=== PATIENT | female | born 1965 | race African-American/Black ===

== ENCOUNTER 2016-05-20 15:16 | Inpatient (IN) | payer MEDICAID ==
[~2016-05-20] VITALS: Ht 162.6 cm; Wt 72.2 kg
[~2016-05-20 15:16] MED LIST: FURO40TA PO; KPHOS250 PO; LACT10SO PO; MAGN500T2 PO; PENT400T PO; PHYT5TAB2 PO; POTA-163 PO; PROT40TA PO; SPIR100T PO; VITA100T2 PO; XIFA550T4 PO
[2016-05-20 15:17] VITALS: BP 128/74; PULSE 91; RESP 14; TEMP 99.4; O2SAT 100
[2016-05-20 16:26] LABS: AUTOMATED NEUTROPHIL # 2.4 TH/MM3 (1.8-7.7); BASOPHIL % 0.4 % (0.0-2.0); EOSINOPHIL # 0.1 TH/MM3 (0-0.4); EOSINOPHIL % 1.6 % (0.0-4.0); HEMATOCRIT 29.4 % (35.0-46.0); LYMPH % 21.7 % (9.0-44.0); LYMPHOCYTE # 0.8 TH/MM3 (1.0-4.8); MEAN CELL VOLUME 98.2 FL (80.0-100.0); MEAN CORPUSCULAR HEMOGLOBIN 32.2 PG (27.0-34.0); MEAN CORPUSCULAR HGB CONC 32.7 % (32.0-36.0); MONO % 13.9 % (0.0-8.0); NEUT % 62.4 % (16.0-70.0); PLATELET COUNT 52 TH/MM3 (150-450); RED BLOOD COUNT 2.99 MIL/MM3 (4.00-5.30); RED CELL DISTRIBUTION WIDTH 24.3 % (11.6-17.2); WHITE BLOOD COUNT 3.9 TH/MM3 (4.0-11.0)
[2016-05-20 16:27] LABS: HEMO FLAGS AUTO DIFF
[2016-05-20 16:48] LABS: ALT (GPT) 28 U/L (10-53); ANION GAP 8 MEQ/L (5-15); AST (GOT) 52 U/L (15-37); BICARBONATE 21.6 MEQ/L (21.0-32.0); BLOOD UREA NITROGEN 5 MG/DL (7-18); CHLORIDE 103 MEQ/L (98-107); GLOMERULAR FILTRATION RATE 90 ML/MIN (>89); SODIUM (NA) 133 MEQ/L (136-145)
[2016-05-20 16:50] LABS: ALKALINE PHOSPHATASE 190 U/L (45-117); TOTAL BILIRUBIN ADULT 4.9 MG/DL (0.2-1.0)
[2016-05-20 17:09] LABS: BLOOD, URINE SMALL (NEG); COMMENT (UR) CULT NOT INDICATED; CULTURE IF INDICATED CULT NOT INDICATED; GLUCOSE,URINE NEG (NEG); HYALINE CAST, URINE 1 /lpf (RARE); KETONE, URINE NEG (NEG); NITRITE,URINE NEG (NEG); PH, URINE 6.5 (5.0-8.5); SQUAMOUS EPITHELIAL CELL URINE 4 /hpf (0-5); URINE COLOR YELLOW (YELLW/STRAW)
--- NOTE | 2016-05-20 17:12 | PD ---
HPI Chief Complaint: Abdominal Pain Time Seen by Provider: 17:12 Travel History International Travel<30 days: No Contact w/Intl Traveler<30days: No Traveled to known affect area: No History of Present Illness HPI 50-year-old female with history of end-stage liver disease secondary to alcoholic cirrhosis, ascites, continued alcohol dependency in 3-4 beers daily up until May 06, 2016, presents to emergency department for evaluation of abdominal pain, diarrhea, and intermittent fever since being discharged May 14, 2016. Patient states she has taken ibuprofen to help with her fever and her temperature max has been 101. She reports nonproductive cough and mild chest congestion. She reports no significant chest pain. States her abdominal pain is isolated to the right side and around the site where she reports the paracentesis was performed. She denies any urinary symptoms. States bowel movements have been without christopher red or black tarry stools. Denies any other symptoms at this time. PFSH Past Medical History Arthritis: No Asthma: Yes Autoimmune Disease: No Blood Disorders: Yes (ETOH ABUSE) Anxiety: Yes Depression: No Heart Rhythm Problems: No Cancer: No Cardiovascular Problems: Yes High Cholesterol: No Chemotherapy: No Chest Pain: No Congestive Heart Failure: No Cirrhosis: Yes COPD: No Cerebrovascular Accident: No Diabetes: No Diminished Hearing: No Endocrine: No Gastrointestinal Disorders: Yes (ESOPHAGEAL VARICIES.) GERD: Yes Glaucoma: No Genitourinary: No Hepatitis: Yes Hiatal Hernia: No Hypertension: Yes Immune Disorder: No Kidney Stones: No Musculoskeletal: No Neurologic: No Psychiatric: No Reproductive: No Respiratory: Yes Immunizations Current: Yes Migraines: No Myocardial Infarction: No Radiation Therapy: No Renal Failure: No Seizures: No Sickle Cell Disease: No Sleep Apnea: No Thyroid Disease: No Ulcer: Yes ?: Not : 3 Para: 2 Past Surgical History Abdominal Surgery: No AICD: No Appendectomy: No Arteriovenous Shunt: No Cardiac Surgery: No Section: Yes Cholecystectomy: No Ear Surgery: No Endocrine Surgery: No Eye Surgery: No Gynecologic Surgery: No Insulin Pump: No Joint Replacement: Yes Oral Surgery: No Pacemaker: No Thoracic Surgery: No Other Surgery: Yes (ESOPHAGEAL VARICIES) Social History Alcohol Use: Yes (beer daily) Tobacco Use: No Substance Use: No Allergies-Medications (Allergen,Severity, Reaction): Coded Allergies: Levofloxacin (Verified Allergy, Severe, Rash, 05/20/16) Reported Meds & Prescriptions Reported Meds & Active Scripts Active Magnesium Oxide 500 Mg Tab 500 Mg PO DAILY Potassium Chloride ER (Potassium Chloride) 20 Meq Tab 20 Meq PO DAILY Furosemide 40 Mg Tab 40 Mg PO DAILY Lactulose Liq (Lactulose) 10 Gm/15 Ml Soln 30 Ml PO DAILY Protonix (Pantoprazole Sodium) 40 Mg Tab 40 Mg PO DAILY Pentoxifylline ER (Pentoxifylline) 400 Mg Tab 400 Mg PO Q8H Mephyton (Phytonadione) 5 Mg Tab 5 Mg PO DAILY K-Phos Neutral (Potassium Phos/Sodium Phos) 155-852-130 Mg Tab 250 Mg PO Q6HR Xifaxan (Rifaximin) 550 Mg Tab 550 Mg PO BID Vitamin B-1 (Thiamine HCl) 100 Mg Tab 100 Mg PO DAILY Spironolactone 100 Mg Tab 100 Mg PO DAILY Review of Systems Except as stated in HPI: all other systems reviewed are Neg Physical Exam Narrative GENERAL: Chronically ill-appearing female patient, ambulatory and without distress. SKIN: Warm and dry. HEAD: Normocephalic. Atraumatic EYES: No scleral icterus. No injection or drainage. NECK: Supple, trachea midline. No JVD or lymphadenopathy. CARDIOVASCULAR: Regular rate and rhythm. 2/6 systolic murmur. RESPIRATORY: Breath sounds diminished, coarse, equal bilaterally. No accessory muscle use. GASTROINTESTINAL: Rotund, soft, tender right upper quadrant without rebound tenderness. Ascitic abdomen. No guarding. MUSCULOSKELETAL: No cyanosis. Distal pulses are palpable. Cap refill is within normal limits. BACK: Nontender without obvious deformity. No CVA tenderness. Data Data Last Documented VS Vital Signs Date Time Temp Pulse Resp B/P Pulse Ox O2 Delivery O2 Flow Rate FiO2 05/20/16 17:18 99.6 91 27 139/83 100 Room Air Orders Complete Blood Count With Diff (05/20/16 15:28) Comprehensive Metabolic Panel (05/20/16 15:28) Urinalysis - C+S If Indicated (05/20/16 15:28) Lactic Acid Sepsis Protocol (05/20/16 15:28) Blood Culture (05/20/16 15:28) Iv Access Insert/Monitor (05/20/16 15:28) Oxygen Administration (05/20/16 15:28) Oximetry (05/20/16 15:28) Ammonia (05/20/16 15:28) Influenzae A/B Antigen (05/20/16 17:24) Chest, Pa & Lat (05/20/16 ) Electrocardiogram (05/20/16 ) C Diff Toxin Pcr (05/20/16 17:42) Ct Abd/Pel W/O Iv Contrast (05/20/16 ) Metronidazole 500 Mg Inj (Flagyl 500 Mg (05/20/16 19:00) Ceftriaxone Inj (Rocephin Inj) (05/20/16 19:00) Admit Order (Ed Use Only) (05/20/16 19:08) Labs Laboratory Tests Test 05/20/16 05/20/16 05/20/16 16:07 16:39 18:35 White Blood Count 3.9 TH/MM3 Red Blood Count 2.99 MIL/MM3 Hemoglobin 9.6 GM/DL Hematocrit 29.4 % Mean Corpuscular Volume 98.2 FL Mean Corpuscular Hemoglobin 32.2 PG Mean Corpuscular Hemoglobin 32.7 % Concent Red Cell Distribution Width 24.3 % Platelet Count 52 TH/MM3 Mean Platelet Volume 10.9 FL Neutrophils (%) (Auto) 62.4 % Lymphocytes (%) (Auto) 21.7 % Monocytes (%) (Auto) 13.9 % Eosinophils (%) (Auto) 1.6 % Basophils (%) (Auto) 0.4 % Neutrophils # (Auto) 2.4 TH/MM3 Lymphocytes # (Auto) 0.8 TH/MM3 Monocytes # (Auto) 0.5 TH/MM3 Eosinophils # (Auto) 0.1 TH/MM3 Basophils # (Auto) 0.0 TH/MM3 CBC Comment AUTO DIFF Differential Comment AUTO DIFF CONFIRMED Sodium Level 133 MEQ/L Potassium Level 4.0 MEQ/L Chloride Level 103 MEQ/L Carbon Dioxide Level 21.6 MEQ/L Anion Gap 8 MEQ/L Blood Urea Nitrogen 5 MG/DL Creatinine 0.82 MG/DL Estimat Glomerular Filtration 90 ML/MIN Rate Random Glucose 147 MG/DL Lactic Acid Level 2.5 mmol/L 1.3 mmol/L Calcium Level 8.0 MG/DL Total Bilirubin 4.9 MG/DL Aspartate Amino Transf 52 U/L (AST/SGOT) Alanine Aminotransferase 28 U/L (ALT/SGPT) Alkaline Phosphatase 190 U/L Ammonia 17 MCMOL/L Total Protein 7.1 GM/DL Albumin 2.6 GM/DL Urine Color YELLOW Urine Turbidity CLEAR Urine pH 6.5 Urine Specific [place] 1.011 Urine Protein NEG mg/dL Urine Glucose (UA) NEG mg/dL Urine Ketones NEG mg/dL Urine Occult Blood SMALL Urine Nitrite NEG Urine Bilirubin SMALL Urine Urobilinogen LESS THAN 2.0 MG/DL Urine Leukocyte Esterase SMALL Urine RBC 8 /hpf Urine WBC 2 /hpf Urine Squamous Epithelial 4 /hpf Cells Urine Hyaline Casts 1 /lpf Microscopic Urinalysis Comment CULT NOT INDICATED MDM Medical Decision Making Medical Screen Exam Complete: Yes Emergency Medical Condition: Yes Medical Record Reviewed: Yes Differential Diagnosis Peritonitis versus liver cirrhosis versus ascites versus sepsis versus electrolyte abnormality versus UTI versus influenza versus pneumonia Narrative Course 50 year-old female presents to emergency department for evaluation of persistent abdominal pain, diarrhea, and fever since being discharged from the 2015. Patient appears chronically ill. She does have tenderness deep palpation of the abdomen but without definite peritoneal signs. Patient's CBC is consistent with previous lab work. She is looking with white count 3.9. She does have anemia hemoglobin 9.6. CMP is without acute concern. Lactic acid is 2.5. Ammonia 17. I discussed the patient my attending physician Dr. Rojas who also assessed the patient a sheet is given IV Flagyl and Rocephin. CT imaging of the abdomen shows cirrhosis and portal hypertension; moderate, gallbladder wall thickening with edema and associated ascites, left adnexal cyst. Chest x-ray shows mild interstitial prominence, lingular subsegmental atelectasis. I discussed the patient with Dr. Orozco, [facility]. Patient will be admitted observation to the hospitalist service. Diagnosis Primary Impression: Liver cirrhosis Qualified Code: K70.31 - Alcoholic cirrhosis of liver with ascites Additional Impressions: Abdominal pain Qualified Code: R10.11 - Right upper quadrant abdominal pain Anemia Qualified Code: D64.9 - Anemia, unspecified type Ascites Qualified Code: K70.31 - Ascites due to alcoholic cirrhosis Admitting Information Admitting Physician Requests: Observation Condition: Stable Maite Clayton BO May 20, 2016 17:12
[2016-05-20 17:18] VITALS: BP 139/83; PULSE 91; RESP 27; TEMP 99.6; O2SAT 100
[2016-05-20 17:32] LABS: SCAN/DIFF AUTO DIFF CONFIRMED
[2016-05-20 18:15] LABS: LACTIC ACID GHOST NOT REPORTABLE
--- NOTE | 2016-05-20 18:26 | RADRPT ---
EXAM DATE/TIME: 05/20/2016 18:04 [facility] COMPARISON: CHEST PA & LAT, May 06, 2010, 10:35. INDICATIONS : Shortness of breath MEDICAL HISTORY : Cirrhosis. Hypertension. Gastroesophageal reflux disease.Ulcers SURGICAL HISTORY : Esophageal varices repair ENCOUNTER: Initial ACUITY: 1 day PAIN SCORE: 0/10 LOCATION: Bilateral chest FINDINGS: Cardiomegaly. Lingular atelectasis, subsegmental. Slight wedging of T8 and T12 again noted. No consol idation or effusion. mild interstitial prominence. CONCLUSION: Mild interstitial prominence. Lingular subsegmental atelectasis. Andrew Rowe MD on May 20, 2016 at 18:24 Board Certified Radiologist. This report was verified electronically.
--- NOTE | 2016-05-20 18:55 | RADRPT ---
EXAM DATE/TIME: 05/20/2016 18:40 [facility] COMPARISON: CT ABDOMEN & PELVIS W CONTRAST, May 07, 2016, 22:08. INDICATIONS : Diffuse abdominal pain with fever today; recent history of liver cirrhosis with fluid drainage and bl ood transfusions. ORAL CONTRAST: No oral contrast ingested. RADIATION DOSE: 14.22 CTDIvol (mGy) MEDICAL HISTORY : Hypertension. Cardiovascular disease Cirrhosis.Hepatitis. SURGICAL HISTORY : None. ENCOUNTER: Initial ACUITY: 1 day PAIN SCALE: 6/10 LOCATION: Diffuse abdomen/pelvis TECHNIQUE: Volumetric scanning of the abdomen and pelvis was performed. Using automated exposure control and ad justment of the mA and/or kV according to patient size, radiation dose was kept as low as reasonably achievable to obtain optimal diagnostic quality images. FINDINGS: Cirrhotic appearing liver is again seen with evidence of portal hypertension, anasarca, ascites, ther e is disease and splenomegaly. The pancreas, bilateral adrenal glands, bilateral kidneys are unremark able. There is no evidence of bowel obstruction. Urinary bladder and uterus are unremarkable. A small cyst is suspected of the left ovary measuring 1.2 cm. There is diverticulosis without evidence of di verticulitis. Subcentimeter retroperitoneal and periportal lymph nodes. There is atelectasis at the l mackenzie bases. Osseous structures demonstrate remote left-sided rib fractures. There is a contracted gall bladder with gallbladder wall thickening/gallbladder wall edema identified. CONCLUSION: 1. Cirrhosis and portal hypertension stigmata as described above. 2. Gallbladder wall thickening/edema noted and associated ascites. 3. Left adnexal cyst. Andrew Rowe MD on May 20, 2016 at 18:51 Board Certified Radiologist. This report was verified electronically.
[2016-05-20] MEDS ORDERED: metroNIDAZOLE 500 MG INJ 100 ML IV ONE (19:00)
[2016-05-20] MEDS ORDERED: cefTRIAXone INJ 1,000 MG in SODIUM CHLORIDE 0.9% INJ 100 ML IV ONE (19:00)
[2016-05-20 19:25] VITALS: BP 126/66; PULSE 92; RESP 24; O2SAT 96
[2016-05-20] MEDS ORDERED: SODIUM CHLORIDE 0.9% FLUSH 5 ML FLUSH FLUSH PRN (20:15)
[2016-05-20] MEDS ORDERED: NALOXONE HCL 0.4 MG/ML AMP IV PRN (20:15)
[2016-05-20] MEDS: PENTOXIFYLLINE 400 MG CONTROLLED RELEASE TAB PO SCH (20:44)
[2016-05-20] MEDS: RIFAXIMIN 550 MG TAB PO SCH (20:44)
[2016-05-20] MEDS ORDERED: SODIUM CHLORIDE 0.9% FLUSH 5 ML FLUSH FLUSH SCH (21:00)
--- NOTE | 2016-05-20 22:01 | HHI.HP ---
[facility] No Primary Care Physician Admission Diagnosis END STAGE CIRRHOSIS; ABDOMINAL PAIN; FEVER Diagnoses: Chief Complaint: Shortness of breath, fever, abdominal pain Travel History International Travel<30 Days: No Contact w/Intl Traveler <30 Da: No Traveled to Known Affected Are: No History of Present Illness History from patient, ER PA communication, and review of medical records. Patient is also known to me from prior hospitalization. Patient was discharged from our hospital on May 14, 2016. She was managed at that time for GI bleed/end-stage alcoholic liver cirrhosis/hepatic encephalopathy/sepsis with colitis seen on colonoscopy/UTI.. She reports that since discharge, she has been having high-grade fevers of 102- 103. Her daughter has been giving her cold showers at home. She also reports of having constant diarrhea and not able to control her bowel movements. Her daughter states that she has to clean her toilette almost every 30 minutes or so. Patient states that she actually is not taking lactulose at home at all because of this diarrhea. However denies any black color stool. Denies any vomiting blood. Reports of nausea though. Also reported shortness of breath. Abdominal pain is also present at right upper quadrant area. Reports of increasing abdominal distention as well. Patient is also noted to have significant weight gain in the form of fluid since the last time I saw her which was on May 04, 2016. In the emergency room, patient was given Rocephin and Flagyl. At the time of my exam, patient is awake, alert, oriented. However she is quite weak and looks chronically ill. She has significantly deteriorated from the last time I saw her. She is noted to have tactile fever as well. Her nurse reported to me that her temperature is 103 at present. Review of Systems Constitutional: COMPLAINS OF: Fatigue, Fever, Weight gain, DENIES: Diaphoretic episodes, Weight loss, Chills Respiratory: COMPLAINS OF: Cough, Shortness of breath, DENIES: Apneas, Snoring , Wheezing, Hemoptysis, Sputum production Cardiovascular: COMPLAINS OF: Dyspnea on Exertion, Lower Extremity Edema, Orthopnea, DENIES: Chest pain, Palpitations, Syncope, PND Gastrointestinal: COMPLAINS OF: Abdominal pain, Diarrhea, Nausea, DENIES: Black stools, Bloody stools, Constipation, Vomiting Genitourinary: DENIES: Urinary frequency, Urinary incontinence, Urgency, Hematuria, Dysuria Neurologic: COMPLAINS OF: Abnormal gait, Paresthesias, Tremor, Poor Balance, DENIES: Seizures, Speech Problems Past Family Social History Past Medical History Liver cirrhosis Esophageal varicesstatus post banding Portal hypertension Hypertension History of MRSA pneumonia Anemia 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 Status post cholecystostomy tube placement. Past Surgical History Jaw wires Cholecystostomy tube placement Variceal banding EGDs and colonoscopies Reported Medications Patient's medications list from previous discharge on the reviewed. Patient and daughter reported compliance with it. The only medicine that she is not taking at home now his lactulose. This is because of her ongoing diarrhea. Allergies: Coded Allergies: Levofloxacin (Verified Allergy, Severe, Rash, 05/20/16) Family History History of hypothyroidism in multiple family members Social History Denies smoking. Reports she is chronic alcoholic but was sober for a long time. She restarted drinking about 6 months ago. Denies any drug abuse. Physical Exam Vital Signs Vital Signs Date Time Temp Pulse Resp B/P Pulse Ox O2 Delivery O2 Flow Rate FiO2 05/20/16 19:25 92 24 126/66 96 Room Air 05/20/16 17:18 99.6 91 27 139/83 100 Room Air 05/20/16 15:17 99.4 91 14 128/74 100 Room Air Physical Exam GENERAL: This is a chronically ill patient, in moderate distress from fever and chills. SKIN: Superficial ecchymosis. Spider angiomata. HEAD: Atraumatic. Normocephalic. No temporal or scalp tenderness. EYES: Scleral icterus present. No injection or drainage. ENT: Nose without bleeding, purulent drainage or septal hematoma. Airway patent. NECK: Trachea midline. No JVD CARDIOVASCULAR: Tachycardic, regular rhythm without murmurs, gallops, or rubs. RESPIRATORY: Bilaterally decreased air entry. GASTROINTESTINAL: Abdomen distended, tenderness diffusely with more so on the right upper quadrant. Bowel sounds presents. No rebound. No guarding. MUSCULOSKELETAL: Extremities without clubbing, cyanosis. Mild bilateral lower extremity 1+ pitting edema.. No calf tenderness. NEUROLOGICAL: Awake and alert.Motor and sensory grossly within normal limits. Normal speech. Laboratory Laboratory Tests Test 05/20/16 05/20/16 05/20/16 16:07 16:39 18:35 White Blood Count 3.9 Red Blood Count 2.99 Hemoglobin 9.6 Hematocrit 29.4 Mean Corpuscular Volume 98.2 Mean Corpuscular Hemoglobin 32.2 Mean Corpuscular Hemoglobin 32.7 Concent Red Cell Distribution Width 24.3 Platelet Count 52 Mean Platelet Volume 10.9 Neutrophils (%) (Auto) 62.4 Lymphocytes (%) (Auto) 21.7 Monocytes (%) (Auto) 13.9 Eosinophils (%) (Auto) 1.6 Basophils (%) (Auto) 0.4 Neutrophils # (Auto) 2.4 Lymphocytes # (Auto) 0.8 Monocytes # (Auto) 0.5 Eosinophils # (Auto) 0.1 Basophils # (Auto) 0.0 CBC Comment AUTO DIFF Differential Comment AUTO DIFF CONFIRMED Sodium Level 133 Potassium Level 4.0 Chloride Level 103 Carbon Dioxide Level 21.6 Anion Gap 8 Blood Urea Nitrogen 5 Creatinine 0.82 Estimat Glomerular Filtration 90 Rate Random Glucose 147 Lactic Acid Level 2.5 1.3 Calcium Level 8.0 Total Bilirubin 4.9 Aspartate Amino Transf 52 (AST/SGOT) Alanine Aminotransferase 28 (ALT/SGPT) Alkaline Phosphatase 190 Ammonia 17 Total Protein 7.1 Albumin 2.6 Urine Color YELLOW Urine Turbidity CLEAR Urine pH 6.5 Urine Specific [place] 1.011 Urine Protein NEG Urine Glucose (UA) NEG Urine Ketones NEG Urine Occult Blood SMALL Urine Nitrite NEG Urine Bilirubin SMALL Urine Urobilinogen LESS THAN 2.0 Urine Leukocyte Esterase SMALL Urine RBC 8 Urine WBC 2 Urine Squamous Epithelial 4 Cells Urine Hyaline Casts 1 Microscopic Urinalysis Comment CULT NOT INDICATED Date/Time Procedure Status Source Growth 05/20/16 18:15 Influenza Types A,B Antigen (JONA) - Final Complete Nasal Washing NEGATIVE FOR FLU A AND B ANTIGEN.... 05/20/16 16:07 Aerobic Blood Culture Received Blood Peripheral Pending 05/20/16 16:07 Anaerobic Blood Culture Received Blood Peripheral Pending Result Diagram: 05/20/16 1607 05/20/16 1607 Imaging Last 48 hours Impressions Chest X-Ray 05/20/16 0000 Signed Impressions: Service Date/Time: Friday, May 20, 2016 18:04 - CONCLUSION: Mild interstitial prominence. Lingular subsegmental atelectasis. Andrew Rowe MD Abdomen/Pelvis CT 05/20/16 0000 Signed Impressions: Service Date/Time: Friday, May 20, 2016 18:40 - CONCLUSION: 1. Cirrhosis and portal hypertension stigmata as described above. 2. Gallbladder wall thickening/edema noted and associated ascites. 3. Left adnexal cyst. Andrew Rowe MD Assessment and Plan Problem List: (1) Abdominal pain ICD Code: R10.9 Status: Acute (2) Sepsis ICD Code: A41.9 Status: Acute (3) Colitis ICD Code: K52.9 Status: Resolved (4) UTI (urinary tract infection) ICD Code: N39.0 Status: Acute (5) Ascites ICD Code: R18.8 Status: Acute (6) End stage liver disease ICD Code: K72.90 Status: Acute Assessment and Plan Impression: Sepsissource unclear. Would need to rule out SBP. Possible cholecystitis. Also ongoing colitis. Rule out C. difficile colitis. Possible cholecystitiswith evidence of gallbladder wall thickening on CT, with patient's complaint of right upper quadrant abdominal pain. Symptomatic ascites Dyspneasecondary to ascites Diarrhealikely ongoing colitisrule out C. 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 Status post cholecystostomy tube placement. Plan: We'll follow culture results. Start patient on Zosyn 4.5 g IV every 6 hours. Also started on Flagyl 500 with grams IV every 6 hours until the C. difficile negative. Otherwise Zosyn will cover for anaerobes. Stool for C. difficile. Ultrasound guided thoracocentesis by IR in a.m. Will send for fluid cultures, cell count. Culture results from previous admissionreviewed. Infectious disease consult. GI consult. Obtain gallbladder ultrasound to rule out acute cholecystitis. May need to consider cholecystostomy tube in this patient if positive. Resume home meds apart from laxatives DVT prophylaxiswith SCD. GI prophylaxis on pantoprazole. Code Status Discussed with patient in detail and friend of her daughter and son. Patient clearly stated that she wanted full resuscitation and would not want to . When asked about questions regarding his care once family members and doctors are convinced of her prognosis/vegetative state on ventilator, patient still insists that she wants to live at any cost. Discussed Condition With patient, ER , patient's nurse Physician Certification 2 Midnight Certification Type: Admission for Inpatient Services Order for Inpatient Services The services are ordered in accordance with Medicare regulations or non- Medicare payer requirements, as applicable. In the case of services not specified as inpatient-only, they are appropriately provided as inpatient services in accordance with the 2-midnight benchmark. Estimated LOS (days): 4 days is the estimated time the patient will need to remain in the hospital, assuming treatment plan goals are met and no additional complications. Post-Hospital Plan: Home Problem Qualifiers (1) Abdominal pain: Qualified Code: R10.11 - Right upper quadrant abdominal pain (2) Ascites: Qualified Code: K70.31 - Ascites due to alcoholic cirrhosis Leah Orozco MD May 20, 2016 22:01
[2016-05-20] MEDS ORDERED: ACETAMINOPHEN 325 MG TAB PO ONE (22:15)
[2016-05-20] MEDS: PIPERACIL-TAZO 4.5 GM PREMIX 100 ML IV SCH (22:53)
[2016-05-20 23:20] VITALS: BP 140/67; PULSE 96; RESP 20; TEMP 100.8; O2SAT 97
[2016-05-21] VITALS (9 sets, daily range): BP systolic 100–121; BP diastolic 55–79; PULSE 82–150; RESP 18–26; TEMP 97.5–102.9; O2SAT 95–99
[2016-05-21] MEDS ORDERED: FLUMAZENIL 1 MG/10 ML VIAL IV PUSH PRN (00:45)
[2016-05-21] MEDS ORDERED: LORazepam 2 MG/ML VIAL IV PUSH PRN ×3 (00:45)
[2016-05-21] MEDS ORDERED: LORazepam 2 MG TAB PO PRN (00:45)
[2016-05-21] MEDS ORDERED: LORazepam 1 MG TAB PO PRN (00:45)
[2016-05-21] MEDS: LORazepam 2 MG/ML VIAL IV PUSH PRN (00:58)
[2016-05-21 01:07] LABS: C. DIFF EPI 027 PRESUMPTIVE NEGATIVE (NEGATIVE); C. DIFF TOXIN PCR NEGATIVE (NEGATIVE)
[2016-05-21] MEDS: SODIUM CHLORIDE 0.9% FLUSH 5 ML FLUSH IV FLUSH PRN ×2 (01:40→22:50)
[2016-05-21] MEDS ORDERED: metroNIDAZOLE 500 MG INJ 100 ML IV SCH (02:00)
[2016-05-21] MEDS: POTASSIUM PHOSPHATE/SODIUM PHOSPHATE 250 MG TAB PO SCH ×5 (02:45→22:49)
[2016-05-21] MEDS: PIPERACIL-TAZO 4.5 GM PREMIX 100 ML IV SCH ×4 (05:14→22:05)
[2016-05-21 08:58] LABS: AUTOMATED NEUTROPHIL # 5.5 TH/MM3 (1.8-7.7); BASOPHIL % 0.6 % (0.0-2.0); EOSINOPHIL % 0.2 % (0.0-4.0); HEMATOCRIT 29.6 % (35.0-46.0); LYMPH % 5.3 % (9.0-44.0); LYMPHOCYTE # 0.3 TH/MM3 (1.0-4.8); MEAN CELL VOLUME 96.7 FL (80.0-100.0); MEAN CORPUSCULAR HEMOGLOBIN 31.8 PG (27.0-34.0); MEAN CORPUSCULAR HGB CONC 32.9 % (32.0-36.0); MONO % 10.5 % (0.0-8.0); NEUT % 83.4 % (16.0-70.0); PLATELET COUNT 44 TH/MM3 (150-450); RED BLOOD COUNT 3.06 MIL/MM3 (4.00-5.30); WHITE BLOOD COUNT 6.6 TH/MM3 (4.0-11.0)
[2016-05-21] MEDS ORDERED: NON-FORMULARY DRUG (Magnesium Oxide 500 MG) PO SCH (09:00)
[2016-05-21] MEDS ORDERED: LACTULOSE SYRUP 20 GM/30 ML CUP PO SCH (09:00)
[2016-05-21 09:28] LABS: ALKALINE PHOSPHATASE 151 U/L (45-117); ALT (GPT) 23 U/L (10-53); ANION GAP 11 MEQ/L (5-15); AST (GOT) 56 U/L (15-37); BICARBONATE 19.2 MEQ/L (21.0-32.0); BLOOD UREA NITROGEN 9 MG/DL (7-18); CHLORIDE 103 MEQ/L (98-107); GLOMERULAR FILTRATION RATE 99 ML/MIN (>89); MAGNESIUM 1.3 MG/DL (1.5-2.5); POTASSIUM 3.9 MEQ/L (3.5-5.1); SODIUM (NA) 133 MEQ/L (136-145); TOTAL BILIRUBIN ADULT 5.7 MG/DL (0.2-1.0)
[2016-05-21 09:52] LABS: HEMO FLAGS AUTO DIFF; SCAN/DIFF AUTO DIFF CONFIRMED
[2016-05-21 09:53] LABS: ACANTHOCYTES 1+ (NORMAL)
[2016-05-21] MEDS: PANTOPRAZOLE SOD 40 MG DELAYED RELEASE TAB PO SCH (10:04)
[2016-05-21] MEDS: RIFAXIMIN 550 MG TAB PO SCH ×2 (10:05→21:20)
[2016-05-21] MEDS: SPIRONOLACTONE 100 MG TAB PO SCH (10:05)
[2016-05-21] MEDS: MAGNESIUM OXIDE 400 MG TAB PO SCH (10:05)
[2016-05-21] MEDS: PHYTONADIONE 5 MG TAB PO SCH (10:05)
[2016-05-21] MEDS: THIAMINE HCL 100 MG TAB PO SCH (10:05)
[2016-05-21] MEDS: PENTOXIFYLLINE 400 MG CONTROLLED RELEASE TAB PO SCH ×3 (10:05→21:20)
[2016-05-21] MEDS: SODIUM CHLORIDE 0.9% FLUSH 5 ML FLUSH IV FLUSH SCH ×2 (10:05→21:20)
[2016-05-21] MEDS: FUROSEMIDE 40 MG TAB PO SCH (10:05)
[2016-05-21] MEDS: POTASSIUM CHLORIDE 20 MEQ CONTROLLED RELEASE TAB PO SCH (10:05)
--- NOTE | 2016-05-21 10:53 | PD.CONS ---
Consult Service Palliative Care Consult Requested By Dr Orozco . Primary Care Physician No Primary Care Physician Reason for Consultation a. To assist with evaluation and management of symptoms including: Encephalopathy, dyspnea b. To assist medical decision maker(s) with: better understanding of current medical conditions; weighing benefits/burdens of medical treatment options; making medical treatment decisions. HPI History of Present Illness This patient presented to the ED on 05/20/16 around 3 PM, with reports of abdominal pain, constant diarrhea and intermittent fever since discharge from hospital 05/14/16. Patient reported taking ibuprofen help with fever MAXIMUM TEMPERATURE reported 101. She also reported nonproductive cough and mild chest congestion. No chest pain. Abdominal pain isolated to right side and around where she reports paracentesis was done. Urinary symptoms denied. No blood in bowel movements, no black stools. * ED course: Noted to have tenderness with deep palpation of abdomen, no peritoneal signs. CBC consistent with recent lab values. Anemic, hemoglobin 9.6. Chemistry unremarkable. Lactic acid 2.5. Ammonia 17. Patient was started on IV Flagyl, Rocephin. CT abdomen= cirrhosis, portal hypertension moderate, gallbladder wall thickening with edema associated ascites, left adnexal cyst.= Mild interstitial prominence lingular subsegmental atelectasis. Patient was admitted for further observation. * Patient reported she had stopped taking the lactulose at home because of diarrhea. Denied any vomiting. Does report nausea. Also reporting shortness of breath. Significant weight gain noted since medical attendings prior interaction with patient on 05/04. Medical attending notes that patient looks significantly deteriorated from the last time she examined her (05/04). Continues to be febrile, possible cholecystitis, probable ongoing colitis. Stool to rule out C. difficile colitis. Her dyspnea likely secondary to ascites. ID consulted, palliative care consulted, GI consulted--patient may require cholecystostomy tube. Medical attending notes discussion in detail with patient, friend, and daughter and son patient noting she wanted to be full code did not want to , patient expressing even if on a ventilator and vegetative she would want to live at any cost. Patient seen in room sleeping soundly. No visitors present. She does nod to some questions when I stimulate and speak with her however she does not open eyes for me, does not answer any questions beyond nodding. She appears comfortable at time of my exam. During abdominal exam she seems to grimace slightly ask her if she hurts and she nods yes though does not further qualify. She is lying on her side curled up, does not reposition for my exam. Following exam call to daughter, Teagan, spoke with her briefly she will be in in about 45 minutes, will plan to meet with her shortly. Later met with patient's son, daughter at length at bedside as GI BLACK BELT was concluding her visit. Patient slept for most of this meeting. Of note patient recently admitted from 05/04/16 through 05/14/16 here at [facility]. She was treated at that time for GI bleed, end-stage alcoholic liver cirrhosis/hepatic encephalopathy/sepsis, coagulopathy/thrombocytopenia, colitis found on colonoscopy. During that admission she received multiple transfusions of various blood products. Colonoscopy (05/07)---.> colitis, rectal varices, hemorrhoids, diverticulosis. Biopsy benign. Additional GI workup at that time included:MELD 23. Prior hepatitis panel negative. FRED negative. AMA <20.0. ASMA negative. Alpha antitrypsin 129, Ceruloplasmin 17. AFP 2.2. GI recommended continue supportive care with infusions as needed, patient will require therapeutic paracentesis. Patient was discharged home with her daughter. Case management notes discussion and resources given regarding alcohol treatment center/rehabilitation to patient and daughter. Patient also noted to have prolonged hospitalization due to GI bleed in 2009 from March 28 through May 12. At that time patient presented for AMS and black stools, with known history of hepatic cirrhosis, hepatitis B, hypertension and esophageal varices. She also had previously been admitted for GI bleed and endoscopy prior to that admission. At that time she reported drinking about 8 beers a day. During that admission she had prolonged ICU course, requiring mechanical ventilation, feeding tube placement. During that admission EGD done=03/29/10 which revealed portal gastropathy and esophageal varices, grade 3-4, four columns with stigmata of bleeding, s/p successful banding with four bands placed for control of bleeding. +Severe Anemia-H/H 4.7/ 15.1 on admission; patient with prolonged mechanical ventilation and significant encephalopathy--intensivists notes discussion regarding poor prognosis for long-term survival/quality of life, consider palliative care. Daughter elected to continue aggressive treatments. Patient was eventually discharged home to stay with her daughter once medically stable. Patient apparently lives in her own home independently but lost her apartment due to prolonged hospitalization, so she subsequently moved in with her 20-year-old daughter. 2008 evaluation by GI notes patient at that time with known history of esophageal varices, hepatitis B, and patient with prior treatment with a Alexandra tube for severe hemorrhage about a year prior. Function/Cognitive Trajectory Lived at home with her daughter most recently, prior to April 2016 admission lived in her own apartment. Review of Systems ROS Limitations: Altered Mental Status (lethargic, minimally arouses for my exam- limited to ROS reported to admitting H&P ) Constitutional: COMPLAINS OF: Fatigue, Fever, Weight gain, DENIES: Weight loss , Chills Respiratory: COMPLAINS OF: Cough, Shortness of breath, DENIES: Snoring, Wheezing, Hemoptysis Cardiovascular: COMPLAINS OF: Dyspnea on Exertion, Lower Extremity Edema Gastrointestinal: COMPLAINS OF: Abdominal pain, Diarrhea, Nausea, DENIES: Black stools, Bloody stools, Vomiting Genitourinary: DENIES: Urinary frequency, Urinary incontinence, Urgency, Dysuria Neurologic: COMPLAINS OF: Abnormal gait, Paresthesias, Tremor, Poor Balance, DENIES: Seizures, Speech Problems Past Family Social History Coded Allergies: Levofloxacin (Verified Allergy, Severe, Rash, 05/20/16) *MDRO Multi-Drug Resistant Organism (Verified Adverse Reaction, Unknown, MRSA, 05/21/16) MRSA (sputum) - 04/12/10 MRSA (wound) - 12/09/07 Past Medical History Liver cirrhosis Esophageal varicesstatus post banding Portal hypertension Hypertension History of MRSA pneumonia Anemia 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 Status post cholecystostomy tube placement. Past Surgical History Jaw wires Cholecystostomy tube placement Variceal banding EGDs and colonoscopies Reported Medications Magnesium Oxide 500 Mg Tab 500 Mg PO DAILY Potassium Chloride ER (Potassium Chloride) 20 Meq Tab 20 Meq PO DAILY Furosemide 40 Mg Tab 40 Mg PO DAILY Lactulose Liq (Lactulose) 10 Gm/15 Ml Soln 30 Ml PO DAILY Protonix (Pantoprazole Sodium) 40 Mg Tab 40 Mg PO DAILY Pentoxifylline ER (Pentoxifylline) 400 Mg Tab 400 Mg PO Q8H Mephyton (Phytonadione) 5 Mg Tab 5 Mg PO DAILY K-Phos Neutral (Potassium Phos/Sodium Phos) [id number] Mg Tab 250 Mg PO Q6HR Xifaxan (Rifaximin) 550 Mg Tab 550 Mg PO BID Vitamin B-1 (Thiamine HCl) 100 Mg Tab 100 Mg PO DAILY Spironolactone 100 Mg Tab 100 Mg PO DAILY . Current Medications Medications (Trade) Dose Ordered Sig/Doc Route Start Time Stop Time Status Last Admin (Lasix) 40 mg DAILY PO 05/21/16 09:00 (Protonix) 40 mg DAILY PO 05/21/16 09:00 (TRENtal SR) 400 mg Q8H PO 05/20/16 22:00 05/20/16 20:44 (Mephyton) 5 mg DAILY PO 05/21/16 09:00 (KCl) 20 meq DAILY PO 05/21/16 09:00 (K-Phos Neutral) 250 mg Q6HR PO 05/21/16 00:00 05/21/16 06:48 (Xifaxan) 550 mg BID PO 05/20/16 21:00 05/20/16 20:44 (Aldactone) 100 mg DAILY PO 05/21/16 09:00 (Vitamin B1) 100 mg DAILY PO 05/21/16 09:00 (Narcan Inj) 0.4 mg UNSCH PRN IV 05/20/16 20:15 Magnesium Oxide 400 mg 400 mg DAILY PO 05/21/16 09:00 (Zosyn 4.5 Gm Premix) 100 ml @ 200 mls/hr Q6H IV 05/20/16 23:00 05/21/16 05:14 (NS Flush) 2 ml UNSCH PRN IV FLUSH 05/21/16 00:45 05/21/16 01:40 (NS Flush) 2 ml BID IV FLUSH 05/21/16 09:00 (Ativan) 1 mg Q4H PRN PO 05/21/16 00:45 (Ativan Inj) 1 mg Q4H PRN IV PUSH 05/21/16 00:45 05/21/16 00:58 (Ativan) 2 mg Q2H PRN PO 05/21/16 00:45 (Ativan Inj) 2 mg Q2H PRN IV PUSH 05/21/16 00:45 (Ativan Inj) 2 mg Q1H PRN IV PUSH 05/21/16 00:45 (Ativan Inj) 2 mg Q15M PRN IV PUSH 05/21/16 00:45 Family History History of hypothyroidism in multiple family members. Per GI H&P 2009 noted with father with cirrhosis and aids, mother with hypertension. Substance Use Tobacco: Denies smoking Alcohol: Reported to be chronic alcoholic and quit March 2010, resumed drinking about 6 months ago Prescription med abuse: Denies Illicits: History of cocaine use per EMR/prior H&P. . Psychosocial History Originally from [place] though has lived in [place] for much of her life. Has not worked for many years, has been on disability due to medical issues. Not . Supported by one adult son Blade, one adult daughter Teagan. Priors most recent hepatic issues had been doing well, functionally independent , enjoying socializing with friends and family. Ethical and Legal Issues Patient mental status fluctuates secondary to medical conditions. She is oriented and appropriate at times though insight also appears to fluctuate. Would be best supported in decision-making by healthcare proxy. Not . Has 2 adult children who would be legal HCP per [place] statutes. . Physical Exam Vital Signs Date Time Temp Pulse Resp B/P Pulse Ox O2 Delivery O2 Flow Rate FiO2 05/21/16 08:00 97.8 118 18 100/58 95 05/21/16 08:00 97.5 05/21/16 04:07 98.0 127 18 100/66 96 05/21/16 03:49 100.2 132 26 96 05/21/16 01:55 150 05/21/16 01:52 125 05/21/16 01:30 102.9 132 24 109/79 05/20/16 23:20 100.8 96 20 140/67 97 05/20/16 19:25 92 24 126/66 96 Room Air 05/20/16 17:18 99.6 91 27 139/83 100 Room Air 05/20/16 15:17 99.4 91 14 128/74 100 Room Air Exam CONSTITUTIONAL/GENERAL: Jaundiced, lethargic, chronically ill-appearing patient.. TUBES/LINES/DRAINS: Peripheral IV 2 right upper extremity SKIN:+ jaundice. No rashes, or lesions. Skin temperature appropriate. Multiple telangiectasias to lower extremities, trunk. HEAD: Atraumatic. Normocephalic. EYES: Does not open eyes for my exam had to force open to examine sclera. + scleral icterus. ENT: Nose without bleeding or purulent drainage. Does not open mouth for oral exam. NECK: Trachea midline. Supple, nontender. No palpable thyroid enlargement or nodularity. CARDIOVASCULAR: Regular rate and rhythm, no murmurs. Peripheral pulses symmetric. RESPIRATORY/CHEST: Symmetric, unlabored respirations on room air. Clear to auscultation. Breath sounds equal bilaterally. GASTROINTESTINAL: Limited abdominal exam, patient side lying and does not reposition for exam. Abdomen soft, distended, tender to palpation-though patient does not localize. + +hepatosplenomegaly. Bowel sounds normoactive. MUSCULOSKELETAL: Extremities without clubbing, cyanosis, or edema. No joint effusion noted. +Multiple telangiectasias to lower extremities LYMPHATICS: No palpable cervical or supraclavicular adenopathy. NEUROLOGICAL: Partially, sleeping soundly. Minimally stirs for exam. Does not verbalize for me though does not to some questions. Does not follow simple commands for me. Localizes to touch, moves all 4 extremities. Unable to assess orientation due to lethargy. PSYCHIATRIC: No obvious anxiety/depression--limited assessment due to lethargy. . Diagnostic Tests Laboratory Laboratory Tests Test 05/20/16 05/20/16 05/20/16 05/21/16 16:07 16:39 18:35 00:05 White Blood Count 3.9 TH/MM3 (4.0-11.0) Red Blood Count 2.99 MIL/MM3 (4.00-5.30) Hemoglobin 9.6 GM/DL (11.6-15.3) Hematocrit 29.4 % (35.0-46.0) Mean Corpuscular Volume 98.2 FL (80.0-100.0) Mean Corpuscular Hemoglobin 32.2 PG (27.0-34.0) Mean Corpuscular Hemoglobin 32.7 % Concent (32.0-36.0) Red Cell Distribution Width 24.3 % (11.6-17.2) Platelet Count 52 TH/MM3 (150-450) Mean Platelet Volume 10.9 FL (7.0-11.0) Neutrophils (%) (Auto) 62.4 % (16.0-70.0) Lymphocytes (%) (Auto) 21.7 % (9.0-44.0) Monocytes (%) (Auto) 13.9 % (0.0-8.0) Eosinophils (%) (Auto) 1.6 % (0.0-4.0) Basophils (%) (Auto) 0.4 % (0.0-2.0) Neutrophils # (Auto) 2.4 TH/MM3 (1.8-7.7) Lymphocytes # (Auto) 0.8 TH/MM3 (1.0-4.8) Monocytes # (Auto) 0.5 TH/MM3 (0-0.9) Eosinophils # (Auto) 0.1 TH/MM3 (0-0.4) Basophils # (Auto) 0.0 TH/MM3 (0-0.2) CBC Comment AUTO DIFF Differential Comment AUTO DIFF CONFIRMED Sodium Level 133 MEQ/L (136-145) Potassium Level 4.0 MEQ/L (3.5-5.1) Chloride Level 103 MEQ/L (98-107) Carbon Dioxide Level 21.6 MEQ/L (21.0-32.0) Anion Gap 8 MEQ/L (5-15) Blood Urea Nitrogen 5 MG/DL (7-18) Creatinine 0.82 MG/DL (0.50-1.00) Estimat Glomerular Filtration 90 ML/MIN (>89) Rate Random Glucose 147 MG/DL (74-106) Lactic Acid Level 2.5 mmol/L 1.3 mmol/L (0.4-2.0) (0.4-2.0) Calcium Level 8.0 MG/DL (8.5-10.1) Total Bilirubin 4.9 MG/DL (0.2-1.0) Aspartate Amino Transf 52 U/L (15-37) (AST/SGOT) Alanine Aminotransferase 28 U/L (10-53) (ALT/SGPT) Alkaline Phosphatase 190 U/L (45-117) Ammonia 17 MCMOL/L (11-32) Total Protein 7.1 GM/DL (6.4-8.2) Albumin 2.6 GM/DL (3.4-5.0) Urine Color YELLOW (YELLW/STRAW) Urine Turbidity CLEAR (CLEAR) Urine pH 6.5 (5.0-8.5) Urine Specific [place] 1.011 (1.002-1.035) Urine Protein NEG mg/dL (NEG-TRACE) Urine Glucose (UA) NEG mg/dL (NEG) Urine Ketones NEG mg/dL (NEG) Urine Occult Blood SMALL (NEG) Urine Nitrite NEG (NEG) Urine Bilirubin SMALL (NEG) Urine Urobilinogen LESS THAN 2.0 MG/DL (LESS THAN 2.0) Urine Leukocyte Esterase SMALL (NEG) Urine RBC 8 /hpf (0-3) Urine WBC 2 /hpf (0-5) Urine Squamous Epithelial 4 /hpf (0-5) Cells Urine Hyaline Casts 1 /lpf (RARE) Microscopic Urinalysis Comment CULT NOT INDICATED Stool C. difficile Toxin (PCR) NEGATIVE (NEGATIVE) Stl C. difficile Toxin PRESUMPTIVE Epiderm 027 NEGATIVE (NEGATIVE) Test 05/21/16 07:39 White Blood Count 6.6 TH/MM3 (4.0-11.0) Red Blood Count 3.06 MIL/MM3 (4.00-5.30) Hemoglobin 9.7 GM/DL (11.6-15.3) Hematocrit 29.6 % (35.0-46.0) Mean Corpuscular Volume 96.7 FL (80.0-100.0) Mean Corpuscular Hemoglobin 31.8 PG (27.0-34.0) Mean Corpuscular Hemoglobin 32.9 % Concent (32.0-36.0) Red Cell Distribution Width 24.0 % (11.6-17.2) Platelet Count 44 TH/MM3 (150-450) Mean Platelet Volume 10.8 FL (7.0-11.0) Neutrophils (%) (Auto) 83.4 % (16.0-70.0) Lymphocytes (%) (Auto) 5.3 % (9.0-44.0) Monocytes (%) (Auto) 10.5 % (0.0-8.0) Eosinophils (%) (Auto) 0.2 % (0.0-4.0) Basophils (%) (Auto) 0.6 % (0.0-2.0) Neutrophils # (Auto) 5.5 TH/MM3 (1.8-7.7) Lymphocytes # (Auto) 0.3 TH/MM3 (1.0-4.8) Monocytes # (Auto) 0.7 TH/MM3 (0-0.9) Eosinophils # (Auto) 0.0 TH/MM3 (0-0.4) Basophils # (Auto) 0.0 TH/MM3 (0-0.2) CBC Comment AUTO DIFF Differential Comment AUTO DIFF CONFIRMED Acanthocytes 1+ (NORMAL) Sodium Level 133 MEQ/L (136-145) Potassium Level 3.9 MEQ/L (3.5-5.1) Chloride Level 103 MEQ/L (98-107) Carbon Dioxide Level 19.2 MEQ/L (21.0-32.0) Anion Gap 11 MEQ/L (5-15) Blood Urea Nitrogen 9 MG/DL (7-18) Creatinine 0.75 MG/DL (0.50-1.00) Estimat Glomerular Filtration 99 ML/MIN (>89) Rate Random Glucose 106 MG/DL (74-106) Calcium Level 7.6 MG/DL (8.5-10.1) Magnesium Level 1.3 MG/DL (1.5-2.5) Total Bilirubin 5.7 MG/DL (0.2-1.0) Aspartate Amino Transf 56 U/L (15-37) (AST/SGOT) Alanine Aminotransferase 23 U/L (10-53) (ALT/SGPT) Alkaline Phosphatase 151 U/L (45-117) Total Protein 6.5 GM/DL (6.4-8.2) Albumin 2.3 GM/DL (3.4-5.0) Result Diagram: 05/21/16 0739 05/21/16 0739 Microbiology Microbiology Date/Time Procedure Status Source Growth 05/20/16 16:07 Aerobic Blood Culture Received Blood Peripheral Pending 05/20/16 16:07 Anaerobic Blood Culture Received Blood Peripheral Pending 05/20/16 16:07 Aerobic Blood Culture Received Blood Peripheral Pending 05/20/16 16:07 Anaerobic Blood Culture Received Blood Peripheral Pending 05/20/16 18:15 Influenza Types A,B Antigen (JONA) - Final Complete Nasal Washing NEGATIVE FOR FLU A AND B ANTIGEN.... Imaging Last Impressions Chest X-Ray 05/20/16 0000 Signed Impressions: Service Date/Time: Friday, May 20, 2016 18:04 - CONCLUSION: Mild interstitial prominence. Lingular subsegmental atelectasis. Andrew Rowe MD Abdomen/Pelvis CT 05/20/16 0000 Signed Impressions: Service Date/Time: Friday, May 20, 2016 18:40 - CONCLUSION: 1. Cirrhosis and portal hypertension stigmata as described above. 2. Gallbladder wall thickening/edema noted and associated ascites. 3. Left adnexal cyst. Andrew Rowe MD Procedures Plan for ultrasound-guided paracentesis 05/21 Patient/Family Conference Present at Family Conference: Jonathan Murguia, farida Candelaria Family Conference Location: Bedside Issues Discussed: Met with patient and son and daughter (HCP's) at length at bedside. Met with them for approximately 40 minutes. (Patient slept for much of this discussion though she did wake up from time to time & participate very briefly) Discussion included: * Palliative care role, purpose, approach * Additional medical, psychosocial, and spiritual history * Patients general health, functional status, and cognitive changes in the months leading up to the current hospitalization * Patient/family understanding of the current medical problems * Patient/family understanding of prognosis * Patients goals of care as best understood from advance directives and/or conversations and/or values * Current medical treatment options and benefits/burdens of those options * Likely scenarios comparing ongoing aggressive care with a transition to comfort measures only * Legal decision makers per [place] statutes * CODE STATUS-patient should remain full code per HCP * Questions answered to the best of my ability * Palliative care contact information provided Son and daughter seem to have a good understanding of underlying conditions and overall prognosis. He indicates until most recent relapse with alcohol patient had been doing very well and medically had been very stable. I reviewed with them current diagnostics, no significant changes from a liver/GI standpoint since most recent discharge; and that to determine long-term liver prognosis ultimately we need another 6 weeks or so to see liver resolving from most recent acute episode. I did explore them possible trajectories going forward best case scenario if acute hepatitis resolves and patient regains baseline function, versus worst-case scenario and patient continues to worsen and becomes end-stage liver disease. Review of complications/comorbidities that occur with end-stage liver disease and encourage them to talk with patient as she becomes more stable and aware regarding long-term planning /end-of-life planning should she encounter end-stage liver disease processes. They are supportive of patient trying to get through current acute issues and regain stability and her prior level of function and health. They are open to continued conversations regarding treatments/goals as clinical course evolves. Assessment and Plan Disease Oriented Problem List: (1) Ascites (2) Liver cirrhosis (3) Colitis (4) Sepsis (5) UTI (urinary tract infection) (6) End stage liver disease (7) Abdominal pain (8) Anemia (9) Hyponatremia Symptom Scale: (1) Pain, abdominal (2) Dyspnea (3) Nausea (4) Encephalopathy Pertinent Non-Medical Issues Psychosocial:Originally from [place] though has lived in [place] for much of her life. Has not worked for many years, has been on disability due to medical issues. Not . Supported by one adult son Blaed, one adult daughter Teagan. Priors most recent hepatic issues had been doing well, functionally independent, enjoying socializing with friends and family. Spiritual: Legal: Patient mental status fluctuates secondary to medical conditions. She is oriented and appropriate at times though insight also appears to fluctuate. Would be best supported in decision-making by healthcare proxy. Not . Has 2 adult children who would be legal HCP per [place] statutes. Ethical issues impacting care: Important Contacts Teagan Rosenthal (Daughter) [phone] Son Blade . Prognosis This patient presented for recurrent abdominal pain and fever, findings of sepsis, probable cholecystitis. was recently discharged one week ago for acute hospitalization for acute alcoholic liver disease. Patient continues to have associated issues including abdominal pain, ascites, thrombocytopenia, ? cholecystitis. If she continues to drink, she will likely continue to experience complications related to end-stage liver disease, limited life expectancy, appropriate for hospice if goals are compatible. However, if she abstains from alcohol, still possible her liver function can stabilize and she could live for many years. . Code Status: Full Code Plan * Legal decision maker:Patient mental status fluctuates secondary to medical conditions. She is oriented and appropriate at times though insight also appears to fluctuate. Would be best supported in decision-making by healthcare proxy. Not . Has 2 adult children who would be legal HCP per [place] statutes. * Goals: patient has expressed aggressive goals thus far. Met with son and daughter at length today at bedside, patient slept for much of this meeting. Goals are aggressive, they are supportive of trying to get patient through this acute issue and back to the stability that she had prior to her most recent relapse with alcohol. * CODE STATUS: FULL (per prior discussion w , re-visited with healthcare proxy today) * SYMPTOMS: --Encephalopathy: Multifactorialalcoholic encephalopathy, hepatic, sepsis. Ammonia 17. LFTs not significantly changed from most recent discharge. --Dyspnea: Presented with shortness of breath, likely secondary to ascites, has recently required paracentesis for drainage. --Abdominal pain: Patient endorses ongoing right upper quadrant abdominal pain since admission 1 week ago; companied by nausea. Ultrasound gallbladder negative for obstruction however does show some wall thickening,? Cholecystitis. Further workup pending, GI considering HIDA scan--patient may require cholecystostomy tube. No PRNS available-- cautious use of any opiates due to liver disease and fluctuating mental status and aggressive goals. --Nausea: Intermittent nausea with abdominal pain, no vomiting. Possible cholecystitis. Consider adding prn Zofran, reduced dose for hepatic impairment. * Palliative care will continue to follow during hospital course as condition evolves, to assist patient/decision-maker with understanding of medical conditions, weighing benefits/burdens of treatment options, for clarification of goals of treatment. Additionally will assist with any symptoms of palliative concern Time Spent Total Floor Time (mins): 70 Face to Face Time (mins): 45 >50% Counseling/Coord of Care: Yes (d/w RN, GI) Thank you for the opportunity to participate in the care of Ms. Membreno. Attestation To help prompt me to consider important information that might be impacting today's encounter and assessment, information from prior notes written by myself or my colleagues may have been "brought forward" into today's note. My signature on this note, however, is an attestation that I personally performed the exam, history, and/or decision-making noted today, and, unless otherwise indicated, the interactions with patient, family, and staff as well as the review of records all occurred today. I also attest that the listed assessment and stated plan reflect my best clinical judgment today based on the combination of historical information, prior notes, and today's exam/ interactions. When time spent is documented, it refers only to time spent today by the signer, or if indicated, combined time spent today by collaborating physician/nurse practitioner. Christy Baxter May 21, 2016 10:53
--- NOTE | 2016-05-21 11:27 | PD.CONS ---
HPI History of Present Illness This is a 50 year old who was brought to the ER for evaluation of fevers with nausea/vomiting and lethargy. She has a hx of liver cirrhosis secondary to ETOH , diagnosed in 2009. She quit drinking at that time. However she started drinking again about 6 months ago, 3-4 beers per day up until her hospitalization earlier this month. She was hospitalized from 05/04/16- for GI bleeding, ascites, low grade fevers, anemia, hepatic encephalopathy, elevated LFTs, alcoholic hepatitis, cellulitis RUE, acute kidney injury, and nonspecific colitis. At this time, her MELD score was 23. Hepatitis panel negative, FRED negative. AMA <20.0. ASMA negative. Alpha antitrypsin 129, Ceruloplasmin 17. AFP 2.2. EGD (05/05/16) and this revealed esophagitis, portal hypertension pathology revealed acute esophagitis with no fungal organisms. She then had a colonoscopy (05/07/16) and this revealed colitis, rectal varices, hemorrhoids, diverticulosis. Pathology revealed colonic mucosa without significant histopathologic abnormality. She also had an US guided paracentesis on 05/05 and 05/14. Blood, urine, and peritoneal cultures were did not grown anything. During this hospitalization, she was evaluated with She was discharged home on 05/14/16 on pentoxifylline, spironolactone, Lasix, vitamin K, KCl tablets, and lactulose. The patient and her daughter report that she has not had any further alcohol since prior to her last hospitalization. I also reports that she has been compliant with all of her medication except the lactulose which she has not taken because of diarrhea. They report that since her discharge on the she has continued to have fevers from 100.0 to 101 at home. Her daughter reports that she did give her 1 ibuprofen on the , not realizing that she wasn't supposed to take this with her liver disease. She did not give her any further ibuprofen and reports that she's been giving her cool showers to break her fevers. The patient has had generalized weakness and lethargy, but no confusion. She has had intermittent nausea and vomiting consisting of bilious material but no hematemesis. She is not having any heartburn or reflux. She has had persistent right upper quadrant pain since her last hospitalization areas she reports that this is a constant dull ache that radiates to her back. She states that her abdominal distention is actually improved and she is not having any lower extremity swelling. She does complain of diarrhea and states that she does not take the lactulose because of this. However she is not able to quantify the amount. She has not seen any blood or mucus in this. 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 S/P cholecystostomy tube placement. Past Surgical History Jaw wires Cholecystostomy tube placement Variceal banding EGDs and colonoscopy Paracentesis (Carisa Cuevas) Coded Allergies: Levofloxacin (Verified Allergy, Severe, Rash, 05/20/16) *MDRO Multi-Drug Resistant Organism (Verified Adverse Reaction, Unknown, MRSA, 05/21/16) MRSA (sputum) - 04/12/10 MRSA (wound) - 12/09/07 Medications Allergies Coded Allergies Type Severity Reaction Last Updated Verified Levofloxacin Allergy Severe Rash 05/20/16 Yes Active Scripts Medications Dose Route/Sig Days Date Category Magnesium Oxide 500 Mg Tab 500 Mg PO DAILY 05/14/16 Rx Potassium Chloride ER (Potassium Chloride) 20 Meq Tab 20 Meq PO DAILY 05/14/16 Rx Furosemide 40 Mg Tab 40 Mg PO DAILY 05/14/16 Rx Lactulose Liq (Lactulose) 10 Gm/15 Ml Soln 30 Ml PO DAILY 05/14/16 Rx Protonix (Pantoprazole Sodium) 40 Mg Tab 40 Mg PO DAILY 05/14/16 Rx Pentoxifylline ER (Pentoxifylline) 400 Mg Tab 400 Mg PO Q8H 05/14/16 Rx Mephyton (Phytonadione) 5 Mg Tab 5 Mg PO DAILY 05/14/16 Rx K-Phos Neutral (Potassium Phos/Sodium Phos) 155-852-130 Mg Tab 250 Mg PO Q6HR 05/14/16 Rx Xifaxan (Rifaximin) 550 Mg Tab 550 Mg PO BID 05/14/16 Rx Vitamin B-1 (Thiamine HCl) 100 Mg Tab 100 Mg PO DAILY 05/14/16 Rx Spironolactone 100 Mg Tab 100 Mg PO DAILY 12/22/16 Rx Family History History of hypothyroidism in multiple family members. Father with cirrhosis and aids, mother with hypertension. Social History Denies smoking. Reports she is chronic alcoholic but was sober for a long time. She restarted drinking about 6 months ago. But not since her last hospitalization. Denies any drug abuse. (Carisa Cuevas BO) Review of Systems Constitutional: COMPLAINS OF: Fatigue, Fever, Chills, Change in appetite, DENIES: Weight loss Respiratory: DENIES: Cough Cardiovascular: DENIES: Chest pain Gastrointestinal: COMPLAINS OF: Abdominal pain, Diarrhea, Nausea, Vomiting, Swelling of Abdomen, DENIES: Black stools, Bloody stools, Constipation, Hematemesis Musculoskeletal: COMPLAINS OF: Back pain, DENIES: Joint pain Integumentary: DENIES: Abnormal pigmentation Hematologic/lymphatic: DENIES: Bruising Neurologic: DENIES: Headache Psychiatric: DENIES: Confusion (Carisa Cuevasxavier SORIANO) GI Exam Vitals I&O Vital Signs Date Time Temp Pulse Resp B/P Pulse Ox O2 Delivery O2 Flow Rate FiO2 05/21/16 08:00 97.8 118 18 100/58 95 05/21/16 08:00 97.5 05/21/16 04:07 98.0 127 18 100/66 96 05/21/16 03:49 100.2 132 26 96 05/21/16 01:55 150 05/21/16 01:52 125 05/21/16 01:30 102.9 132 24 109/79 05/20/16 23:20 100.8 96 20 140/67 97 05/20/16 19:25 92 24 126/66 96 Room Air 05/20/16 17:18 99.6 91 27 139/83 100 Room Air 05/20/16 15:17 99.4 91 14 128/74 100 Room Air Imaging Last Impressions Chest X-Ray 05/20/16 0000 Signed Impressions: Service Date/Time: Friday, May 20, 2016 18:04 - CONCLUSION: Mild interstitial prominence. Lingular subsegmental atelectasis. Andrew Rowe MD Abdomen/Pelvis CT 05/20/16 0000 Signed Impressions: Service Date/Time: Friday, May 20, 2016 18:40 - CONCLUSION: 1. Cirrhosis and portal hypertension stigmata as described above. 2. Gallbladder wall thickening/edema noted and associated ascites. 3. Left adnexal cyst. Andrew Rowe MD Laboratory Test 05/20/16 05/20/16 05/20/16 05/21/16 16:07 16:39 18:35 00:05 White Blood Count 3.9 TH/MM3 Red Blood Count 2.99 MIL/MM3 Hemoglobin 9.6 GM/DL Hematocrit 29.4 % Mean Corpuscular Volume 98.2 FL Mean Corpuscular Hemoglobin 32.2 PG Mean Corpuscular Hemoglobin 32.7 % Concent Red Cell Distribution Width 24.3 % Platelet Count 52 TH/MM3 Mean Platelet Volume 10.9 FL Neutrophils (%) (Auto) 62.4 % Lymphocytes (%) (Auto) 21.7 % Monocytes (%) (Auto) 13.9 % Eosinophils (%) (Auto) 1.6 % Basophils (%) (Auto) 0.4 % Neutrophils # (Auto) 2.4 TH/MM3 Lymphocytes # (Auto) 0.8 TH/MM3 Monocytes # (Auto) 0.5 TH/MM3 Eosinophils # (Auto) 0.1 TH/MM3 Basophils # (Auto) 0.0 TH/MM3 CBC Comment AUTO DIFF Differential Comment AUTO DIFF CONFIRMED Sodium Level 133 MEQ/L Potassium Level 4.0 MEQ/L Chloride Level 103 MEQ/L Carbon Dioxide Level 21.6 MEQ/L Anion Gap 8 MEQ/L Blood Urea Nitrogen 5 MG/DL Creatinine 0.82 MG/DL Estimat Glomerular Filtration 90 ML/MIN Rate Random Glucose 147 MG/DL Lactic Acid Level 2.5 mmol/L 1.3 mmol/L Calcium Level 8.0 MG/DL Total Bilirubin 4.9 MG/DL Aspartate Amino Transf 52 U/L (AST/SGOT) Alanine Aminotransferase 28 U/L (ALT/SGPT) Alkaline Phosphatase 190 U/L Ammonia 17 MCMOL/L Total Protein 7.1 GM/DL Albumin 2.6 GM/DL Urine Color YELLOW Urine Turbidity CLEAR Urine pH 6.5 Urine Specific [place] 1.011 Urine Protein NEG mg/dL Urine Glucose (UA) NEG mg/dL Urine Ketones NEG mg/dL Urine Occult Blood SMALL Urine Nitrite NEG Urine Bilirubin SMALL Urine Urobilinogen LESS THAN 2.0 MG/DL Urine Leukocyte Esterase SMALL Urine RBC 8 /hpf Urine WBC 2 /hpf Urine Squamous Epithelial 4 /hpf Cells Urine Hyaline Casts 1 /lpf Microscopic Urinalysis Comment CULT NOT INDICATED Stool C. difficile Toxin (PCR) NEGATIVE Stl C. difficile Toxin PRESUMPTIVE Epiderm 027 NEGATIVE Test 05/21/16 07:39 White Blood Count 6.6 TH/MM3 Red Blood Count 3.06 MIL/MM3 Hemoglobin 9.7 GM/DL Hematocrit 29.6 % Mean Corpuscular Volume 96.7 FL Mean Corpuscular Hemoglobin 31.8 PG Mean Corpuscular Hemoglobin 32.9 % Concent Red Cell Distribution Width 24.0 % Platelet Count 44 TH/MM3 Mean Platelet Volume 10.8 FL Neutrophils (%) (Auto) 83.4 % Lymphocytes (%) (Auto) 5.3 % Monocytes (%) (Auto) 10.5 % Eosinophils (%) (Auto) 0.2 % Basophils (%) (Auto) 0.6 % Neutrophils # (Auto) 5.5 TH/MM3 Lymphocytes # (Auto) 0.3 TH/MM3 Monocytes # (Auto) 0.7 TH/MM3 Eosinophils # (Auto) 0.0 TH/MM3 Basophils # (Auto) 0.0 TH/MM3 CBC Comment AUTO DIFF Differential Comment AUTO DIFF CONFIRMED Acanthocytes 1+ Sodium Level 133 MEQ/L Potassium Level 3.9 MEQ/L Chloride Level 103 MEQ/L Carbon Dioxide Level 19.2 MEQ/L Anion Gap 11 MEQ/L Blood Urea Nitrogen 9 MG/DL Creatinine 0.75 MG/DL Estimat Glomerular Filtration 99 ML/MIN Rate Random Glucose 106 MG/DL Calcium Level 7.6 MG/DL Magnesium Level 1.3 MG/DL Total Bilirubin 5.7 MG/DL Aspartate Amino Transf 56 U/L (AST/SGOT) Alanine Aminotransferase 23 U/L (ALT/SGPT) Alkaline Phosphatase 151 U/L Total Protein 6.5 GM/DL Albumin 2.3 GM/DL Date/Time Procedure Status Source Growth 05/20/16 18:15 Influenza Types A,B Antigen (JONA) - Final Complete Nasal Washing NEGATIVE FOR FLU A AND B ANTIGEN.... 05/20/16 16:07 Aerobic Blood Culture - Preliminary Resulted Blood Peripheral NO GROWTH IN 1 DAY 05/20/16 16:07 Anaerobic Blood Culture - Preliminary Resulted Blood Peripheral NO GROWTH IN 1 DAY Physical Examination HEENT: Normocephalic; atraumatic; no jaundice. CHEST: Resp. shallow even. Diminished CARDIAC: RRR ABDOMEN: Soft, mild ascites, not tense, RUQ tenderness, hepatosplenomegaly; bowel sounds are present in all four quadrants. EXTREMITIES: No clubbing, cyanosis, or edema. SKIN: Multiple ecchymotic areas PAID INTERNSHIP: Lethargic and oriented times three. (Carisa Cuevas) Assessment and Plan Plan ASSESSMENT: - Fever of undetermined etiology. Pt had low grade fever during recent hospitalization. BCx, Peritoneal Cx, and Urine Cx at that time was all negative. It was thought that these may be drug related. However, she has continued to have fevers since her discharge 100-101 and also reports nausea, vomiting, RUQ pain. 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 US (05/21/16)-----> 1. No evidence of gallstones or biliary tract obstruction. 2. There is thickening of the gallbladder wall is 7 mm with a trace of fluid around the gallbladder. This can be seen with either acute or chronic cholecystitis. This would have to be correlated with patient's physical, clinical exam and laboratory values. 3. There is increased echogenicity throughout the liver characteristic of hepatocellular disease such as cirrhosis. There is recanalization of the paraumbilical vein characteristics of cirrhosis. Abdomen/Pelvis CT (05/20/16)----> 1. Cirrhosis and portal hypertension stigmata as described above. 2. Gallbladder wall thickening/edema noted and associated ascites. 3. Left adnexal cyst. Flagyl. Zosyn. Will get HIDA scan to rule out acute cholecystitis. - Alcoholic hepatitis, elevated LFTs. LFTs stable, about the same as previous hospitalization. She has been on Pentoxifylline, not a candidate for steroids with persistent fevers. - Diarrhea. Colonoscopy (05/07/16) and this revealed colitis, rectal varices, hemorrhoids, diverticulosis. Pathology revealed colonic mucosa without significant histopathologic abnormality. Will get stool studies. - Liver cirrhosis. Pt was recently hospitalized earlier this month and had MELD score 23 at that time. Has not had PT/INR during this hospitalization. 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 She quit drinking at that time. However she started drinking again about 6 months ago, 3-4 beers per day up until her hospitalization earlier this month. Hepatitis panel negative, FRED negative. AMA <20.0. ASMA negative. Alpha antitrypsin 129, Ceruloplasmin 17. AFP 2.2. - Ascites, mild, not tense. Spironolactone. Lasix - RUQ Pain. Will get HIDA scan to rule out cholecystitis - Hepatic encephalopathy. Xifaxan. - Thrombocytopenia - Esophageal varices, portal htn. EGD (05/05/16) and this revealed esophagitis , portal hypertension pathology revealed acute esophagitis with no fungal organisms. She then had a - Anemia. 9.7/29.6. PLAN: - Clear liquids - HIDA Scan - Cont. PPI - Cont. Lasix - Cont. Spironolactone - Cont. Xifaxan - Cont. Flagyl - Cont. Zosyn - Await blood cultures - Monitor CBC, PT/INR, CMP, Ammonia - Supportive care - Further recommendations to follow based on results of above - Pt seen and examined by Dr. Brito and myself and this note is written on his behalf (Carisa Cuevas) Physician Comments Seen and examined, plan as above, will follow up with you. (Mike Brito MD) Carisa Cuevas May 21, 2016 11:26 Mike Brito MD May 21, 2016 22:41
--- NOTE | 2016-05-21 11:35 | RADRPT ---
EXAM DATE/TIME: 05/21/2016 08:59 [facility] COMPARISON: CT ABDOMEN & PELVIS W/O CONTRAST, May 20, 2016, 18:40. US ABDOMEN - GALLBLADDER, April 21 010, 18:36. INDICATIONS : Right upper quadrant pain. MEDICAL HISTORY : Hypercholesterolemia. Hypertension. Inflammatory bowel disease. Tremors. Dyspnea. Ulcer. Gastroesopha geal reflux disease. Abdominal pain. Paresthesia. Ascites. Anxiety. Anemia. ETOH abuse. Cirrhosis. He patitis. SURGICAL HISTORY : section. EGD. Colonoscopy. Esophageal varicies. Blood transfusions. ENCOUNTER: Subsequent ACUITY: 2 weeks PAIN SCORE: 0/10 LOCATION: Right upper quadrant MEASUREMENTS: LIVER: 16.5 cm length COMMON DUCT: 5 mm RIGHT KIDNEY: 12.9 x 6.7 x 6.3 cm FINDINGS: LIVER: There is increased echogenicity in the liver. No dilated biliary ducts are seen. There is a trace of ascites adjacent to liver. There is recanalization of the paraumbilical vein. COMMON DUCT: No intraluminal mass or stone visualized. GALLBLADDER: The note definite gallstones. There is thickening of the gallbladder wall at 7 mm. There is a trace o f fluid around the gallbladder. PANCREAS: The visualized portions are within normal limits. RIGHT KIDNEY: No evidence of hydronephrosis, stone, or mass. CONCLUSION: 1. No evidence of gallstones or biliary tract obstruction. 2. There is thickening of the gallbladder wall is 7 mm with a trace of fluid around the gallbladder. This can be seen with either acute or chronic cholecystitis. This would have to be correlated with odilia morales's physical, clinical exam and laboratory values. 3. There is increased echogenicity throughout the liver characteristic of hepatocellular disease such as cirrhosis. There is recanalization of the paraumbilical vein characteristics of cirrhosis. Donell Bo MD on May 21, 2016 at 11:28 Board Certified Radiologist. This report was verified electronically.
--- NOTE | 2016-05-21 11:51 | EKG ---
Date Performed: 05/20/2016 Time Performed: 18:31:42 PTAGE: 50 years EKG: Sinus rhythm NORMAL ECG Since PREVIOUS TRACING , no significant change noted PREVIOUS TRACIN05/04/2016 17.04 DOCTOR: Kris Rios Interpretating Date/Time 05/21/2016 11:49:03
--- NOTE | 2016-05-21 12:53 | RADRPT ---
EXAM DATE/TIME: 05/21/2016 09:17 [facility] COMPARISON: US ABDOMEN - LOWER LIMITED, April 09, 2010, 20:28. INDICATIONS : Ascites. MEDICAL HISTORY : Hypertension. Hypercholesterolemia. Inflammatory bowel disease. Tremors. Dyspnea. Ulcer. Gastroesopha geal reflux disease. Abdominal pain. Paresthesia. Ascites. Anxiety. Anemia. ETOH abuse. Cirrhosis. He patitis. SURGICAL HISTORY : EGD. Colonoscopy. Esophageal varicies. Blood transfusions. ENCOUNTER: Subsequent ACUITY: 1 day PAIN SCORE: 0/10 LOCATION: Abdomen. AREA EVALUATED: Abdominal quadrants. FINDINGS: Imaging of the abdomen and pelvis was performed to evaluate for ascites for possible paracentesis. Th ere is only a trace of ascites around the liver. This is insufficient for drainage. CONCLUSION: Trace of fluid around the liver. Donell Bo MD on May 21, 2016 at 12:51 Board Certified Radiologist. This report was verified electronically.
--- NOTE | 2016-05-21 14:28 | PD.CONS ---
History of Present Illness Service Infectious disease Consult Requested By Dr Correia Reason for Consult Evaluate patient with fever Primary Care Physician No Primary Care Physician Diagnoses: History of Present Illness Patient seen and examined. Records reviewed. Patient is a 50-year-old female with liver cirrhosis, recently hospitalized early part of April and was discharged around May 14. At that time she had GI bleed. I saw her during that hospitalization for evaluation of low- grade fevers. I did not find any evidence of infection, and her temperatures actually improved, and she was not on any systemic antibiotics. According to the report since discharge patient reportedly was having high-grade fevers up to 103. She was having constant diarrhea which was on ongoing problem during her last admission, and she had been tested for C. difficile and came back negative. There was no nausea or vomiting. She was complaining of abdominal pain, and denies any urinary complaints. Patient stated that she had gained quite a bit of weight recently. She has had some coughing but no sputum production. Denies any chest pain or any shortness of breath. She denies any body aches or muscle aches or any joint pains. Patient has been febrile up to 103 since admission here in the hospital. She's had imaging studies and the CT of the abdomen and pelvis did not show any abscess, it did show some trace ascites. Chest x-ray showing some atelectasis. She's had blood cultures done and those are negative so far. Urinalysis is unremarkable. Infectious disease consultation has been requested to evaluate the patient. Review of Systems Constitutional: COMPLAINS OF: Fever, Chills Eyes: DENIES: Eye pain Ears, nose, mouth, throat: DENIES: Nasal discharge, Oral lesions, Throat pain, Ear Pain, Sinus Pain, Odynophagia Respiratory: COMPLAINS OF: Cough, DENIES: Sputum production, Shortness of breath Cardiovascular: DENIES: Chest pain, Palpitations Gastrointestinal: COMPLAINS OF: Abdominal pain, Diarrhea, DENIES: Nausea, Vomiting, Difficulty Swallowing Genitourinary: DENIES: Urinary incontinence, Dysuria Musculoskeletal: DENIES: Joint pain, Muscle aches Integumentary: DENIES: Rash Neurologic: DENIES: Headache Psychiatric: DENIES: Confusion Past Family Social History Allergies: Coded Allergies: Levofloxacin (Verified Allergy, Severe, Rash, 05/20/16) *MDRO Multi-Drug Resistant Organism (Verified Adverse Reaction, Unknown, MRSA, 05/21/16) MRSA (sputum) - 04/12/10 MRSA (wound) - 12/09/07 Past Medical History Liver cirrhosis Esophageal varices, previous banding Portal hypertension Hypertension History of MRSA pneumonia Anemia Thrombocytopenia secondary to cirrhosis History of acalculous cholecystitis, has had tube cholecystostomy done in the past Past Surgical History Wiring of her jaw Previous tube cholecystostomy placement Esophageal variceal banding Abdominal paracenteses Endoscopies Active Ordered Medications Lasix Ativan Magnesium Protonix Trental Mephyton Zosyn Potassium Rifaximin Aldactone Thiamine Social History History of significant alcohol abuse, was dry for a while, relapsed about 6 months ago No smoking No illicit drug use Physical Exam Vital Signs Vital Signs Date Time Temp Pulse Resp B/P Pulse Ox O2 Delivery O2 Flow Rate FiO2 05/21/16 12:00 97.9 05/21/16 12:00 98.5 82 18 100/55 99 05/21/16 08:00 118 05/21/16 08:00 97.8 118 18 100/58 95 05/21/16 08:00 97.5 05/21/16 04:07 98.0 127 18 100/66 96 05/21/16 03:49 100.2 132 26 96 05/21/16 01:55 150 05/21/16 01:52 125 05/21/16 01:30 102.9 132 24 109/79 05/20/16 23:20 100.8 96 20 140/67 97 05/20/16 19:25 92 24 126/66 96 Room Air 05/20/16 17:18 99.6 91 27 139/83 100 Room Air 05/20/16 15:17 99.4 91 14 128/74 100 Room Air Physical Exam GENERAL: This is a well-nourished, well-developed female, awake and alert, in no apparent distress. SKIN: Warm and dry. No generalized rash, no ecchymosis, no embolic lesions HEAD: Atraumatic. Normocephalic. No temporal or scalp tenderness. Has erythema on whole face, and has perioorbital edema especially in the lower lids EYES: Pupils equal round and reactive. No petechia or hemorrhage. Extraocular motions intact. Has scleral icterus. No injection or drainage. ENT: Nose without bleeding, or purulent drainage. Moist oral mucosa. Throat without erythema, or exudate. Uvula midline. Airway patent. NECK: Trachea midline. No JVD or lymphadenopathy. Supple, nontender, no meningeal signs. CARDIOVASCULAR: Regular rate and rhythm without gallops, or rubs. Has a soft murmur on the left sternal border. RESPIRATORY: Clear to auscultation. Breath sounds equal bilaterally. No wheezes , rales, or rhonchi. His breath sounds at the bases. GASTROINTESTINAL: Abdomen is protuberant, and distended, with diffuse mild tenderness, no guarding, or rebound. There is a pink discoloration on anterior abdominal wall, with some induration of the skin. MUSCULOSKELETAL: Extremities without clubbing, cyanosis. Has mild pedal edema. No joint tenderness, effusion, or edema noted. No calf tenderness. Negative Homans sign bilaterally. NEUROLOGICAL: Awake and alert. Cranial nerves II through XII intact. Motor and sensory grossly within normal limits. Five out of 5 muscle strength in all muscle groups. Normal speech. PSYCH: Calm and cooperative LINE: PIV with no evidence of infection Laboratory Laboratory Tests Test 05/20/16 05/20/16 05/20/16 05/21/16 16:07 16:39 18:35 00:05 White Blood Count 3.9 Red Blood Count 2.99 Hemoglobin 9.6 Hematocrit 29.4 Mean Corpuscular Volume 98.2 Mean Corpuscular Hemoglobin 32.2 Mean Corpuscular Hemoglobin 32.7 Concent Red Cell Distribution Width 24.3 Platelet Count 52 Mean Platelet Volume 10.9 Neutrophils (%) (Auto) 62.4 Lymphocytes (%) (Auto) 21.7 Monocytes (%) (Auto) 13.9 Eosinophils (%) (Auto) 1.6 Basophils (%) (Auto) 0.4 Neutrophils # (Auto) 2.4 Lymphocytes # (Auto) 0.8 Monocytes # (Auto) 0.5 Eosinophils # (Auto) 0.1 Basophils # (Auto) 0.0 CBC Comment AUTO DIFF Differential Comment AUTO DIFF CONFIRMED Sodium Level 133 Potassium Level 4.0 Chloride Level 103 Carbon Dioxide Level 21.6 Anion Gap 8 Blood Urea Nitrogen 5 Creatinine 0.82 Estimat Glomerular Filtration 90 Rate Random Glucose 147 Lactic Acid Level 2.5 1.3 Calcium Level 8.0 Total Bilirubin 4.9 Aspartate Amino Transf 52 (AST/SGOT) Alanine Aminotransferase 28 (ALT/SGPT) Alkaline Phosphatase 190 Ammonia 17 Total Protein 7.1 Albumin 2.6 Urine Color YELLOW Urine Turbidity CLEAR Urine pH 6.5 Urine Specific [place] 1.011 Urine Protein NEG Urine Glucose (UA) NEG Urine Ketones NEG Urine Occult Blood SMALL Urine Nitrite NEG Urine Bilirubin SMALL Urine Urobilinogen LESS THAN 2.0 Urine Leukocyte Esterase SMALL Urine RBC 8 Urine WBC 2 Urine Squamous Epithelial 4 Cells Urine Hyaline Casts 1 Microscopic Urinalysis Comment CULT NOT INDICATED Stool C. difficile Toxin (PCR) NEGATIVE Stl C. difficile Toxin PRESUMPTIVE Epiderm 027 NEGATIVE Test 05/21/16 07:39 White Blood Count 6.6 Red Blood Count 3.06 Hemoglobin 9.7 Hematocrit 29.6 Mean Corpuscular Volume 96.7 Mean Corpuscular Hemoglobin 31.8 Mean Corpuscular Hemoglobin 32.9 Concent Red Cell Distribution Width 24.0 Platelet Count 44 Mean Platelet Volume 10.8 Neutrophils (%) (Auto) 83.4 Lymphocytes (%) (Auto) 5.3 Monocytes (%) (Auto) 10.5 Eosinophils (%) (Auto) 0.2 Basophils (%) (Auto) 0.6 Neutrophils # (Auto) 5.5 Lymphocytes # (Auto) 0.3 Monocytes # (Auto) 0.7 Eosinophils # (Auto) 0.0 Basophils # (Auto) 0.0 CBC Comment AUTO DIFF Differential Comment AUTO DIFF CONFIRMED Acanthocytes 1+ Sodium Level 133 Potassium Level 3.9 Chloride Level 103 Carbon Dioxide Level 19.2 Anion Gap 11 Blood Urea Nitrogen 9 Creatinine 0.75 Estimat Glomerular Filtration 99 Rate Random Glucose 106 Calcium Level 7.6 Magnesium Level 1.3 Total Bilirubin 5.7 Aspartate Amino Transf 56 (AST/SGOT) Alanine Aminotransferase 23 (ALT/SGPT) Alkaline Phosphatase 151 Total Protein 6.5 Albumin 2.3 Date/Time Procedure Status Source Growth 05/20/16 18:15 Influenza Types A,B Antigen (JONA) - Final Complete Nasal Washing NEGATIVE FOR FLU A AND B ANTIGEN.... 05/20/16 16:07 Aerobic Blood Culture - Preliminary Resulted Blood Peripheral NO GROWTH IN 1 DAY 05/20/16 16:07 Anaerobic Blood Culture - Preliminary Resulted Blood Peripheral NO GROWTH IN 1 DAY Result Diagram: 05/21/16 0739 05/21/16 0739 Imaging RADIOLOGY STUDIES/FILMS REVIEWED Gall Bladder Ultrasound 05/21/16 0000 Signed Impressions: Service Date/Time: April 08:59 - CONCLUSION: 1. No evidence of gallstones or biliary tract obstruction. 2. There is thickening of the gallbladder wall is 7 mm with a trace of fluid around the gallbladder. This can be seen with either acute or chronic cholecystitis. This would have to be correlated with patient's physical, clinical exam and laboratory values. 3. There is increased echogenicity throughout the liver characteristic of hepatocellular disease such as cirrhosis. There is recanalization of the paraumbilical vein characteristics of cirrhosis. Donell Bo MD Abdomen Ultrasound 05/21/16 0000 Signed Impressions: Service Date/Time: April 09:17 - CONCLUSION: Trace of fluid around the liver. Donell Bo MD Chest X-Ray 05/20/16 0000 Signed Impressions: Service Date/Time: Friday, May 20, 2016 18:04 - CONCLUSION: Mild interstitial prominence. Lingular subsegmental atelectasis. Andrew Rowe MD Abdomen/Pelvis CT 05/20/16 0000 Signed Impressions: Service Date/Time: Friday, May 20, 2016 18:40 - CONCLUSION: 1. Cirrhosis and portal hypertension stigmata as described above. 2. Gallbladder wall thickening/edema noted and associated ascites. 3. Left adnexal cyst. Andrew Rowe MD Assessment and Plan Assessment and Plan IMPRESSION Febrile illness, source? - ?intraabdominal - has atelectasis - UA ok - has diarrhea, previous C diff negative, ?colitis Liver cirrhosis, previous Hx EOH abuse Pancytopenia RECOMMENDATION Continue Zosyn PO Flagyl Lactinex Repeat BC with next fever Follow C/S Follow counts Monitor progress I will follow along with you Thank you for this consultation Discussed Condition With D/W Leslee Denson MD May 21, 2016 14:28
--- NOTE | 2016-05-21 16:20 | HHI.PR ---
Subjective Remarks patient c/o abdominal - ruq pain denies nausea or vomiting fever with a T max of 102.8 tachycardia improving Objective Vitals Vital Signs Date Time Temp Pulse Resp B/P Pulse Ox O2 Delivery O2 Flow Rate FiO2 05/21/16 12:00 97.9 05/21/16 12:00 98.5 82 18 100/55 99 05/21/16 08:00 118 05/21/16 08:00 97.8 118 18 100/58 95 05/21/16 08:00 97.5 05/21/16 04:07 98.0 127 18 100/66 96 05/21/16 03:49 100.2 132 26 96 05/21/16 01:55 150 05/21/16 01:52 125 05/21/16 01:30 102.9 132 24 109/79 05/20/16 23:20 100.8 96 20 140/67 97 05/20/16 19:25 92 24 126/66 96 Room Air 05/20/16 17:18 99.6 91 27 139/83 100 Room Air Result Diagram: 05/21/16 0739 05/21/16 0739 Imaging Last Impressions Gall Bladder Ultrasound 05/21/16 0000 Signed Impressions: Service Date/Time: April 08:59 - CONCLUSION: 1. No evidence of gallstones or biliary tract obstruction. 2. There is thickening of the gallbladder wall is 7 mm with a trace of fluid around the gallbladder. This can be seen with either acute or chronic cholecystitis. This would have to be correlated with patient's physical, clinical exam and laboratory values. 3. There is increased echogenicity throughout the liver characteristic of hepatocellular disease such as cirrhosis. There is recanalization of the paraumbilical vein characteristics of cirrhosis. Donell Bo MD Abdomen Ultrasound 05/21/16 0000 Signed Impressions: Service Date/Time: April 09:17 - CONCLUSION: Trace of fluid around the liver. Donell Bo MD Chest X-Ray 05/20/16 0000 Signed Impressions: Service Date/Time: Friday, May 20, 2016 18:04 - CONCLUSION: Mild interstitial prominence. Lingular subsegmental atelectasis. Andrew Rowe MD Abdomen/Pelvis CT 05/20/16 0000 Signed Impressions: Service Date/Time: Friday, May 20, 2016 18:40 - CONCLUSION: 1. Cirrhosis and portal hypertension stigmata as described above. 2. Gallbladder wall thickening/edema noted and associated ascites. 3. Left adnexal cyst. Andrew Rowe MD Objective Remarks GENERAL: This is a chronically ill patient, in moderate distress from fever and chills. SKIN: Superficial ecchymosis. Spider angiomata. HEAD: Atraumatic. Normocephalic. No temporal or scalp tenderness. EYES: Scleral icterus present. No injection or drainage. ENT: Nose without bleeding, purulent drainage or septal hematoma. Airway patent. NECK: Trachea midline. No JVD CARDIOVASCULAR: S1S2, regular rhythm without murmurs, gallops, or rubs. RESPIRATORY: Bilaterally decreased air entry. GASTROINTESTINAL: Abdomen distended, tenderness diffusely with more so on the right upper quadrant. Bowel sounds presents. No rebound. No guarding. MUSCULOSKELETAL: Extremities without clubbing, cyanosis. Mild bilateral lower extremity 1+ pitting edema.. No calf tenderness. NEUROLOGICAL: Awake and alert.Motor and sensory grossly within normal limits. Normal speech. Medications and IVs Current Medications Medications (Trade) Dose Ordered Sig/Doc Route Start Time Stop Time Status Last Admin (Lasix) 40 mg DAILY PO 05/21/16 09:00 05/21/16 10:05 (Protonix) 40 mg DAILY PO 05/21/16 09:00 05/21/16 10:04 (TRENtal SR) 400 mg Q8H PO 05/20/16 22:00 05/21/16 13:53 (Mephyton) 5 mg DAILY PO 05/21/16 09:00 05/21/16 10:05 (KCl) 20 meq DAILY PO 05/21/16 09:00 05/21/16 10:05 (K-Phos Neutral) 250 mg Q6HR PO 05/21/16 00:00 05/21/16 16:56 (Xifaxan) 550 mg BID PO 05/20/16 21:00 05/21/16 10:05 (Aldactone) 100 mg DAILY PO 05/21/16 09:00 05/21/16 10:05 (Vitamin B1) 100 mg DAILY PO 05/21/16 09:00 12/29/16 10:05 (Narcan Inj) 0.4 mg UNSCH PRN IV 05/20/16 20:15 Magnesium Oxide 400 mg 400 mg DAILY PO 05/21/16 09:00 05/21/16 10:05 (Zosyn 4.5 Gm Premix) 100 ml @ 200 mls/hr Q6H IV 05/20/16 23:00 05/21/16 16:56 (NS Flush) 2 ml UNSCH PRN IV FLUSH 05/21/16 00:45 05/21/16 01:40 (NS Flush) 2 ml BID IV FLUSH 05/21/16 09:00 05/21/16 10:05 (Ativan) 1 mg Q4H PRN PO 05/21/16 00:45 (Ativan Inj) 1 mg Q4H PRN IV PUSH 05/21/16 00:45 05/21/16 00:58 (Ativan) 2 mg Q2H PRN PO 05/21/16 00:45 (Ativan Inj) 2 mg Q2H PRN IV PUSH 05/21/16 00:45 (Ativan Inj) 2 mg Q1H PRN IV PUSH 05/21/16 00:45 (Ativan Inj) 2 mg Q15M PRN IV PUSH 05/21/16 00:45 (Flagyl) 500 mg Q8HR PO 05/21/16 22:00 Lactobacillus Acidophilus 1 tab 1 tab TID PO 05/21/16 18:00 05/21/16 16:55 (Magnesium Sulfate 1 Gm Premix) 100 ml @ 100 mls/hr Q1H IV 05/21/16 16:30 05/21/16 18:29 A/P Problem List: (1) Sepsis ICD Code: A41.9 Status: Acute Plan: Patient admitted to the medical floor Continue IV broad spectrum antibiotics. ua negative, x-ray showed mild interstitial prominence, lingular subsegmental atelectasis ? intraabdominal source - continue IV Zosyn and po Flagyl. Id consulted - appreciated All cultures negative 1 (2) Abdominal pain ICD Code: R10.9 Status: Acute Plan: Will rx IV Toradol - avoid morphine, demerol or opioids since patient will have HIDA tomorrow (3) Ascites ICD Code: R18.8 Status: Acute Plan: abdomen soft, fu GI recommendations Continue diuretics - lasix and spironolactone. (4) Liver cirrhosis ICD Code: K74.60 Status: Acute Plan: Liver cirrhosis. Pt was recently hospitalized earlier this month and had MELD score 23 at that time. Has not had PT/INR during this hospitalization. 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 She quit drinking at that time. However she started drinking again about 6 months ago, 3-4 beers per day up until her hospitalization earlier this month. Hepatitis panel negative, FRED negative. AMA <20.0. ASMA negative. Alpha antitrypsin 129, Ceruloplasmin 17. AFP 2.2. - Ascites, mild, not tense. Spironolactone. Lasix (5) Leukopenia ICD Code: D72.819 Status: Resolved Plan: Likely secondary to sepsis. Now resolved. Continue to monitor CBC with differential. (6) Thrombocytopenia ICD Code: D69.6 Status: Acute Plan: Cytopenia which is chronic. Likely secondary to liver disease. Platelets count trending down (7) Hyponatremia ICD Code: E87.1 Status: Chronic Plan: Due to hypovolemic hyponatremia. Sodium stable at 133. (8) Hypomagnesemia ICD Code: E83.42 Status: Acute Plan: Likely secondary to decreased oral intake. Repeat with IV magnesium sulfate. Problem Qualifiers (1) Sepsis: Qualified Code: A41.9 - Sepsis, due to unspecified organism (2) Abdominal pain: Qualified Code: R10.11 - Right upper quadrant abdominal pain (3) Ascites: Qualified Code: K70.31 - Ascites due to alcoholic cirrhosis (4) Liver cirrhosis: Qualified Code: K70.31 - Alcoholic cirrhosis of liver with ascites Clark Bernabe MD May 21, 2016 16:20
[2016-05-21] MEDS: LACTOBACILLUS ACIDOPHILUS TAB PO SCH (16:55)
[2016-05-21] MEDS: MAGNESIUM SULFATE 1 GM PREMIX 100 ML IV SCH ×2 (17:56→18:41)
[2016-05-21] MEDS: metroNIDAZOLE 500 MG TAB PO SCH (21:20)
[2016-05-21 21:34] LABS: INTERNATIONAL NORMALIZED RATIO 1.9 RATIO; PROTHROMBIN TIME - PATIENT 21.1 SEC (9.8-11.6)
[2016-05-21] MEDS: MORPHINE SULFATE 4 MG/ML INJ IV PUSH PRN (22:50)
[2016-05-22] VITALS (8 sets, daily range): BP systolic 112–129; BP diastolic 60–68; PULSE 88–104; RESP 20–28; TEMP 98.7–102.5; O2SAT 95–100
[2016-05-22] MEDS: PIPERACIL-TAZO 4.5 GM PREMIX 100 ML IV SCH ×4 (05:30→22:57)
[2016-05-22] MEDS: metroNIDAZOLE 500 MG TAB PO SCH ×3 (05:30→22:56)
[2016-05-22] MEDS: POTASSIUM PHOSPHATE/SODIUM PHOSPHATE 250 MG TAB PO SCH ×4 (05:30→22:56)
[2016-05-22] MEDS: PENTOXIFYLLINE 400 MG CONTROLLED RELEASE TAB PO SCH ×3 (05:31→22:56)
[2016-05-22 06:41] LABS: HEMATOCRIT 27.3 % (35.0-46.0); MEAN CELL VOLUME 96.1 FL (80.0-100.0); MEAN CORPUSCULAR HEMOGLOBIN 33.1 PG (27.0-34.0); MEAN CORPUSCULAR HGB CONC 34.5 % (32.0-36.0); PLATELET COUNT 48 TH/MM3 (150-450); RED BLOOD COUNT 2.84 MIL/MM3 (4.00-5.30); WHITE BLOOD COUNT 5.7 TH/MM3 (4.0-11.0)
[2016-05-22 07:02] LABS: ALKALINE PHOSPHATASE 136 U/L (45-117); ALT (GPT) 24 U/L (10-53); ANION GAP 11 MEQ/L (5-15); AST (GOT) 59 U/L (15-37); BICARBONATE 20.4 MEQ/L (21.0-32.0); BLOOD UREA NITROGEN 7 MG/DL (7-18); CHLORIDE 100 MEQ/L (98-107); GLOMERULAR FILTRATION RATE 101 ML/MIN (>89); POTASSIUM 4.4 MEQ/L (3.5-5.1); SODIUM (NA) 131 MEQ/L (136-145); TOTAL BILIRUBIN ADULT 6.7 MG/DL (0.2-1.0)
[2016-05-22 08:00] LABS: HEMO FLAGS AUTO DIFF
[2016-05-22 08:32] LABS: BANDS 22 % (0-6); POLYS (SEG NEUTROPHILS) 65 % (16-70); WBC DIFF SAMPLE 100
[2016-05-22 08:34] LABS: ACANTHOCYTES 1+ (NORMAL); PLATELET ESTIMATE SMEAR LOW (NORMAL); PLATELET MORPHOLOGY ENLARGED (NORMAL); SCAN/DIFF FINAL DIFF MANUAL
[2016-05-22] MEDS: SODIUM CHLORIDE 0.9% FLUSH 5 ML FLUSH IV FLUSH SCH ×2 (10:22→21:00)
[2016-05-22] MEDS: THIAMINE HCL 100 MG TAB PO SCH (10:23)
[2016-05-22] MEDS: RIFAXIMIN 550 MG TAB PO SCH ×2 (10:23→22:56)
[2016-05-22] MEDS: MAGNESIUM OXIDE 400 MG TAB PO SCH (10:23)
[2016-05-22] MEDS: LACTOBACILLUS ACIDOPHILUS TAB PO SCH ×3 (10:23→17:01)
[2016-05-22] MEDS: SPIRONOLACTONE 100 MG TAB PO SCH (10:23)
[2016-05-22] MEDS: PHYTONADIONE 5 MG TAB PO SCH ×2 (10:23→12:31)
[2016-05-22] MEDS: POTASSIUM CHLORIDE 20 MEQ CONTROLLED RELEASE TAB PO SCH (10:23)
[2016-05-22] MEDS: FUROSEMIDE 40 MG TAB PO SCH (10:23)
[2016-05-22] MEDS: PANTOPRAZOLE SOD 40 MG DELAYED RELEASE TAB PO SCH (10:23)
--- NOTE | 2016-05-22 10:34 | RADRPT ---
EXAM DATE/TIME: 05/22/2016 09:30 [facility] COMPARISON: No previous studies available for comparison. INDICATIONS : Abdominal pain with nausea and vomiting. DOSE: 4.3 mCi Tc99m Mebrofenin IV MEDICAL HISTORY : Cirrhosis. Gastroesophageal reflux disease. Hypertension. Asites. SURGICAL HISTORY : Colonoscopy. ENCOUNTER: Initial ACUITY: 3 days PAIN SCALE: 6/10 LOCATION: Right upper quadrant TECHNIQUE: Following the intravenous administration of radiotracer, dynamic sequential images were performed wit h continuous acquisition. Patient refused the scan after the first 5 minutes. FINDINGS: HEPATIC KINETICS: NA BILIARY CLEARANCE: NA GALLBLADDER: NA BILIARY ENTRIC REFLUX: NA CONCLUSION: Patient refused the scan after the first 5 minutes. Nondiagnostic HIDA scan. Donell Bo MD on May 22, 2016 at 10:28 Board Certified Radiologist. This report was verified electronically.
[2016-05-22] MEDS: LORazepam 2 MG/ML VIAL IV PUSH PRN (12:31)
--- NOTE | 2016-05-22 13:41 | HHI.IDPN ---
Subjective Subjective Remarks Notes reviewed Febrile WBC better ESR 55 CRP only 1.6 (+) LBM Hida scan not completed Cultures negative so far Antibiotics Zosyn Flagyl Lines PIV Past Medical History Liver cirrhosis Esophageal varices, previous banding Portal hypertension Hypertension History of MRSA pneumonia Anemia Thrombocytopenia secondary to cirrhosis History of acalculous cholecystitis, has had tube cholecystostomy done in the past Past Surgical History Wiring of her jaw Previous tube cholecystostomy placement Esophageal variceal banding Abdominal paracenteses Endoscopies Allergies: Coded Allergies: Levofloxacin (Verified Allergy, Severe, Rash, 05/20/16) *MDRO Multi-Drug Resistant Organism (Verified Adverse Reaction, Unknown, MRSA, 05/21/16) MRSA (sputum) - 04/12/10 MRSA (wound) - 12/09/07 Objective . Vital Signs Date Time Temp Pulse Resp B/P Pulse Ox O2 Delivery O2 Flow Rate FiO2 05/22/16 12:00 98.7 91 24 112/61 98 05/22/16 08:00 98.9 98 28 123/63 100 05/22/16 04:00 100.3 104 22 129/60 98 05/22/16 00:00 102.5 95 22 122/68 96 05/21/16 20:00 102.7 102 20 121/58 97 05/21/16 20:00 103 05/21/16 16:00 99.0 92 20 100/59 99 05/21/16 05/21/16 05/22/16 15:00 23:00 07:00 Intake Total 480 ml 400 ml 0 ml Output Total 1100 ml 200 ml 150 ml Balance -620 ml 200 ml -150 ml Intake Oral 480 ml 400 ml 0 ml Output Urine Total 500 ml 200 ml 150 ml Stool Total 600 ml # Voids 1 # Bowel Movements 2 1 . Laboratory Tests Test 05/20/16 05/21/16 05/22/16 16:07 07:39 06:12 White Blood Count 3.9 TH/MM3 6.6 TH/MM3 5.7 TH/MM3 Red Blood Count 2.99 MIL/MM3 3.06 MIL/MM3 2.84 MIL/MM3 Hemoglobin 9.6 GM/DL 9.7 GM/DL 9.4 GM/DL Hematocrit 29.4 % 29.6 % 27.3 % Mean Corpuscular Volume 98.2 FL 96.7 FL 96.1 FL Mean Corpuscular Hemoglobin 32.2 PG 31.8 PG 33.1 PG Mean Corpuscular Hemoglobin 32.7 % 32.9 % 34.5 % Concent Red Cell Distribution Width 24.3 % 24.0 % 23.0 % Platelet Count 52 TH/MM3 44 TH/MM3 48 TH/MM3 Mean Platelet Volume 10.9 FL 10.8 FL 12.0 FL Neutrophils (%) (Auto) 62.4 % 83.4 % % Lymphocytes (%) (Auto) 21.7 % 5.3 % % Monocytes (%) (Auto) 13.9 % 10.5 % % Eosinophils (%) (Auto) 1.6 % 0.2 % % Basophils (%) (Auto) 0.4 % 0.6 % % Neutrophils # (Auto) 2.4 TH/MM3 5.5 TH/MM3 TH/MM3 Lymphocytes # (Auto) 0.8 TH/MM3 0.3 TH/MM3 TH/MM3 Monocytes # (Auto) 0.5 TH/MM3 0.7 TH/MM3 TH/MM3 Eosinophils # (Auto) 0.1 TH/MM3 0.0 TH/MM3 TH/MM3 Basophils # (Auto) 0.0 TH/MM3 0.0 TH/MM3 TH/MM3 CBC Comment AUTO DIFF AUTO DIFF AUTO DIFF Differential Comment AUTO DIFF AUTO DIFF FINAL DIFF CONFIRMED CONFIRMED MANUAL Acanthocytes 1+ 1+ Erythrocyte Sedimentation Rate 55 mm/hr Differential Total Cells 100 Counted Neutrophils % (Manual) 65 % Band Neutrophils % 22 % Lymphocytes % 7 % Monocytes % 6 % Neutrophils # (Manual) 5.0 TH/MM3 Platelet Estimate LOW Platelet Morphology Comment ENLARGED Laboratory Tests Test 05/20/16 05/20/16 05/21/16 05/22/16 16:07 18:35 07:39 06:12 Sodium Level 133 MEQ/L 133 MEQ/L 131 MEQ/L Potassium Level 4.0 MEQ/L 3.9 MEQ/L 4.4 MEQ/L Chloride Level 103 MEQ/L 103 MEQ/L 100 MEQ/L Carbon Dioxide Level 21.6 MEQ/L 19.2 MEQ/L 20.4 MEQ/L Anion Gap 8 MEQ/L 11 MEQ/L 11 MEQ/L Blood Urea Nitrogen 5 MG/DL 9 MG/DL 7 MG/DL Creatinine 0.82 MG/DL 0.75 MG/DL 0.74 MG/DL Estimat Glomerular Filtration 90 ML/MIN 99 ML/MIN 101 ML/MIN Rate Random Glucose 147 MG/DL 106 MG/DL 106 MG/DL Lactic Acid Level 2.5 mmol/L 1.3 mmol/L Calcium Level 8.0 MG/DL 7.6 MG/DL 7.7 MG/DL Total Bilirubin 4.9 MG/DL 5.7 MG/DL 6.7 MG/DL Aspartate Amino Transf 52 U/L 56 U/L 59 U/L (AST/SGOT) Alanine Aminotransferase 28 U/L 23 U/L 24 U/L (ALT/SGPT) Alkaline Phosphatase 190 U/L 151 U/L 136 U/L Ammonia 17 MCMOL/L 30 MCMOL/L Total Protein 7.1 GM/DL 6.5 GM/DL 6.9 GM/DL Albumin 2.6 GM/DL 2.3 GM/DL 2.3 GM/DL Magnesium Level 1.3 MG/DL C-Reactive Protein 1.60 MG/DL Microbiology Date/Time Procedure Status Source Growth 05/20/16 16:07 Aerobic Blood Culture - Preliminary Resulted Blood Peripheral NO GROWTH IN 2 DAYS 05/20/16 16:07 Anaerobic Blood Culture - Preliminary Resulted Blood Peripheral NO GROWTH IN 2 DAYS 05/20/16 16:07 Aerobic Blood Culture - Preliminary Resulted Blood Peripheral NO GROWTH IN 2 DAYS 05/20/16 16:07 Anaerobic Blood Culture - Preliminary Resulted Blood Peripheral NO GROWTH IN 2 DAYS 05/20/16 18:15 Influenza Types A,B Antigen (JONA) - Final Complete Nasal Washing NEGATIVE FOR FLU A AND B ANTIGEN.... 05/21/16 21:00 Aerobic Blood Culture - Preliminary Resulted Blood Peripheral NO GROWTH IN 1 DAY 05/21/16 21:00 Anaerobic Blood Culture - Preliminary Resulted Blood Peripheral NO GROWTH IN 1 DAY 05/21/16 21:05 Aerobic Blood Culture - Preliminary Resulted Blood Peripheral NO GROWTH IN 1 DAY 05/21/16 21:05 Anaerobic Blood Culture - Preliminary Resulted Blood Peripheral NO GROWTH IN 1 DAY 05/21/16 22:30 Cryptosporidium Exam Resulted Stool Stool Pending 05/21/16 22:30 Stool Pus (JONA) - Final Resulted Stool Stool 05/21/16 22:30 Giardia Antigen (JONA) Resulted Stool Stool Pending Imaging Hepatobiliary Scan Nuclear Medicine 05/22/16 0000 Signed Impressions: Service Date/Time: Sunday, May 22, 2016 09:30 - CONCLUSION: Patient refused the scan after the first 5 minutes. Nondiagnostic HIDA scan. Donell J. Siragusa, MD Gall Bladder Ultrasound 05/21/16 0000 Signed Impressions: Service Date/Time: April 08:59 - CONCLUSION: 1. No evidence of gallstones or biliary tract obstruction. 2. There is thickening of the gallbladder wall is 7 mm with a trace of fluid around the gallbladder. This can be seen with either acute or chronic cholecystitis. This would have to be correlated with patient's physical, clinical exam and laboratory values. 3. There is increased echogenicity throughout the liver characteristic of hepatocellular disease such as cirrhosis. There is recanalization of the paraumbilical vein characteristics of cirrhosis. Donell Bo MD Abdomen Ultrasound 05/21/16 0000 Signed Impressions: Service Date/Time: April 09:17 - CONCLUSION: Trace of fluid around the liver. Donell Bo MD Chest X-Ray 05/20/16 0000 Signed Impressions: Service Date/Time: Friday, May 20, 2016 18:04 - CONCLUSION: Mild interstitial prominence. Lingular subsegmental atelectasis. Andrew Rowe MD Abdomen/Pelvis CT 05/20/16 0000 Signed Impressions: Service Date/Time: Friday, May 20, 2016 18:40 - CONCLUSION: 1. Cirrhosis and portal hypertension stigmata as described above. 2. Gallbladder wall thickening/edema noted and associated ascites. 3. Left adnexal cyst. Andrew Rowe MD Physical Exam GENERAL: awake and alert, in no apparent distress. SKIN: Warm and dry. No generalized rash, no ecchymosis, no embolic lesions HEAD: Atraumatic. Normocephalic. No temporal or scalp tenderness. Has erythema on whole face, and has perioorbital edema especially in the lower lids EYES: Pupils equal round and reactive. No petechia or hemorrhage. Has scleral icterus. No injection or drainage. ENT: Nose without bleeding, or purulent drainage. Moist oral mucosa. Throat without erythema, or exudate. Uvula midline. Airway patent. NECK: Trachea midline. No JVD or lymphadenopathy. Supple, nontender, no meningeal signs. CARDIOVASCULAR: Regular rate and rhythm without gallops, or rubs. Has a soft murmur on the left sternal border. RESPIRATORY: Clear to auscultation. Breath sounds equal bilaterally. No wheezes , rales, or rhonchi. His breath sounds at the bases. GASTROINTESTINAL: Abdomen is protuberant, and distended, with diffuse mild tenderness, no guarding, or rebound. There is a pink discoloration on anterior abdominal wall, with some induration of the skin. MUSCULOSKELETAL: Extremities without clubbing, cyanosis. Has mild pedal edema. No joint tenderness, effusion, or edema noted. No calf tenderness. Negative Homans sign bilaterally. NEUROLOGICAL: NOn-focal PSYCH: Calm and cooperative LINE: PIV with no evidence of infection Assessment & Plan Remarks IMPRESSION Febrile illness, source? - ?intraabdominal - has atelectasis - UA ok - has diarrhea, previous C diff negative, ?colitis - no obvious source Liver cirrhosis, previous Hx EOH abuse Pancytopenia RECOMMENDATION Continue Zosyn Continue PO Flagyl Lactinex FRED, RF Gallium scan for FUO workup Follow C/S Monitor progress Leslee Jansen MD May 22, 2016 13:41
[2016-05-22 15:25] LABS: RHEUMATOID FACTOR TRIGGER 15.5 IU/ML (0.0-14.9)
--- NOTE | 2016-05-22 16:38 | HHI.HCPN ---
Reason for visit a. To assist with evaluation and management of symptoms including: Encephalopathy, dyspnea b. To assist medical decision maker(s) with: better understanding of current medical conditions; weighing benefits/burdens of medical treatment options; making medical treatment decisions. Subjective/Interval History Patient seen today to follow-up on comfort, goals. Stable, uneventful night. No significant changes in laboratory values sodium remains low. LFTs not significantly changed. Additional stool culture pending. Blood cultures from 05/21 with no growth. Patient continues to have fever, MAXIMUM TEMPERATURE today 102.7. She remains on room air with no respiratory distress reported. Was ordered for HIDA scan by GI to further evaluate gallbladder, also ordered for WBC gallium scan by ID. patient went for HIDA scan earlier this morning and testing was stopped 5 minutes in per patient refusal to continue. Patient seen in room no family or visitors present. She is sleeping though arouses to my exam is awake and for the most part oriented and appropriate. She tells me that she could not finish testing earlier this morning because she is scared of the machine and also because she is constantly having a bowel movement and she cannot lay still long enough without needing to have a bowel movement. Explore if she had something for anxiety if that would possibly help her complete exam--she tells me she is not sure but she doesn't think anxiety medicine will help her bowel movements. She wants to comply with medical treatments but again indicates that she cannot complete that test. She indicates she is feeling about the same today; no better or no worse still having frequent bowel movements and feeling chilled with fever. She asks for another blanket, notified nursing. Denies dyspnea. Denies nausea. Endorses fair appetite she has been eating clear liquids today. Says her children have not been yet today her son stayed with her overnight here. Review with her my conversation with her family yesterday she slept through most of it. She is in agreement that she wants to try to get better and help her liver recover however she indicates that she cannot "keep going " having bowel movements with the frequency that she is. Following exam call to daughter , SHUKRI left. ----daughter later called back, provided update on current conditions, incomplete scans today, current tx. all questions answered . Advance Directives Living Will: Never completed Health Care Surrogate: Never completed Durable Power of [employer] Applications Developer: Never completed Objective Vital Signs Date Time Temp Pulse Resp B/P Pulse Ox O2 Delivery O2 Flow Rate FiO2 05/22/16 12:00 98.7 91 24 112/61 98 05/22/16 08:00 98.9 98 28 123/63 100 05/22/16 04:00 100.3 104 22 129/60 98 05/22/16 00:00 102.5 95 22 122/68 96 05/21/16 20:00 102.7 102 20 121/58 97 05/21/16 20:00 103 Intake & Output 05/22/16 05/22/16 06:59 18:59 Intake Total 400 ml 100 ml Output Total 350 ml Balance 50 ml 100 ml Intake Oral 400 ml 100 ml Output Urine Total 350 ml # Voids 1 2 # Bowel Movements 3 2 Physical Exam CONSTITUTIONAL/GENERAL: Jaundiced, lethargic, chronically ill-appearing patient.. TUBES/LINES/DRAINS: Peripheral IV 2 right upper extremity SKIN:+ jaundice. No rashes, or lesions. Skin temperature appropriate. Multiple telangiectasias to lower extremities, trunk. CARDIOVASCULAR: Regular rate and rhythm, no murmurs. Peripheral pulses symmetric. RESPIRATORY/CHEST: Symmetric, unlabored respirations on room air. Clear to auscultation. Breath sounds equal bilaterally. GASTROINTESTINAL: Limited abdominal exam, patient side lying and does not reposition for exam. Abdomen soft, distended, tender to palpation-though patient does not localize. +hepatosplenomegaly. Bowel sounds normoactive. NEUROLOGICAL: Sleeping though arouses easily for exam. awakens and mostly oriented. Seems to have reasonable insight. Cooperative, follows commands. Moves all 4 extremities. PSYCHIATRIC: No obvious anxiety/depression . Diagnostic Tests Laboratory Laboratory Tests Test 05/20/16 05/20/16 05/20/16 05/21/16 16:07 16:39 18:35 00:05 White Blood Count 3.9 TH/MM3 (4.0-11.0) Red Blood Count 2.99 MIL/MM3 (4.00-5.30) Hemoglobin 9.6 GM/DL (11.6-15.3) Hematocrit 29.4 % (35.0-46.0) Mean Corpuscular Volume 98.2 FL (80.0-100.0) Mean Corpuscular Hemoglobin 32.2 PG (27.0-34.0) Mean Corpuscular Hemoglobin 32.7 % Concent (32.0-36.0) Red Cell Distribution Width 24.3 % (11.6-17.2) Platelet Count 52 TH/MM3 (150-450) Mean Platelet Volume 10.9 FL (7.0-11.0) Neutrophils (%) (Auto) 62.4 % (16.0-70.0) Lymphocytes (%) (Auto) 21.7 % (9.0-44.0) Monocytes (%) (Auto) 13.9 % (0.0-8.0) Eosinophils (%) (Auto) 1.6 % (0.0-4.0) Basophils (%) (Auto) 0.4 % (0.0-2.0) Neutrophils # (Auto) 2.4 TH/MM3 (1.8-7.7) Lymphocytes # (Auto) 0.8 TH/MM3 (1.0-4.8) Monocytes # (Auto) 0.5 TH/MM3 (0-0.9) Eosinophils # (Auto) 0.1 TH/MM3 (0-0.4) Basophils # (Auto) 0.0 TH/MM3 (0-0.2) CBC Comment AUTO DIFF Differential Comment AUTO DIFF CONFIRMED Sodium Level 133 MEQ/L (136-145) Potassium Level 4.0 MEQ/L (3.5-5.1) Chloride Level 103 MEQ/L (98-107) Carbon Dioxide Level 21.6 MEQ/L (21.0-32.0) Anion Gap 8 MEQ/L (5-15) Blood Urea Nitrogen 5 MG/DL (7-18) Creatinine 0.82 MG/DL (0.50-1.00) Estimat Glomerular Filtration 90 ML/MIN (>89) Rate Random Glucose 147 MG/DL (74-106) Lactic Acid Level 2.5 mmol/L 1.3 mmol/L (0.4-2.0) (0.4-2.0) Calcium Level 8.0 MG/DL (8.5-10.1) Total Bilirubin 4.9 MG/DL (0.2-1.0) Aspartate Amino Transf 52 U/L (15-37) (AST/SGOT) Alanine Aminotransferase 28 U/L (10-53) (ALT/SGPT) Alkaline Phosphatase 190 U/L (45-117) Ammonia 17 MCMOL/L (11-32) Total Protein 7.1 GM/DL (6.4-8.2) Albumin 2.6 GM/DL (3.4-5.0) Urine Color YELLOW (YELLW/STRAW) Urine Turbidity CLEAR (CLEAR) Urine pH 6.5 (5.0-8.5) Urine Specific [place] 1.011 (1.002-1.035) Urine Protein NEG mg/dL (NEG-TRACE) Urine Glucose (UA) NEG mg/dL (NEG) Urine Ketones NEG mg/dL (NEG) Urine Occult Blood SMALL (NEG) Urine Nitrite NEG (NEG) Urine Bilirubin SMALL (NEG) Urine Urobilinogen LESS THAN 2.0 MG/DL (LESS THAN 2.0) Urine Leukocyte Esterase SMALL (NEG) Urine RBC 8 /hpf (0-3) Urine WBC 2 /hpf (0-5) Urine Squamous Epithelial 4 /hpf (0-5) Cells Urine Hyaline Casts 1 /lpf (RARE) Microscopic Urinalysis Comment CULT NOT INDICATED Stool C. difficile Toxin (PCR) NEGATIVE (NEGATIVE) Stl C. difficile Toxin PRESUMPTIVE Epiderm 027 NEGATIVE (NEGATIVE) Test 05/21/16 05/21/16 05/21/16 05/22/16 07:39 17:05 21:00 06:12 White Blood Count 6.6 TH/MM3 5.7 TH/MM3 (4.0-11.0) (4.0-11.0) Red Blood Count 3.06 MIL/MM3 2.84 MIL/MM3 (4.00-5.30) (4.00-5.30) Hemoglobin 9.7 GM/DL 9.4 GM/DL (11.6-15.3) (11.6-15.3) Hematocrit 29.6 % 27.3 % (35.0-46.0) (35.0-46.0) Mean Corpuscular Volume 96.7 FL 96.1 FL (80.0-100.0) (80.0-100.0) Mean Corpuscular Hemoglobin 31.8 PG 33.1 PG (27.0-34.0) (27.0-34.0) Mean Corpuscular Hemoglobin 32.9 % 34.5 % Concent (32.0-36.0) (32.0-36.0) Red Cell Distribution Width 24.0 % 23.0 % (11.6-17.2) (11.6-17.2) Platelet Count 44 TH/MM3 48 TH/MM3 (150-450) (150-450) Mean Platelet Volume 10.8 FL 12.0 FL (7.0-11.0) (7.0-11.0) Neutrophils (%) (Auto) 83.4 % % (16.0-70.0) (16.0-70.0) Lymphocytes (%) (Auto) 5.3 % % (9.0-44.0) (9.0-44.0) Monocytes (%) (Auto) 10.5 % % (0.0-8.0) (0.0-8.0) Eosinophils (%) (Auto) 0.2 % (0.0-4.0) % (0.0-4.0) Basophils (%) (Auto) 0.6 % (0.0-2.0) % (0.0-2.0) Neutrophils # (Auto) 5.5 TH/MM3 TH/MM3 (1.8-7.7) (1.8-7.7) Lymphocytes # (Auto) 0.3 TH/MM3 TH/MM3 (1.0-4.8) (1.0-4.8) Monocytes # (Auto) 0.7 TH/MM3 TH/MM3 (0-0.9) (0-0.9) Eosinophils # (Auto) 0.0 TH/MM3 TH/MM3 (0-0.4) (0-0.4) Basophils # (Auto) 0.0 TH/MM3 TH/MM3 (0-0.2) (0-0.2) CBC Comment AUTO DIFF AUTO DIFF Differential Comment AUTO DIFF FINAL DIFF CONFIRMED MANUAL Acanthocytes 1+ (NORMAL) 1+ (NORMAL) Erythrocyte Sedimentation Rate 55 mm/hr (0-20) Sodium Level 133 MEQ/L 131 MEQ/L (136-145) (136-145) Potassium Level 3.9 MEQ/L 4.4 MEQ/L (3.5-5.1) (3.5-5.1) Chloride Level 103 MEQ/L 100 MEQ/L (98-107) (98-107) Carbon Dioxide Level 19.2 MEQ/L 20.4 MEQ/L (21.0-32.0) (21.0-32.0) Anion Gap 11 MEQ/L (5-15) 11 MEQ/L (5-15) Blood Urea Nitrogen 9 MG/DL (7-18) 7 MG/DL (7-18) Creatinine 0.75 MG/DL 0.74 MG/DL (0.50-1.00) (0.50-1.00) Estimat Glomerular Filtration 99 ML/MIN (>89) 101 ML/MIN Rate (>89) Random Glucose 106 MG/DL 106 MG/DL (74-106) (74-106) Calcium Level 7.6 MG/DL 7.7 MG/DL (8.5-10.1) (8.5-10.1) Magnesium Level 1.3 MG/DL (1.5-2.5) Total Bilirubin 5.7 MG/DL 6.7 MG/DL (0.2-1.0) (0.2-1.0) Aspartate Amino Transf 56 U/L (15-37) 59 U/L (15-37) (AST/SGOT) Alanine Aminotransferase 23 U/L (10-53) 24 U/L (10-53) (ALT/SGPT) Alkaline Phosphatase 151 U/L 136 U/L (45-117) (45-117) C-Reactive Protein 1.60 MG/DL (0.00-0.30) Total Protein 6.5 GM/DL 6.9 GM/DL (6.4-8.2) (6.4-8.2) Albumin 2.3 GM/DL 2.3 GM/DL (3.4-5.0) (3.4-5.0) Nasal Screen MRSA (PCR) NEGATIVE (NEGATIVE) Prothrombin Time 21.1 SEC (9.8-11.6) Prothromb Time International 1.9 RATIO Ratio Differential Total Cells 100 Counted Neutrophils % (Manual) 65 % (16-70) Band Neutrophils % 22 % (0-6) Lymphocytes % 7 % (9-44) Monocytes % 6 % (0-8) Neutrophils # (Manual) 5.0 TH/MM3 (1.8-7.7) Platelet Estimate LOW (NORMAL) Platelet Morphology Comment ENLARGED (NORMAL) Ammonia 30 MCMOL/L (11-32) Rheumatoid Factor Screen POSITIVE (NEGATIVE) Rheumatoid Factor Titer 15.5 IU/ML (0.0-14.9) Result Diagram: 05/22/16 0612 05/22/16 0612 Microbiology Microbiology Date/Time Procedure Status Source Growth 05/20/16 16:07 Aerobic Blood Culture - Preliminary Resulted Blood Peripheral NO GROWTH IN 2 DAYS 05/20/16 16:07 Anaerobic Blood Culture - Preliminary Resulted Blood Peripheral NO GROWTH IN 2 DAYS 05/20/16 16:07 Aerobic Blood Culture - Preliminary Resulted Blood Peripheral NO GROWTH IN 2 DAYS 05/20/16 16:07 Anaerobic Blood Culture - Preliminary Resulted Blood Peripheral NO GROWTH IN 2 DAYS 05/20/16 18:15 Influenza Types A,B Antigen (JONA) - Final Complete Nasal Washing NEGATIVE FOR FLU A AND B ANTIGEN.... 05/21/16 21:00 Aerobic Blood Culture - Preliminary Resulted Blood Peripheral NO GROWTH IN 1 DAY 05/21/16 21:00 Anaerobic Blood Culture - Preliminary Resulted Blood Peripheral NO GROWTH IN 1 DAY 05/21/16 21:05 Aerobic Blood Culture - Preliminary Resulted Blood Peripheral NO GROWTH IN 1 DAY 05/21/16 21:05 Anaerobic Blood Culture - Preliminary Resulted Blood Peripheral NO GROWTH IN 1 DAY 05/21/16 22:30 Cryptosporidium Exam Resulted Stool Stool Pending 05/21/16 22:30 Stool Pus (JONA) - Final Resulted Stool Stool 05/21/16 22:30 Giardia Antigen (JONA) Resulted Stool Stool Pending Imaging Last Impressions Hepatobiliary Scan Nuclear Medicine 05/22/16 0000 Signed Impressions: Service Date/Time: Sunday, May 22, 2016 09:30 - CONCLUSION: Patient refused the scan after the first 5 minutes. Nondiagnostic HIDA scan. Donell Bo MD Gall Bladder Ultrasound 05/21/16 0000 Signed Impressions: Service Date/Time: April 08:59 - CONCLUSION: 1. No evidence of gallstones or biliary tract obstruction. 2. There is thickening of the gallbladder wall is 7 mm with a trace of fluid around the gallbladder. This can be seen with either acute or chronic cholecystitis. This would have to be correlated with patient's physical, clinical exam and laboratory values. 3. There is increased echogenicity throughout the liver characteristic of hepatocellular disease such as cirrhosis. There is recanalization of the paraumbilical vein characteristics of cirrhosis. Donell Bo MD Abdomen Ultrasound 05/21/16 0000 Signed Impressions: Service Date/Time: April 09:17 - CONCLUSION: Trace of fluid around the liver. Donell Bo MD Chest X-Ray 05/20/16 0000 Signed Impressions: Service Date/Time: Friday, May 20, 2016 18:04 - CONCLUSION: Mild interstitial prominence. Lingular subsegmental atelectasis. Andrew Rowe MD Abdomen/Pelvis CT 05/20/16 0000 Signed Impressions: Service Date/Time: Friday, May 20, 2016 18:40 - CONCLUSION: 1. Cirrhosis and portal hypertension stigmata as described above. 2. Gallbladder wall thickening/edema noted and associated ascites. 3. Left adnexal cyst. Andrew Rowe MD Procedures Plan for ultrasound-guided paracentesis 05/21 Assessment and Plan Disease Oriented Problem List: (1) Ascites (2) Liver cirrhosis (3) Colitis (4) Sepsis (5) UTI (urinary tract infection) (6) End stage liver disease (7) Abdominal pain (8) Anemia (9) Hyponatremia Symptom Scale: (1) Pain, abdominal (2) Dyspnea (3) Nausea (4) Encephalopathy Pertinent Non-Medical Issues Psychosocial:Originally from [place] though has lived in [place] for much of her life. Has not worked for many years, has been on disability due to medical issues. Not . Supported by one adult son Blade, one adult daughter Teagan. Priors most recent hepatic issues had been doing well, functionally independent, enjoying socializing with friends and family. Spiritual: Legal: Patient mental status fluctuates secondary to medical conditions. She is oriented and appropriate at times though insight also appears to fluctuate. Would be best supported in decision-making by healthcare proxy. Not . Has 2 adult children who would be legal HCP per [place] statutes. Ethical issues impacting care: Important Contacts Teagan Salinast (Daughter) [phone] Son Blade- . Prognosis This patient presented for recurrent abdominal pain and fever, findings of sepsis, probable cholecystitis. was recently discharged one week ago for acute hospitalization for acute alcoholic liver disease. Patient continues to have associated issues including abdominal pain, ascites, thrombocytopenia, ? cholecystitis. If she continues to drink, she will likely continue to experience complications related to end-stage liver disease, limited life expectancy, appropriate for hospice if goals are compatible. However, if she abstains from alcohol, still possible her liver function can stabilize and she could live for many years. . Code Status: Full Code Plan * Legal decision maker:Patient mental status fluctuates secondary to medical conditions. She is oriented and appropriate at times though insight also appears to fluctuate. Would be best supported in decision-making by healthcare proxy. Not . Has 2 adult children who would be legal HCP per [place] statutes. * Goals: patient has expressed aggressive goals thus far. 05/21/16 Met with son and daughter at length at bedside, patient slept for much of this meeting. Goals are aggressive, they are supportive of trying to get patient through this acute issue and back to the stability that she had prior to her most recent relapse with alcohol. 05/22/16-patient more awake and participative today. She wants to comply with treatments and obtain recommended testing however she cannot complete the HIDA scan she complains of too frequent of a bowel movement to lay still, additionally indicates that the machine scares her. Her primary complaint is ongoing bowel movements. * CODE STATUS: FULL * SYMPTOMS: --Encephalopathy: Multifactorialalcoholic encephalopathy, hepatic, sepsis. Ammonia 17. LFTs not significantly changed from most recent discharge. Patient more awake today. may continue to fluctuate --Dyspnea: Presented with shortness of breath, likely secondary to ascites, has recently required paracentesis for drainage. Denies dyspnea today. We'll continue to evaluate. --Abdominal pain: Patient endorses ongoing right upper quadrant abdominal pain since admission 1 week ago; companied by nausea. Ultrasound gallbladder negative for obstruction however does show some wall thickening,? Cholecystitis. Further workup pending, HIDA scan was ordered and attempted earlier today--patient may require cholecystostomy tube. Patient was unable to complete exam due to frequent bowel movements and anxiety. Could consider one time dose benzodiazepine to assist with anxiety component however this would be done cautiously given patient's altered mental status and significantly impaired hepatic function--at risk for worsening mental status and further clinical deterioration with sedation/lethargy. Has PRN PO ativan available, nursing gave 1mg dose today (after aborted scan) which pt appeared to tolerate well. has 2mg morphine PRN available-- cautious use of any opiates due to liver disease and fluctuating mental status and aggressive goals. --Nausea: Intermittent nausea with abdominal pain, no vomiting. Possible cholecystitis. Consider adding prn Zofran, reduced dose for hepatic impairment. * Palliative care will continue to follow during hospital course as condition evolves, to assist patient/decision-maker with understanding of medical conditions, weighing benefits/burdens of treatment options, for clarification of goals of treatment. Additionally will assist with any symptoms of palliative concern Time Spent Total Floor Time (mins): 20 >50% Counseling/Coord of Care: Yes (d/w RN) Attestation To help prompt me to consider important information that might be impacting today's encounter and assessment, information from prior notes written by myself or my colleagues may have been "brought forward" into today's note. My signature on this note, however, is an attestation that I personally performed the exam, history, and/or decision-making noted today, and, unless otherwise indicated, the interactions with patient, family, and staff as well as the review of records all occurred today. I also attest that the listed assessment and stated plan reflect my best clinical judgment today based on the combination of historical information, prior notes, and today's exam/ interactions. When time spent is documented, it refers only to time spent today by the signer, or if indicated, combined time spent today by collaborating physician/nurse practitioner. Christy Baxter May 22, 2016 16:37
[2016-05-22] MEDS: MORPHINE SULFATE 4 MG/ML INJ IV PUSH PRN (17:55)
--- NOTE | 2016-05-22 18:05 | HHI.PR ---
Subjective Remarks Tacycardia improving Patient still having high fevers bp stable patient states that she does not wish to have the test still has some abdominal pain c/o diarrhea feels weak wbc better Objective Vitals Vital Signs Date Time Temp Pulse Resp B/P Pulse Ox O2 Delivery O2 Flow Rate FiO2 05/22/16 16:00 99.2 93 24 123/65 99 05/22/16 12:00 98.7 91 24 112/61 98 05/22/16 08:00 98.9 98 28 123/63 100 05/22/16 04:00 100.3 104 22 129/60 98 05/22/16 00:00 102.5 95 22 122/68 96 05/21/16 20:00 102.7 102 20 121/58 97 05/21/16 20:00 103 I/O 05/21/16 05/21/16 05/21/16 05/22/16 05/22/16 05/22/16 06:59 14:59 22:59 06:59 14:59 22:59 Intake Total 480 ml 400 ml 0 ml 100 ml Output Total 1100 ml 200 ml 150 ml Balance -620 ml 200 ml -150 ml 100 ml Intake Oral 480 ml 400 ml 0 ml 100 ml Output Urine Total 500 ml 200 ml 150 ml Stool Total 600 ml # Voids 4 1 2 # Bowel Movements 4 2 1 2 Result Diagram: 05/22/1612 05/22/16 0612 Imaging Last Impressions Hepatobiliary Scan Nuclear Medicine 05/22/16 0000 Signed Impressions: Service Date/Time: Sunday, May 22, 2016 09:30 - CONCLUSION: Patient refused the scan after the first 5 minutes. Nondiagnostic HIDA scan. Donell Bo MD Gall Bladder Ultrasound 05/21/16 0000 Signed Impressions: Service Date/Time: April 08:59 - CONCLUSION: 1. No evidence of gallstones or biliary tract obstruction. 2. There is thickening of the gallbladder wall is 7 mm with a trace of fluid around the gallbladder. This can be seen with either acute or chronic cholecystitis. This would have to be correlated with patient's physical, clinical exam and laboratory values. 3. There is increased echogenicity throughout the liver characteristic of hepatocellular disease such as cirrhosis. There is recanalization of the paraumbilical vein characteristics of cirrhosis. Donell Bo MD Abdomen Ultrasound 05/21/16 0000 Signed Impressions: Service Date/Time: April 09:17 - CONCLUSION: Trace of fluid around the liver. Donell Bo MD Chest X-Ray 05/20/16 0000 Signed Impressions: Service Date/Time: Friday, May 20, 2016 18:04 - CONCLUSION: Mild interstitial prominence. Lingular subsegmental atelectasis. Andrew Rowe MD Abdomen/Pelvis CT 05/20/16 0000 Signed Impressions: Service Date/Time: Friday, May 20, 2016 18:40 - CONCLUSION: 1. Cirrhosis and portal hypertension stigmata as described above. 2. Gallbladder wall thickening/edema noted and associated ascites. 3. Left adnexal cyst. Andrew Rowe MD Objective Remarks GENERAL: This is a chronically ill patient, in moderate distress from fever and chills. SKIN: Superficial ecchymosis. Spider angiomata. HEAD: Atraumatic. Normocephalic. No temporal or scalp tenderness. EYES: Scleral icterus present. No injection or drainage. ENT: Nose without bleeding, purulent drainage or septal hematoma. Airway patent. NECK: Trachea midline. No JVD CARDIOVASCULAR: S1S2, regular rhythm without murmurs, gallops, or rubs. RESPIRATORY: Bilaterally decreased air entry. GASTROINTESTINAL: Abdomen distended, tenderness diffusely with more so on the right upper quadrant. Bowel sounds presents. No rebound. No guarding. MUSCULOSKELETAL: Extremities without clubbing, cyanosis. Mild bilateral lower extremity 1+ pitting edema.. No calf tenderness. NEUROLOGICAL: Awake and alert.Motor and sensory grossly within normal limits. Normal speech. Medications and IVs Current Medications Medications (Trade) Dose Ordered Sig/Doc Route Start Time Stop Time Status Last Admin (Lasix) 40 mg DAILY PO 05/21/16 09:00 05/22/16 10:23 (Protonix) 40 mg DAILY PO 05/21/16 09:00 05/22/16 10:23 (TRENtal SR) 400 mg Q8H PO 05/20/16 22:00 05/22/16 12:36 (Mephyton) 5 mg DAILY PO 05/21/16 09:00 05/22/16 12:31 (KCl) 20 meq DAILY PO 05/21/16 09:00 05/22/16 10:23 (K-Phos Neutral) 250 mg Q6HR PO 05/21/16 00:00 05/22/16 17:02 (Xifaxan) 550 mg BID PO 05/20/16 21:00 05/22/16 10:23 (Aldactone) 100 mg DAILY PO 05/21/16 09:00 05/22/16 10:23 (Vitamin B1) 100 mg DAILY PO 05/21/16 09:00 05/22/16 10:23 (Narcan Inj) 0.4 mg UNSCH PRN IV 05/20/16 20:15 Magnesium Oxide 400 mg 400 mg DAILY PO 05/21/16 09:00 05/22/16 10:23 (Zosyn 4.5 Gm Premix) 100 ml @ 200 mls/hr Q6H IV 05/20/16 23:00 05/22/16 17:02 (NS Flush) 2 ml UNSCH PRN IV FLUSH 05/21/16 00:45 05/21/16 22:50 (NS Flush) 2 ml BID IV FLUSH 05/21/16 09:00 05/22/16 10:22 (Ativan) 1 mg Q4H PRN PO 05/21/16 00:45 (Ativan Inj) 1 mg Q4H PRN IV PUSH 05/21/16 00:45 05/22/16 12:31 (Ativan) 2 mg Q2H PRN PO 05/21/16 00:45 (Ativan Inj) 2 mg Q2H PRN IV PUSH 05/21/16 00:45 (Ativan Inj) 2 mg Q1H PRN IV PUSH 05/21/16 00:45 (Ativan Inj) 2 mg Q15M PRN IV PUSH 05/21/16 00:45 (Flagyl) 500 mg Q8HR PO 05/21/16 22:00 05/22/16 12:31 (Lactinex) 1 tab TID PO 05/21/16 18:00 05/22/16 17:01 (Morphine Inj) 2 mg Q4HR PRN IV PUSH 05/21/16 22:30 05/22/16 17:55 Urinary Catheter: No A/P Problem List: (1) Sepsis ICD Code: A41.9 Status: Acute Plan: Patient admitted to the medical floor Continue IV antibiotics as per ID ua negative, x-ray showed mild interstitial prominence, lingular subsegmental atelectasis ? intraabdominal source - continue IV Zosyn and po Flagyl. Id consulted - appreciated Blood cultures negative to date. Patient's tachycardia improving, the patient still febrile. Gallium scan for fever of unknown origin workup. (2) Abdominal pain ICD Code: R10.9 Status: Acute Plan: HIDA not completed. Patient refused scan. (3) Ascites ICD Code: R18.8 Status: Acute Plan: abdomen soft, fu GI recommendations Continue diuretics - lasix and spironolactone. (4) Liver cirrhosis ICD Code: K74.60 Status: Resolved Plan: Liver cirrhosis. Pt was recently hospitalized earlier this month and had MELD score 23 at that time. Has not had PT/INR during this hospitalization. 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 She quit drinking at that time. However she started drinking again about 6 months ago, 3-4 beers per day up until her hospitalization earlier this month. Hepatitis panel negative, FRED negative. AMA <20.0. ASMA negative. Alpha antitrypsin 129, Ceruloplasmin 17. AFP 2.2. - Ascites, mild, not tense. Spironolactone. Lasix (5) Leukopenia ICD Code: D72.819 Status: Resolved Plan: Likely secondary to sepsis. Now resolved. Continue to monitor CBC with differential. (6) Thrombocytopenia ICD Code: D69.6 Status: Acute Plan: chronic. Likely secondary to liver disease. Platelets count trending down Platelets slightly improved (7) Hyponatremia ICD Code: E87.1 Status: Chronic Plan: Due to hypovolemic hyponatremia. Sodium stable at 133. 12/20 Na slightly worst today 131 - continue to monitor sodium (8) Hypomagnesemia ICD Code: E83.42 Status: Acute Plan: Likely secondary to decreased oral intake. Continue to monitor and replace as needed. Problem Qualifiers (1) Sepsis: Qualified Code: A41.9 - Sepsis, due to unspecified organism (2) Abdominal pain: Qualified Code: R10.11 - Right upper quadrant abdominal pain (3) Ascites: Qualified Code: K70.31 - Ascites due to alcoholic cirrhosis (4) Liver cirrhosis: Qualified Code: K70.31 - Alcoholic cirrhosis of liver with ascites Correia Ley,Clark MD May 22, 2016 18:05
[2016-05-23] VITALS (8 sets, daily range): BP systolic 105–136; BP diastolic 53–73; PULSE 93–103; RESP 20–22; TEMP 97.7–100; O2SAT 95–99
[2016-05-23] MEDS: MORPHINE SULFATE 4 MG/ML INJ IV PUSH PRN ×2 (03:43→18:24)
[2016-05-23] MEDS: metroNIDAZOLE 500 MG TAB PO SCH ×3 (05:35→22:13)
[2016-05-23] MEDS: POTASSIUM PHOSPHATE/SODIUM PHOSPHATE 250 MG TAB PO SCH ×4 (05:35→22:16)
[2016-05-23] MEDS: PIPERACIL-TAZO 4.5 GM PREMIX 100 ML IV SCH ×4 (05:35→22:13)
[2016-05-23] MEDS: PENTOXIFYLLINE 400 MG CONTROLLED RELEASE TAB PO SCH ×3 (05:35→22:13)
[2016-05-23] MEDS: PHYTONADIONE 5 MG TAB PO SCH (09:24)
[2016-05-23] MEDS: POTASSIUM CHLORIDE 20 MEQ CONTROLLED RELEASE TAB PO SCH (09:24)
[2016-05-23] MEDS: PANTOPRAZOLE SOD 40 MG DELAYED RELEASE TAB PO SCH (09:24)
[2016-05-23] MEDS: LACTOBACILLUS ACIDOPHILUS TAB PO SCH ×3 (09:24→17:12)
[2016-05-23] MEDS: THIAMINE HCL 100 MG TAB PO SCH (09:24)
[2016-05-23] MEDS: FUROSEMIDE 40 MG TAB PO SCH (09:24)
[2016-05-23] MEDS: MAGNESIUM OXIDE 400 MG TAB PO SCH (09:24)
[2016-05-23] MEDS: SPIRONOLACTONE 100 MG TAB PO SCH (09:24)
[2016-05-23] MEDS: RIFAXIMIN 550 MG TAB PO SCH ×2 (09:24→22:13)
[2016-05-23] MEDS: SODIUM CHLORIDE 0.9% FLUSH 5 ML FLUSH IV FLUSH SCH ×2 (09:25→22:13)
--- NOTE | 2016-05-23 14:58 | HHI.GIFU ---
Subjective Remarks Having multiple diarrhea stools, C/O being cold, has low grade fever, but is using a warming blanket, all cultures are negative so far. Was not able to complete HIDA scan yesterday/ (Tasha Harrison) Objective Vitals I&O Vital Signs Date Time Temp Pulse Resp B/P Pulse Ox O2 Delivery O2 Flow Rate FiO2 05/23/16 13:00 99.2 93 22 105/53 99 05/23/16 08:15 Room Air 05/23/16 08:00 98.2 103 22 131/69 96 05/23/16 04:00 98.1 97 20 123/66 95 05/23/16 00:00 100.0 95 20 128/62 97 05/22/16 21:00 Room Air 05/22/16 20:09 88 05/22/16 20:00 101.1 92 20 119/63 95 05/22/16 16:00 99.2 93 24 123/65 99 I/O 05/22/16 05/22/16 05/22/16 05/23/16 05/23/16 05/23/16 07:00 15:00 23:00 07:00 15:00 23:00 Intake Total 0 ml 100 ml 120 ml 580 ml 105 ml Output Total 150 ml Balance -150 ml 100 ml 120 ml 580 ml 105 ml Intake Oral 0 ml 100 ml 120 ml 480 ml IV Total 100 ml 105 ml Output Urine Total 150 ml # Voids 1 2 2 4 # Bowel Movements 1 2 2 4 Laboratory Date/Time Procedure Status Source Growth 05/21/16 22:30 Cryptosporidium Exam Resulted Stool Stool Pending 05/21/16 22:30 Stool Pus (JONA) - Final Resulted Stool Stool 05/21/16 22:30 Giardia Antigen (JONA) Resulted Stool Stool Pending 05/21/16 21:05 Aerobic Blood Culture - Preliminary Resulted Blood Peripheral NO GROWTH IN 2 DAYS 05/21/16 21:05 Anaerobic Blood Culture - Preliminary Resulted Blood Peripheral NO GROWTH IN 2 DAYS 05/20/16 18:15 Influenza Types A,B Antigen (JONA) - Final Complete Nasal Washing NEGATIVE FOR FLU A AND B ANTIGEN.... Imaging Last 48 hours Impressions Hepatobiliary Scan Nuclear Medicine 05/22/16 0000 Signed Impressions: Service Date/Time: Sunday, May 22, 2016 09:30 - CONCLUSION: Patient refused the scan after the first 5 minutes. Nondiagnostic HIDA scan. Donell Bo MD Physical Exam HEENT: Pupils round and reactive to light; normocephalic; atraumatic; no jaundice. Throat is clear. NECK: Neck is supple, no JVD, no lymphadenopathy. CHEST: Chest is clear to auscultation and percussion. CARDIAC: Regular rate and rhythm with no murmur gallop or rubs. ABDOMEN: Soft distended, mild generalized tenderness,no hepatosplenomegaly; bowel sounds are present in all four quadrants. EXTREMITIES: No clubbing, cyanosis, or edema. SKIN: Normal; no rash; no jaundice. RN STARS: No focal deficits; alert and oriented times three. (Tasha Harrison) Assessment and Plan Plan ASSESSMENT: - Fever of undetermined etiology. Pt had low grade fever during recent hospitalization. BCx, Peritoneal Cx, and Urine Cx at that time was all negative. It was thought that these may be drug related. However, she has continued to have fevers since her discharge 100-101 and also reports nausea, vomiting, RUQ pain. 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 US (05/21/16)-----> 1. No evidence of gallstones or biliary tract obstruction. 2. There is thickening of the gallbladder wall is 7 mm with a trace of fluid around the gallbladder. This can be seen with either acute or chronic cholecystitis. This would have to be correlated with patient's physical, clinical exam and laboratory values. 3. There is increased echogenicity throughout the liver characteristic of hepatocellular disease such as cirrhosis. There is recanalization of the paraumbilical vein characteristics of cirrhosis. Abdomen/Pelvis CT (05/20/16)----> 1. Cirrhosis and portal hypertension stigmata as described above. 2. Gallbladder wall thickening/edema noted and associated ascites. 3. Left adnexal cyst. Flagyl. Zosyn. Will get HIDA scan to rule out acute cholecystitis. - Alcoholic hepatitis, elevated LFTs. LFTs stable, about the same as previous hospitalization. She has been on Pentoxifylline, not a candidate for steroids with persistent fevers. - Diarrhea. Colonoscopy (05/07/16) and this revealed colitis, rectal varices, hemorrhoids, diverticulosis. Pathology revealed colonic mucosa without significant histopathologic abnormality. Stool studies pending - Liver cirrhosis. Pt was recently hospitalized earlier this month and had MELD score 23 at that time. Has not had PT/INR during this hospitalization. 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 She quit drinking at that time. However she started drinking again about 6 months ago, 3-4 beers per day up until her hospitalization earlier this month. Hepatitis panel negative, FRED negative. AMA <20.0. ASMA negative. Alpha antitrypsin 129, Ceruloplasmin 17. AFP 2.2. - Ascites, mild, not tense. Spironolactone. Lasix - RUQ Pain. Will get HIDA scan to rule out cholecystitis - Hepatic encephalopathy. Xifaxan. - Thrombocytopenia - Esophageal varices, portal htn. EGD (05/05/16) and this revealed esophagitis , portal hypertension pathology revealed acute esophagitis with no fungal organisms. She then had a - Anemia. 9.4/27.3 05/23/16--Still having low grade fevers, uses arming blanket, cultures are negative so far, had multiple diarrhea stools, cultures are negative so far. PLAN: - Clear liquids - Repeat HIDA Scan when patient can tolerate procedure - Cont. PPI - Cont. Lasix - Cont. Spironolactone - Cont. Xifaxan - Cont. Flagyl - Cont. Zosyn - Blood cultures negative so far - Monitor CBC, PT/INR, CMP, Ammonia - Supportive care - Further recommendations to follow based on results of above - Pt seen and examined by Dr. Brito and myself and this note is written on his behalf (Tasha Harrison) Physician Comments Seen and examined, plan as above, will follow up with you. (Mike Brito MD) Tasha Harrison May 23, 2016 14:58 Mike Brito MD May 24, 2016 09:50
--- NOTE | 2016-05-23 19:23 | HHI.PR ---
Subjective Remarks Late entry - patient seen earlier at 10:50 am patient c/o abdominal pain - better still ahving fevers tmax 101.1 Objective Vitals Vital Signs Date Time Temp Pulse Resp B/P Pulse Ox O2 Delivery O2 Flow Rate FiO2 05/23/16 16:00 97.7 95 20 136/73 99 05/23/16 13:00 99.2 93 22 105/53 99 05/23/16 08:15 Room Air 05/23/16 08:00 98.2 103 22 131/69 96 05/23/16 07:56 94 05/23/16 04:00 98.1 97 20 123/66 95 05/23/16 00:00 100.0 95 20 128/62 97 05/22/16 21:00 Room Air 05/22/16 20:09 88 05/22/16 20:00 101.1 92 20 119/63 95 I/O 05/22/16 05/22/16 05/22/16 05/23/16 05/23/16 05/23/16 07:00 15:00 23:00 07:00 15:00 23:00 Intake Total 0 ml 100 ml 120 ml 580 ml 105 ml Output Total 150 ml 300 ml Balance -150 ml 100 ml 120 ml 580 ml -195 ml Intake Oral 0 ml 100 ml 120 ml 480 ml IV Total 100 ml 105 ml Output Urine Total 150 ml 300 ml # Voids 1 2 2 4 # Bowel Movements 1 2 2 4 Result Diagram: 05/22/16 0612 05/22/16 0612 Imaging Last Impressions Hepatobiliary Scan Nuclear Medicine 05/22/16 0000 Signed Impressions: Service Date/Time: Sunday, May 22, 2016 09:30 - CONCLUSION: Patient refused the scan after the first 5 minutes. Nondiagnostic HIDA scan. Donell Bo MD Gall Bladder Ultrasound 05/21/16 0000 Signed Impressions: Service Date/Time: April 08:59 - CONCLUSION: 1. No evidence of gallstones or biliary tract obstruction. 2. There is thickening of the gallbladder wall is 7 mm with a trace of fluid around the gallbladder. This can be seen with either acute or chronic cholecystitis. This would have to be correlated with patient's physical, clinical exam and laboratory values. 3. There is increased echogenicity throughout the liver characteristic of hepatocellular disease such as cirrhosis. There is recanalization of the paraumbilical vein characteristics of cirrhosis. Donell Bo MD Abdomen Ultrasound 05/21/16 0000 Signed Impressions: Service Date/Time: April 09:17 - CONCLUSION: Trace of fluid around the liver. Donell Bo MD Chest X-Ray 05/20/16 0000 Signed Impressions: Service Date/Time: Friday, May 20, 2016 18:04 - CONCLUSION: Mild interstitial prominence. Lingular subsegmental atelectasis. Andrew Rowe MD Abdomen/Pelvis CT 05/20/16 0000 Signed Impressions: Service Date/Time: Friday, May 20, 2016 18:40 - CONCLUSION: 1. Cirrhosis and portal hypertension stigmata as described above. 2. Gallbladder wall thickening/edema noted and associated ascites. 3. Left adnexal cyst. Andrew Rowe MD Objective Remarks GENERAL: This is a chronically ill patient, in nad SKIN: Superficial ecchymosis. Spider angiomata. HEAD: Atraumatic. Normocephalic. No temporal or scalp tenderness. EYES: Scleral icterus present. No injection or drainage. ENT: Nose without bleeding, purulent drainage or septal hematoma. Airway patent. NECK: Trachea midline. No JVD CARDIOVASCULAR: S1S2, regular rhythm without murmurs, gallops, or rubs. RESPIRATORY: Bilaterally decreased air entry. GASTROINTESTINAL: Abdomen distended, tenderness diffusely with more so on the right upper quadrant. Bowel sounds presents. No rebound. No guarding. MUSCULOSKELETAL: Extremities without clubbing, cyanosis. Mild bilateral lower extremity 1+ pitting edema.. No calf tenderness. NEUROLOGICAL: Awake and alert.Motor and sensory grossly within normal limits. Normal speech. Medications and IVs Current Medications Medications (Trade) Dose Ordered Sig/Doc Route Start Time Stop Time Status Last Admin (Lasix) 40 mg DAILY PO 05/21/16 09:00 05/23/16 09:24 (Protonix) 40 mg DAILY PO 05/21/16 09:00 05/23/16 09:24 (TRENtal SR) 400 mg Q8H PO 05/20/16 22:00 05/23/16 16:45 (Mephyton) 5 mg DAILY PO 05/21/16 09:00 05/23/16 09:24 (KCl) 20 meq DAILY PO 05/21/16 09:00 05/23/16 09:24 (K-Phos Neutral) 250 mg Q6HR PO 05/21/16 00:00 05/23/16 17:11 (Xifaxan) 550 mg BID PO 05/20/16 21:00 05/23/16 09:24 (Aldactone) 100 mg DAILY PO 05/21/16 09:00 05/23/16 09:24 (Vitamin B1) 100 mg DAILY PO 05/21/16 09:00 05/23/16 09:24 (Narcan Inj) 0.4 mg UNSCH PRN IV 05/20/16 20:15 Magnesium Oxide 400 mg 400 mg DAILY PO 05/21/16 09:00 05/23/16 09:24 (Zosyn 4.5 Gm Premix) 100 ml @ 200 mls/hr Q6H IV 05/20/16 23:00 05/23/16 17:11 (NS Flush) 2 ml UNSCH PRN IV FLUSH 05/21/16 00:45 05/21/16 22:50 (NS Flush) 2 ml BID IV FLUSH 05/21/16 09:00 05/23/16 09:25 (Ativan) 1 mg Q4H PRN PO 05/21/16 00:45 (Ativan Inj) 1 mg Q4H PRN IV PUSH 05/21/16 00:45 05/22/16 12:31 (Ativan) 2 mg Q2H PRN PO 05/21/16 00:45 (Ativan Inj) 2 mg Q2H PRN IV PUSH 05/21/16 00:45 (Ativan Inj) 2 mg Q1H PRN IV PUSH 05/21/16 00:45 (Ativan Inj) 2 mg Q15M PRN IV PUSH 05/21/16 00:45 (Flagyl) 500 mg Q8HR PO 05/21/16 22:00 05/23/16 16:45 (Lactinex) 1 tab TID PO 05/21/16 18:00 05/23/16 17:12 (Morphine Inj) 2 mg Q4HR PRN IV PUSH 05/21/16 22:30 05/23/16 18:24 Urinary Catheter: No Vascular Central Line Catheter: No A/P Problem List: (1) Sepsis ICD Code: A41.9 Status: Acute Plan: Patient admitted to the medical floor Continue IV antibiotics as per ID ua negative, x-ray showed mild interstitial prominence, lingular subsegmental atelectasis ? intraabdominal source - continue IV Zosyn and po Flagyl. Id consulted - appreciated Blood cultures negative to date. Patient's tachycardia improving, the patient still febrile. Gallium scan for fever of unknown origin workup. Psotive RF and elevated FRED (2) Abdominal pain ICD Code: R10.9 Status: Acute Plan: HIDA not completed. Patient refused scan. (3) Ascites ICD Code: R18.8 Status: Acute Plan: abdomen soft, fu GI recommendations Continue diuretics - lasix and spironolactone. (4) Liver cirrhosis ICD Code: K74.60 Status: Resolved Plan: Liver cirrhosis. Pt was recently hospitalized earlier this month and had MELD score 23 at that time. Has not had PT/INR during this hospitalization. 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 She quit drinking at that time. However she started drinking again about 6 months ago, 3-4 beers per day up until her hospitalization earlier this month. Hepatitis panel negative, FRED negative. AMA <20.0. ASMA negative. Alpha antitrypsin 129, Ceruloplasmin 17. AFP 2.2. - Ascites, mild, not tense. Spironolactone. Lasix (5) Leukopenia ICD Code: D72.819 Status: Resolved Plan: Likely secondary to sepsis. Now resolved. Continue to monitor CBC with differential. (6) Thrombocytopenia ICD Code: D69.6 Status: Acute Plan: chronic. Likely secondary to liver disease. Platelets count trending down Platelets slightly improved (7) Hyponatremia ICD Code: E87.1 Status: Chronic Plan: Due to hypovolemic hyponatremia. Sodium stable at 133. 12/20 Na slightly worst today 131 - continue to monitor sodium (8) Hypomagnesemia ICD Code: E83.42 Status: Acute Plan: Likely secondary to decreased oral intake. Continue to monitor and replace as needed. Problem Qualifiers (1) Sepsis: Qualified Code: A41.9 - Sepsis, due to unspecified organism (2) Abdominal pain: Qualified Code: R10.11 - Right upper quadrant abdominal pain (3) Ascites: Qualified Code: K70.31 - Ascites due to alcoholic cirrhosis (4) Liver cirrhosis: Qualified Code: K70.31 - Alcoholic cirrhosis of liver with ascites Clark Bernabe MD May 23, 2016 19:23
[2016-05-24] VITALS: BP 115/56; PULSE 91; RESP 18; TEMP 99.4; O2SAT 97
[2016-05-24] MEDS: SODIUM CHLORIDE 0.9% FLUSH 5 ML FLUSH IV FLUSH PRN (00:29)
[2016-05-24] MEDS: MORPHINE SULFATE 4 MG/ML INJ IV PUSH PRN ×3 (00:29→19:36)
[2016-05-24 04:00] VITALS: BP 120/63; PULSE 89; RESP 20; TEMP 98.9; O2SAT 96
[2016-05-24] MEDS: metroNIDAZOLE 500 MG TAB PO SCH ×3 (05:21→21:36)
[2016-05-24] MEDS: POTASSIUM PHOSPHATE/SODIUM PHOSPHATE 250 MG TAB PO SCH ×6 (05:21→22:39)
[2016-05-24] MEDS: PENTOXIFYLLINE 400 MG CONTROLLED RELEASE TAB PO SCH ×3 (05:21→21:36)
[2016-05-24] MEDS: PIPERACIL-TAZO 4.5 GM PREMIX 100 ML IV SCH ×4 (05:24→22:44)
[2016-05-24 07:08] LABS: ALT (GPT) 21 U/L (10-53); ANION GAP 11 MEQ/L (5-15); AST (GOT) 54 U/L (15-37); BICARBONATE 18.6 MEQ/L (21.0-32.0); BLOOD UREA NITROGEN 6 MG/DL (7-18); CHLORIDE 103 MEQ/L (98-107); GLOMERULAR FILTRATION RATE 117 ML/MIN (>89); MAGNESIUM 1.2 MG/DL (1.5-2.5); SODIUM (NA) 133 MEQ/L (136-145)
[2016-05-24 07:09] LABS: ALKALINE PHOSPHATASE 96 U/L (45-117); TOTAL BILIRUBIN ADULT 7.2 MG/DL (0.2-1.0)
[2016-05-24 07:40] LABS: AUTOMATED NEUTROPHIL # 3.7 TH/MM3 (1.8-7.7); BASOPHIL % 0.6 % (0.0-2.0); EOSINOPHIL # 0.1 TH/MM3 (0-0.4); HEMATOCRIT 27.1 % (35.0-46.0); LYMPH % 20.4 % (9.0-44.0); LYMPHOCYTE # 1.2 TH/MM3 (1.0-4.8); MEAN CELL VOLUME 96.4 FL (80.0-100.0); MEAN CORPUSCULAR HEMOGLOBIN 32.6 PG (27.0-34.0); MEAN CORPUSCULAR HGB CONC 33.8 % (32.0-36.0); MONO % 17.1 % (0.0-8.0); NEUT % 60.9 % (16.0-70.0); PLATELET COUNT 72 TH/MM3 (150-450); RED BLOOD COUNT 2.81 MIL/MM3 (4.00-5.30); RED CELL DISTRIBUTION WIDTH 22.5 % (11.6-17.2); WHITE BLOOD COUNT 6.1 TH/MM3 (4.0-11.0)
[2016-05-24 07:45] LABS: HEMO FLAGS AUTO DIFF
[2016-05-24 08:00] VITALS: BP 113/58; PULSE 90; PULSE 93; RESP 20; TEMP 98.1; O2SAT 98
[2016-05-24] MEDS: RIFAXIMIN 550 MG TAB PO SCH ×2 (09:06→21:36)
[2016-05-24] MEDS: PANTOPRAZOLE SOD 40 MG DELAYED RELEASE TAB PO SCH (09:06)
[2016-05-24] MEDS: MAGNESIUM OXIDE 400 MG TAB PO SCH (09:07)
[2016-05-24] MEDS: LACTOBACILLUS ACIDOPHILUS TAB PO SCH ×3 (09:07→17:03)
[2016-05-24] MEDS: SPIRONOLACTONE 100 MG TAB PO SCH (09:07)
[2016-05-24] MEDS: SODIUM CHLORIDE 0.9% FLUSH 5 ML FLUSH IV FLUSH SCH ×2 (09:07→21:36)
[2016-05-24] MEDS: POTASSIUM CHLORIDE 20 MEQ CONTROLLED RELEASE TAB PO SCH (09:07)
[2016-05-24] MEDS: FUROSEMIDE 40 MG TAB PO SCH (09:07)
[2016-05-24] MEDS: THIAMINE HCL 100 MG TAB PO SCH (09:07)
[2016-05-24] MEDS: MAGNESIUM SULFATE 1 GM PREMIX 100 ML IV SCH ×2 (11:26→12:22)
[2016-05-24 12:00] VITALS: BP 151/61; PULSE 86; RESP 18; TEMP 98.3; O2SAT 98
[2016-05-24 14:46] LABS: ACANTHOCYTES 1+ (NORMAL); OVALOCYTES 1+ (NORMAL)
[2016-05-24 14:47] LABS: PLATELET ESTIMATE SMEAR LOW (NORMAL); PLATELET MORPHOLOGY NORMAL (NORMAL); SCAN/DIFF AUTO DIFF CONFIRMED
[2016-05-24 16:00] VITALS: BP 113/64; PULSE 85; RESP 18; TEMP 98.1; O2SAT 98
[2016-05-24 20:00] VITALS: BP 107/54; PULSE 90; RESP 16; TEMP 100.6; O2SAT 99
--- NOTE | 2016-05-24 21:09 | HHI.PR ---
Subjective Remarks deferred entry - patient seen at 11:30 am denies cp/sob Patient still c/o diarrhea persistent fevers w T max 101.1 stable vital signs Objective Vitals Vital Signs Date Time Temp Pulse Resp B/P Pulse Ox O2 Delivery O2 Flow Rate FiO2 05/24/16 16:00 98.1 85 18 113/64 98 05/24/16 12:00 98.3 86 18 151/61 98 05/24/16 08:00 98.1 93 20 113/58 98 05/24/16 08:00 90 05/24/16 08:00 Room Air 05/24/16 04:00 98.9 89 20 120/63 96 05/24/16 00:00 99.4 91 18 115/56 97 05/23/16 22:00 Room Air I/O 05/23/16 05/23/16 05/23/16 05/24/16 05/24/16 05/24/16 07:00 15:00 23:00 07:00 15:00 23:00 Intake Total 580 ml 105 ml 720 ml 1200 ml Output Total 300 ml 350 ml Balance 580 ml -195 ml 370 ml 1200 ml Intake Oral 480 ml 720 ml 1200 ml IV Total 100 ml 105 ml Output Urine Total 300 ml 350 ml # Voids 4 2 # Bowel Movements 4 0 0 Result Diagram: 05/24/16 0555 05/24/16 0555 Imaging Last Impressions Hepatobiliary Scan Nuclear Medicine 05/22/16 0000 Signed Impressions: Service Date/Time: Sunday, May 22, 2016 09:30 - CONCLUSION: Patient refused the scan after the first 5 minutes. Nondiagnostic HIDA scan. Donell Bo MD Gall Bladder Ultrasound 05/21/16 0000 Signed Impressions: Service Date/Time: April 08:59 - CONCLUSION: 1. No evidence of gallstones or biliary tract obstruction. 2. There is thickening of the gallbladder wall is 7 mm with a trace of fluid around the gallbladder. This can be seen with either acute or chronic cholecystitis. This would have to be correlated with patient's physical, clinical exam and laboratory values. 3. There is increased echogenicity throughout the liver characteristic of hepatocellular disease such as cirrhosis. There is recanalization of the paraumbilical vein characteristics of cirrhosis. Donell Bo MD Abdomen Ultrasound 05/21/16 0000 Signed Impressions: Service Date/Time: April 09:17 - CONCLUSION: Trace of fluid around the liver. Donell Bo MD Chest X-Ray 05/20/16 0000 Signed Impressions: Service Date/Time: Friday, May 20, 2016 18:04 - CONCLUSION: Mild interstitial prominence. Lingular subsegmental atelectasis. Andrew Rowe MD Abdomen/Pelvis CT 05/20/16 0000 Signed Impressions: Service Date/Time: Friday, May 20, 2016 18:40 - CONCLUSION: 1. Cirrhosis and portal hypertension stigmata as described above. 2. Gallbladder wall thickening/edema noted and associated ascites. 3. Left adnexal cyst. Andrew Rowe MD Objective Remarks GENERAL: This is a chronically ill patient, in nad SKIN: Superficial ecchymosis. Spider angiomata. HEAD: Atraumatic. Normocephalic. No temporal or scalp tenderness. EYES: Scleral icterus present. No injection or drainage. ENT: Nose without bleeding, purulent drainage or septal hematoma. Airway patent. NECK: Trachea midline. No JVD CARDIOVASCULAR: S1S2, regular rhythm without murmurs, gallops, or rubs. RESPIRATORY: Bilaterally decreased air entry. GASTROINTESTINAL: Abdomen distended, non tender, (+) large ascites. Bowel sounds presents. No rebound. No guarding. MUSCULOSKELETAL: Extremities without clubbing, cyanosis. Mild bilateral lower extremity 1+ pitting edema.. No calf tenderness. NEUROLOGICAL: Awake and alert.Motor and sensory grossly within normal limits. Normal speech. Medications and IVs Current Medications Medications (Trade) Dose Ordered Sig/Doc Route Start Time Stop Time Status Last Admin (Lasix) 40 mg DAILY PO 05/21/16 09:00 05/24/16 09:07 (Protonix) 40 mg DAILY PO 05/21/16 09:00 05/24/16 09:06 (TRENtal SR) 400 mg Q8H PO 05/20/16 22:00 05/24/16 21:36 (Mephyton) 5 mg DAILY PO 05/21/16 09:00 05/23/16 09:24 (KCl) 20 meq DAILY PO 05/21/16 09:00 05/24/16 09:07 (K-Phos Neutral) 250 mg Q6HR PO 05/21/16 00:00 05/24/16 22:39 (Xifaxan) 550 mg BID PO 05/20/16 21:00 05/24/16 21:36 (Aldactone) 100 mg DAILY PO 05/21/16 09:00 05/24/16 09:07 (Vitamin B1) 100 mg DAILY PO 05/21/16 09:00 05/24/16 09:07 (Narcan Inj) 0.4 mg UNSCH PRN IV 05/20/16 20:15 Magnesium Oxide 400 mg 400 mg DAILY PO 05/21/16 09:00 05/24/16 09:07 (Zosyn 4.5 Gm Premix) 100 ml @ 200 mls/hr Q6H IV 05/20/16 23:00 05/24/16 22:44 (NS Flush) 2 ml UNSCH PRN IV FLUSH 05/21/16 00:45 05/24/16 00:29 (NS Flush) 2 ml BID IV FLUSH 05/21/16 09:00 05/24/16 21:36 (Ativan) 1 mg Q4H PRN PO 05/21/16 00:45 (Ativan Inj) 1 mg Q4H PRN IV PUSH 05/21/16 00:45 05/22/16 12:31 (Ativan) 2 mg Q2H PRN PO 05/21/16 00:45 (Ativan Inj) 2 mg Q2H PRN IV PUSH 05/21/16 00:45 (Ativan Inj) 2 mg Q1H PRN IV PUSH 05/21/16 00:45 (Ativan Inj) 2 mg Q15M PRN IV PUSH 05/21/16 00:45 (Flagyl) 500 mg Q8HR PO 05/21/16 22:00 05/24/16 21:36 (Lactinex) 1 tab TID PO 05/21/16 18:00 05/24/16 17:03 (Morphine Inj) 2 mg Q4HR PRN IV PUSH 05/21/16 22:30 05/24/16 19:36 (K-Phos Neutral) 250 mg Q8HR PO 05/24/16 14:00 05/24/16 21:36 A/P Problem List: (1) Sepsis ICD Code: A41.9 Status: Acute Plan: Patient admitted to the medical floor Continue IV antibiotics as per ID ua negative, x-ray showed mild interstitial prominence, lingular subsegmental atelectasis ? intraabdominal source - continue IV Zosyn and po Flagyl. Id consulted - appreciated Blood cultures negative to date. Patient's tachycardia improving, the patient still febrile. Gallium scan for fever of unknown origin workup. Psotive RF and elevated FRED persistent diarrhea (2) Abdominal pain ICD Code: R10.9 Status: Acute Plan: HIDA not completed. Patient refused scan. 05/24/16 abdominal pain improving. (3) Ascites ICD Code: R18.8 Status: Acute Plan: abdomen soft, fu GI recommendations Continue diuretics - lasix and spironolactone. (4) Liver cirrhosis ICD Code: K74.60 Status: Resolved Plan: Liver cirrhosis. Pt was recently hospitalized earlier this month and had MELD score 23 at that time. Has not had PT/INR during this hospitalization. 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 She quit drinking at that time. However she started drinking again about 6 months ago, 3-4 beers per day up until her hospitalization earlier this month. Hepatitis panel negative, FRED negative. AMA <20.0. ASMA negative. Alpha antitrypsin 129, Ceruloplasmin 17. AFP 2.2. - Ascites, mild, not tense. Spironolactone. Lasix (5) Leukopenia ICD Code: D72.819 Status: Resolved Plan: Likely secondary to sepsis. Now resolved. Continue to monitor CBC with differential. (6) Thrombocytopenia ICD Code: D69.6 Status: Acute Plan: chronic. Likely secondary to liver disease and acute illness. Platelets slightly improved up to 72. Continue to monitor platelets. (7) Hyponatremia ICD Code: E87.1 Status: Chronic Plan: Due to hypovolemic hyponatremia. Sodium stable at 133. 05/24/16 stable at 133. Hypervolemic hyponatremia. Continue oral diuretics (8) Hypomagnesemia ICD Code: E83.42 Status: Acute Plan: Likely secondary to decreased oral intake. Continue to monitor and replace as needed. (9) Hypophosphatemia ICD Code: E83.39 Status: Acute Plan: likely due to nutritional deficiency. Replace orally and monitor (10) Coagulopathy ICD Code: D68.9 Status: Acute Plan: Due to liver disease. Monitor PT/INR. No signs of bleeding. Continue vitamin k. (11) Diarrhea ICD Code: R19.7 Status: Chronic Plan: still persistent. Rare WBC on stool WBC. stool Giardia antigen and Criptosporidium pending Gi following Check HIV screen Problem Qualifiers (1) Sepsis: Qualified Code: A41.9 - Sepsis, due to unspecified organism (2) Abdominal pain: Qualified Code: R10.11 - Right upper quadrant abdominal pain (3) Ascites: Qualified Code: K70.31 - Ascites due to alcoholic cirrhosis (4) Liver cirrhosis: Qualified Code: K70.31 - Alcoholic cirrhosis of liver with ascites Clark Bernabe MD May 24, 2016 21:08
[2016-05-25] VITALS (8 sets, daily range): BP systolic 105–145; BP diastolic 57–77; PULSE 65–89; RESP 18–20; TEMP 98–99.3; O2SAT 96–100
[2016-05-25] MEDS: MORPHINE SULFATE 4 MG/ML INJ IV PUSH PRN ×3 (00:34→19:31)
[2016-05-25] MEDS: PIPERACIL-TAZO 4.5 GM PREMIX 100 ML IV SCH ×4 (05:59→22:50)
[2016-05-25] MEDS: POTASSIUM PHOSPHATE/SODIUM PHOSPHATE 250 MG TAB PO SCH ×7 (06:09→22:50)
[2016-05-25] MEDS: PENTOXIFYLLINE 400 MG CONTROLLED RELEASE TAB PO SCH ×3 (06:10→20:07)
[2016-05-25] MEDS: metroNIDAZOLE 500 MG TAB PO SCH ×3 (06:10→22:50)
[2016-05-25 09:08] LABS: BASOPHIL % 0.6 % (0.0-2.0); EOSINOPHIL % 0.8 % (0.0-4.0); HEMATOCRIT 26.8 % (35.0-46.0); LYMPH % 17.3 % (9.0-44.0); LYMPHOCYTE # 0.8 TH/MM3 (1.0-4.8); MEAN CELL VOLUME 94.9 FL (80.0-100.0); MEAN CORPUSCULAR HEMOGLOBIN 32.3 PG (27.0-34.0); MONO % 15.8 % (0.0-8.0); NEUT % 65.5 % (16.0-70.0); PLATELET COUNT 75 TH/MM3 (150-450); RED BLOOD COUNT 2.83 MIL/MM3 (4.00-5.30); RED CELL DISTRIBUTION WIDTH 22.3 % (11.6-17.2); WHITE BLOOD COUNT 4.6 TH/MM3 (4.0-11.0)
[2016-05-25 09:17] LABS: HEMO FLAGS AUTO DIFF
[2016-05-25 09:46] LABS: ACANTHOCYTES OCC (NORMAL); OVALOCYTES 1+ (NORMAL)
[2016-05-25 09:47] LABS: PLATELET ESTIMATE SMEAR LOW (NORMAL); PLATELET MORPHOLOGY NORMAL (NORMAL); SCAN/DIFF AUTO DIFF CONFIRMED
[2016-05-25 09:48] LABS: BICARBONATE 21.3 MEQ/L (21.0-32.0); POTASSIUM 3.5 MEQ/L (3.5-5.1); TOTAL BILIRUBIN ADULT 6.4 MG/DL (0.2-1.0)
[2016-05-25 09:56] LABS: CALCIUM-PROTEIN CORRECTED 7.3 MG/DL (8.5-10.1)
--- NOTE | 2016-05-25 10:00 | HHI.IDPN ---
Subjective Subjective Remarks Notes reviewed Temps spikes lesser Still with frequent BM Cultures are negative Gallium scan still pending ESR 55 CRP only 1.6 Antibiotics Zosyn Flagyl Lines PIV Past Medical History Liver cirrhosis Esophageal varices, previous banding Portal hypertension Hypertension History of MRSA pneumonia Anemia Thrombocytopenia secondary to cirrhosis History of acalculous cholecystitis, has had tube cholecystostomy done in the past Past Surgical History Wiring of her jaw Previous tube cholecystostomy placement Esophageal variceal banding Abdominal paracenteses Endoscopies Allergies: Coded Allergies: Levofloxacin (Verified Allergy, Severe, Rash, 05/20/16) *MDRO Multi-Drug Resistant Organism (Verified Adverse Reaction, Unknown, MRSA, 05/21/16) MRSA (sputum) - 04/12/10 MRSA (wound) - 12/09/07 Objective . Vital Signs Date Time Temp Pulse Resp B/P Pulse Ox O2 Delivery O2 Flow Rate FiO2 05/25/16 08:00 98.0 87 20 112/70 97 05/25/16 04:53 89 05/25/16 04:00 98.7 88 20 105/61 96 05/25/16 00:00 98.6 88 20 115/77 99 05/24/16 21:45 Room Air 05/24/16 20:00 100.6 90 16 107/54 99 05/24/16 16:00 98.1 85 18 113/64 98 05/24/16 12:00 98.3 86 18 151/61 98 05/24/16 05/24/16 05/25/16 14:59 22:59 06:59 Intake Total 1200 ml 220 ml 240 ml Balance 1200 ml 220 ml 240 ml Intake Oral 1200 ml 220 ml 240 ml # Voids 1 2 # Bowel Movements 1 2 . Laboratory Tests Test 05/24/16 05/25/16 05:55 08:25 White Blood Count 6.1 TH/MM3 4.6 TH/MM3 Red Blood Count 2.81 MIL/MM3 2.83 MIL/MM3 Hemoglobin 9.2 GM/DL 9.1 GM/DL Hematocrit 27.1 % 26.8 % Mean Corpuscular Volume 96.4 FL 94.9 FL Mean Corpuscular Hemoglobin 32.6 PG 32.3 PG Mean Corpuscular Hemoglobin 33.8 % 34.0 % Concent Red Cell Distribution Width 22.5 % 22.3 % Platelet Count 72 TH/MM3 75 TH/MM3 Mean Platelet Volume 12.3 FL 11.1 FL Neutrophils (%) (Auto) 60.9 % 65.5 % Lymphocytes (%) (Auto) 20.4 % 17.3 % Monocytes (%) (Auto) 17.1 % 15.8 % Eosinophils (%) (Auto) 1.0 % 0.8 % Basophils (%) (Auto) 0.6 % 0.6 % Neutrophils # (Auto) 3.7 TH/MM3 3.0 TH/MM3 Lymphocytes # (Auto) 1.2 TH/MM3 0.8 TH/MM3 Monocytes # (Auto) 1.0 TH/MM3 0.7 TH/MM3 Eosinophils # (Auto) 0.1 TH/MM3 0.0 TH/MM3 Basophils # (Auto) 0.0 TH/MM3 0.0 TH/MM3 CBC Comment AUTO DIFF AUTO DIFF Differential Comment AUTO DIFF AUTO DIFF CONFIRMED CONFIRMED Platelet Estimate LOW LOW Platelet Morphology Comment NORMAL NORMAL Ovalocytes 1+ 1+ Acanthocytes 1+ OCC Laboratory Tests Test 05/24/16 05/25/16 05:55 08:25 Sodium Level 133 MEQ/L 130 MEQ/L Potassium Level 4.0 MEQ/L 3.5 MEQ/L Chloride Level 103 MEQ/L 98 MEQ/L Carbon Dioxide Level 18.6 MEQ/L 21.3 MEQ/L Anion Gap 11 MEQ/L 11 MEQ/L Blood Urea Nitrogen 6 MG/DL 5 MG/DL Creatinine 0.65 MG/DL 0.62 MG/DL Estimat Glomerular Filtration 117 ML/MIN 124 ML/MIN Rate Random Glucose 99 MG/DL 142 MG/DL Calcium Level 7.7 MG/DL 7.0 MG/DL Phosphorus Level 2.4 MG/DL Magnesium Level 1.2 MG/DL Total Bilirubin 7.2 MG/DL 6.4 MG/DL Aspartate Amino Transf 54 U/L 59 U/L (AST/SGOT) Alanine Aminotransferase 21 U/L 21 U/L (ALT/SGPT) Alkaline Phosphatase 96 U/L 99 U/L Total Protein 6.3 GM/DL 6.5 GM/DL Albumin 2.1 GM/DL 2.0 GM/DL Protein Corrected Calcium 7.3 MG/DL Imaging Hepatobiliary Scan Nuclear Medicine 05/22/16 0000 Signed Impressions: Service Date/Time: Sunday, May 22, 2016 09:30 - CONCLUSION: Patient refused the scan after the first 5 minutes. Nondiagnostic HIDA scan. Donell Bo MD Gall Bladder Ultrasound 05/21/16 0000 Signed Impressions: Service Date/Time: April 08:59 - CONCLUSION: 1. No evidence of gallstones or biliary tract obstruction. 2. There is thickening of the gallbladder wall is 7 mm with a trace of fluid around the gallbladder. This can be seen with either acute or chronic cholecystitis. This would have to be correlated with patient's physical, clinical exam and laboratory values. 3. There is increased echogenicity throughout the liver characteristic of hepatocellular disease such as cirrhosis. There is recanalization of the paraumbilical vein characteristics of cirrhosis. Donell Bo MD Abdomen Ultrasound 05/21/16 0000 Signed Impressions: Service Date/Time: April 09:17 - CONCLUSION: Trace of fluid around the liver. Donell Bo MD Chest X-Ray 05/20/16 0000 Signed Impressions: Service Date/Time: Friday, May 20, 2016 18:04 - CONCLUSION: Mild interstitial prominence. Lingular subsegmental atelectasis. Andrew Rowe MD Abdomen/Pelvis CT 05/20/16 0000 Signed Impressions: Service Date/Time: Friday, May 20, 2016 18:40 - CONCLUSION: 1. Cirrhosis and portal hypertension stigmata as described above. 2. Gallbladder wall thickening/edema noted and associated ascites. 3. Left adnexal cyst. Andrew Rowe MD Physical Exam GENERAL: awake and alert,NAD SKIN: Warm and dry. No generalized rash HEENT: Pupils equal round and reactive. No petechia or hemorrhage. Has scleral icterus. No injection or drainage. Moist oral mucosa. NECK: Trachea midline. No JVD or lymphadenopathy. Supple, nontender, no meningeal signs. CARDIOVASCULAR: Regular rate and rhythm without gallops, or rubs. Has a soft murmur on the left sternal border. RESPIRATORY: Clear to auscultation. Breath sounds equal bilaterally. Decreased breath sounds at the bases. GASTROINTESTINAL: Abdomen is protuberant, and distended, with diffuse mild tenderness, no guarding, or rebound. MUSCULOSKELETAL: Extremities without clubbing, cyanosis. Has mild pedal edema. No joint effusion, or edema noted. No calf tenderness NEUROLOGICAL: NOn-focal PSYCH: Calm and cooperative LINE: PIV with no evidence of infection Assessment & Plan Remarks IMPRESSION Febrile illness, source? - ?intraabdominal - has atelectasis - UA ok - has diarrhea, previous C diff negative, ?colitis - no obvious source - temp spike less Liver cirrhosis, previous Hx EOH abuse Pancytopenia RECOMMENDATION Continue Zosyn Continue PO Flagyl Gallium scan for FUO workup Monitor progress D/W Leslee Villagomez MD May 25, 2016 10:00
[2016-05-25] MEDS: PANTOPRAZOLE SOD 40 MG DELAYED RELEASE TAB PO SCH (10:05)
[2016-05-25] MEDS: SPIRONOLACTONE 100 MG TAB PO SCH (10:06)
[2016-05-25] MEDS: LACTOBACILLUS ACIDOPHILUS TAB PO SCH ×3 (10:06→18:20)
[2016-05-25] MEDS: MAGNESIUM OXIDE 400 MG TAB PO SCH (10:06)
[2016-05-25] MEDS: THIAMINE HCL 100 MG TAB PO SCH (10:06)
[2016-05-25] MEDS: FUROSEMIDE 40 MG TAB PO SCH (10:06)
[2016-05-25] MEDS: POTASSIUM CHLORIDE 20 MEQ CONTROLLED RELEASE TAB PO SCH (10:06)
[2016-05-25] MEDS: RIFAXIMIN 550 MG TAB PO SCH ×2 (10:06→20:07)
[2016-05-25] MEDS: SODIUM CHLORIDE 0.9% FLUSH 5 ML FLUSH IV FLUSH SCH ×2 (10:07→20:07)
[2016-05-25] MEDS: PHYTONADIONE 5 MG TAB PO SCH (10:10)
[2016-05-25] MEDS ORDERED: CALCIUM CHLORIDE INJ 2 GM in SODIUM CHLORIDE 0.9% INJ 100 ML IV ONE (11:00)
--- NOTE | 2016-05-25 14:46 | HHI.PR ---
Subjective Remarks low grade fever with a tmax of 100.6 last night patient wants to go home calcium low vital signs ok Low calcium low sodium denies cp/sob denies nausea and vomiting still has ruq pain but better than before. esr 55 crp 1.6 Objective Vitals Vital Signs Date Time Temp Pulse Resp B/P Pulse Ox O2 Delivery O2 Flow Rate FiO2 05/25/16 08:30 83 05/25/16 08:00 98.0 87 20 112/70 97 05/25/16 04:53 89 05/25/16 04:00 98.7 88 20 105/61 96 05/25/16 00:00 98.6 88 20 115/77 99 05/24/16 21:45 Room Air 05/24/16 20:00 100.6 90 16 107/54 99 05/24/16 16:00 98.1 85 18 113/64 98 I/O 05/24/16 05/24/16 05/24/16 05/25/16 05/25/16 05/25/16 07:00 15:00 23:00 07:00 15:00 23:00 Intake Total 720 ml 1200 ml 220 ml 240 ml Output Total 350 ml Balance 370 ml 1200 ml 220 ml 240 ml Intake Oral 720 ml 1200 ml 220 ml 240 ml Output Urine Total 350 ml # Voids 1 2 # Bowel Movements 0 1 2 Result Diagram: 05/25/16 0825 05/25/16 0825 Imaging Last Impressions Hepatobiliary Scan Nuclear Medicine 05/22/16 0000 Signed Impressions: Service Date/Time: Sunday, May 22, 2016 09:30 - CONCLUSION: Patient refused the scan after the first 5 minutes. Nondiagnostic HIDA scan. Donell Bo MD Gall Bladder Ultrasound 05/21/16 0000 Signed Impressions: Service Date/Time: April 08:59 - CONCLUSION: 1. No evidence of gallstones or biliary tract obstruction. 2. There is thickening of the gallbladder wall is 7 mm with a trace of fluid around the gallbladder. This can be seen with either acute or chronic cholecystitis. This would have to be correlated with patient's physical, clinical exam and laboratory values. 3. There is increased echogenicity throughout the liver characteristic of hepatocellular disease such as cirrhosis. There is recanalization of the paraumbilical vein characteristics of cirrhosis. Donell Bo MD Abdomen Ultrasound 05/21/16 0000 Signed Impressions: Service Date/Time: April 09:17 - CONCLUSION: Trace of fluid around the liver. Donell Bo MD Chest X-Ray 05/20/16 0000 Signed Impressions: Service Date/Time: Friday, May 20, 2016 18:04 - CONCLUSION: Mild interstitial prominence. Lingular subsegmental atelectasis. Andrew Rowe MD Abdomen/Pelvis CT 05/20/16 0000 Signed Impressions: Service Date/Time: Friday, May 20, 2016 18:40 - CONCLUSION: 1. Cirrhosis and portal hypertension stigmata as described above. 2. Gallbladder wall thickening/edema noted and associated ascites. 3. Left adnexal cyst. Andrew Rowe MD Objective Remarks GENERAL: This is a chronically ill patient, in nad SKIN: Superficial ecchymosis. Spider angiomata. HEAD: Atraumatic. Normocephalic. No temporal or scalp tenderness. EYES: Scleral icterus present. No injection or drainage. ENT: Nose without bleeding, purulent drainage or septal hematoma. Airway patent. NECK: Trachea midline. No JVD CARDIOVASCULAR: S1S2, regular rhythm without murmurs, gallops, or rubs. RESPIRATORY: Bilaterally decreased air entry. GASTROINTESTINAL: Abdomen distended, non tender, (+) large ascites. Bowel sounds presents. No rebound. No guarding. MUSCULOSKELETAL: Extremities without clubbing, cyanosis. Mild bilateral lower extremity 1+ pitting edema.. No calf tenderness. NEUROLOGICAL: Awake and alert.Motor and sensory grossly within normal limits. Normal speech. Medications and IVs Current Medications Medications (Trade) Dose Ordered Sig/Doc Route Start Time Stop Time Status Last Admin (Lasix) 40 mg DAILY PO 05/21/16 09:00 05/25/16 10:06 (Protonix) 40 mg DAILY PO 05/21/16 09:00 05/25/16 10:05 (TRENtal SR) 400 mg Q8H PO 05/20/16 22:00 05/25/16 06:10 (Mephyton) 5 mg DAILY PO 05/21/16 09:00 05/25/16 10:10 (KCl) 20 meq DAILY PO 05/21/16 09:00 05/25/16 10:06 (K-Phos Neutral) 250 mg Q6HR PO 05/21/16 00:00 05/25/16 06:09 (Xifaxan) 550 mg BID PO 05/20/16 21:00 05/25/16 10:06 (Aldactone) 100 mg DAILY PO 05/21/16 09:00 05/25/16 10:06 (Vitamin B1) 100 mg DAILY PO 05/21/16 09:00 05/25/16 10:06 (Narcan Inj) 0.4 mg UNSCH PRN IV 05/20/16 20:15 Magnesium Oxide 400 mg 400 mg DAILY PO 05/21/16 09:00 05/25/16 10:06 (Zosyn 4.5 Gm Premix) 100 ml @ 200 mls/hr Q6H IV 05/20/16 23:00 05/25/16 10:10 (NS Flush) 2 ml UNSCH PRN IV FLUSH 05/21/16 00:45 05/24/16 00:29 (NS Flush) 2 ml BID IV FLUSH 05/21/16 09:00 05/25/16 10:07 (Ativan) 1 mg Q4H PRN PO 05/21/16 00:45 (Ativan Inj) 1 mg Q4H PRN IV PUSH 05/21/16 00:45 05/22/16 12:31 (Ativan) 2 mg Q2H PRN PO 05/21/16 00:45 (Ativan Inj) 2 mg Q2H PRN IV PUSH 05/21/16 00:45 (Ativan Inj) 2 mg Q1H PRN IV PUSH 05/21/16 00:45 (Ativan Inj) 2 mg Q15M PRN IV PUSH 05/21/16 00:45 (Flagyl) 500 mg Q8HR PO 05/21/16 22:00 05/25/16 06:10 (Lactinex) 1 tab TID PO 05/21/16 18:00 05/25/16 10:06 (Morphine Inj) 2 mg Q4HR PRN IV PUSH 05/21/16 22:30 05/25/16 00:34 (K-Phos Neutral) 250 mg Q8HR PO 05/24/16 14:00 05/25/16 06:09 Urinary Catheter: No Vascular Central Line Catheter: No A/P Problem List: (1) Sepsis ICD Code: A41.9 Status: Acute Plan: Patient admitted to the medical floor Continue IV antibiotics as per ID ua negative, x-ray showed mild interstitial prominence, lingular subsegmental atelectasis ? intraabdominal source - continue IV Zosyn and po Flagyl. Id consulted - appreciated Blood cultures negative to date. Patient's tachycardia improving, the patient still febrile. Gallium scan for fever of unknown origin workup. Elevated rhematoid factor and positive RF screen. FRED screen pending persistent diarrhea Nuclear scan pending (2) Abdominal pain ICD Code: R10.9 Status: Acute Plan: HIDA not completed. Patient refused scan. 05/24/16 abdominal pain improving. (3) Ascites ICD Code: R18.8 Status: Acute Plan: abdomen soft, fu GI recommendations Continue diuretics - lasix and spironolactone. (4) Liver cirrhosis ICD Code: K74.60 Status: Resolved Plan: Liver cirrhosis. Pt was recently hospitalized earlier this month and had MELD score 23 at that time. Has not had PT/INR during this hospitalization. 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 She quit drinking at that time. However she started drinking again about 6 months ago, 3-4 beers per day up until her hospitalization earlier this month. Hepatitis panel negative, FRED negative. AMA <20.0. ASMA negative. Alpha antitrypsin 129, Ceruloplasmin 17. AFP 2.2. - Ascites, mild, not tense. Spironolactone. Lasix - T bili 6.4, AST 59, ALT 21 - GI following. Continue pentoxifylline, rifaximin (5) Leukopenia ICD Code: D72.819 Status: Resolved Plan: Likely secondary to sepsis. Now resolved. Continue to monitor CBC with differential. (6) Thrombocytopenia ICD Code: D69.6 Status: Acute Plan: chronic. Likely secondary to liver disease and acute illness. Platelets slightly improved up to 72. Continue to monitor platelets. (7) Hyponatremia ICD Code: E87.1 Status: Chronic (8) Hypomagnesemia ICD Code: E83.42 Status: Acute Plan: Likely secondary to decreased oral intake. Continue to monitor and replace as needed. (9) Hypophosphatemia ICD Code: E83.39 Status: Acute (10) Coagulopathy ICD Code: D68.9 Status: Acute Plan: Due to liver disease. Monitor PT/INR. No signs of bleeding. Continue vitamin k. (11) Diarrhea ICD Code: R19.7 Status: Chronic Plan: still persistent. Rare WBC on stool WBC. stool Giardia antigen and Criptosporidium pending Gi following Check HIV screen ---> confirmatory test in process Assessment and Plan DVT prophylaxis: SCD's, no chemical prophylaxis due to high risk of bleeding secondary to coagulopathy and Marcus cytopenia. Problem Qualifiers (1) Sepsis: Qualified Code: A41.9 - Sepsis, due to unspecified organism (2) Abdominal pain: Qualified Code: R10.11 - Right upper quadrant abdominal pain (3) Ascites: Qualified Code: K70.31 - Ascites due to alcoholic cirrhosis (4) Liver cirrhosis: Qualified Code: K70.31 - Alcoholic cirrhosis of liver with ascites Clark Bernabe MD May 25, 2016 14:46
--- NOTE | 2016-05-25 16:11 | HHI.HCPN ---
Reason for visit a. To assist with evaluation and management of symptoms including: Encephalopathy, dyspnea b. To assist medical decision maker(s) with: better understanding of current medical conditions; weighing benefits/burdens of medical treatment options; making medical treatment decisions. (Christy Baxter) Subjective/Interval History Patient seen today to follow-up on comfort, goals. Stable, uneventful weekend. Continues to have loose stools. CBC stable significant changes. No significant changes in chemistry values sodium remains low. LFTs not significantly changed. HIDA scan, WBC gallium scan still pending --patient was not able to completely HIDA scan and attempt last Wednesday. Still on clear liquid diet. Palliative received voicemail yesterday from family with questions regarding advancing diet. Additional stool cultures negative. Blood cultures from 05/21 with no growth to date. HIV 1, 2 antibody ordered by medical attending, + reactive, HIV 1, 2 pending. Pt seen in room no visitors present. She is eating Jell-O. She does have the remnants of a fast food type wrapper stripper in her bed. She is alert and oriented fairly insightful to hospitalization course thus far. Looks much better than when I saw her last week. continues to endorse loose stools though indicates that she has had that type bowel movement for most of her life. Endorses abdominal pain has improved it is still localized to right upper quadrant region however is not causing her much discomfort at this time. No dyspnea. No nausea. No vomiting. No other complaints. Really wants to go home, feels she has duties that she needs to attend to with her family. Also really wants to eat regular food. Discussed with her concerns regarding cholecystitis and recommended testing, she indicates that she has claustrophobia and has difficulty sitting in the machine for that long a time. She indicates she would be open to trying it again with more anxiety medicine on board, I did discuss with her risks and benefits of sedating for a test, also discuss with her that if she left the hospital without completion and findings of the cause of her illness that she would likely end of returning to the hospital still ill. Her family arrived shortly during this discussion spoke with daughter at bedside with patient regarding all the above. All questions answered. Patient is agreement to continue hospitalization for another day or so in order to try to find additional information regarding her conditions. Discussed with medical attending as well as GI. Diet to be advanced to regular , soft, low fat. . (Christy Baxter) Advance Directives Living Will: Never completed Health Care Surrogate: Never completed Durable Power of Acquisition Cost Estimator: Never completed (Christy Baxter) Objective Vital Signs Date Time Temp Pulse Resp B/P Pulse Ox O2 Delivery O2 Flow Rate FiO2 05/25/16 08:30 83 05/25/16 08:00 98.0 87 20 112/70 97 05/25/16 04:53 89 05/25/16 04:00 98.7 88 20 105/61 96 05/25/16 00:00 98.6 88 20 115/77 99 05/24/16 21:45 Room Air 05/24/16 20:00 100.6 90 16 107/54 99 Intake & Output 05/25/16 05/25/16 07:00 19:00 Intake Total 460 ml Balance 460 ml Intake Oral 460 ml # Voids 3 # Bowel Movements 3 Physical Exam CONSTITUTIONAL/GENERAL: Jaundiced, awake, pleasant patient, brighter than last week when I saw her TUBES/LINES/DRAINS: Peripheral IV 2 right upper extremity SKIN:+ jaundice. No rashes, or lesions. Skin temperature appropriate. Multiple telangiectasias to lower extremities, trunk. CARDIOVASCULAR: Regular rate and rhythm, no murmurs. Peripheral pulses symmetric. RESPIRATORY/CHEST: Symmetric, unlabored respirations on room air. Clear to auscultation. Breath sounds equal bilaterally. GASTROINTESTINAL: Abdomen soft, distended, mildly tender to right upper quadrant. +hepatosplenomegaly. Bowel sounds normoactive. NEUROLOGICAL: Awake, oriented 3. Insight fair to good. Cooperative. Moves all 4 extremities. PSYCHIATRIC: No obvious anxiety/depression . (Christy Baxter) Diagnostic Tests Laboratory Laboratory Tests Test 05/23/16 05/24/16 05/25/16 16:35 05:55 08:25 Nasal Screen MRSA (PCR) NEGATIVE (NEGATIVE) White Blood Count 6.1 TH/MM3 4.6 TH/MM3 (4.0-11.0) (4.0-11.0) Red Blood Count 2.81 MIL/MM3 2.83 MIL/MM3 (4.00-5.30) (4.00-5.30) Hemoglobin 9.2 GM/DL 9.1 GM/DL (11.6-15.3) (11.6-15.3) Hematocrit 27.1 % 26.8 % (35.0-46.0) (35.0-46.0) Mean Corpuscular Volume 96.4 FL 94.9 FL (80.0-100.0) (80.0-100.0) Mean Corpuscular Hemoglobin 32.6 PG 32.3 PG (27.0-34.0) (27.0-34.0) Mean Corpuscular Hemoglobin 33.8 % 34.0 % Concent (32.0-36.0) (32.0-36.0) Red Cell Distribution Width 22.5 % 22.3 % (11.6-17.2) (11.6-17.2) Platelet Count 72 TH/MM3 75 TH/MM3 (150-450) (150-450) Mean Platelet Volume 12.3 FL 11.1 FL (7.0-11.0) (7.0-11.0) Neutrophils (%) (Auto) 60.9 % 65.5 % (16.0-70.0) (16.0-70.0) Lymphocytes (%) (Auto) 20.4 % 17.3 % (9.0-44.0) (9.0-44.0) Monocytes (%) (Auto) 17.1 % 15.8 % (0.0-8.0) (0.0-8.0) Eosinophils (%) (Auto) 1.0 % (0.0-4.0) 0.8 % (0.0-4.0) Basophils (%) (Auto) 0.6 % (0.0-2.0) 0.6 % (0.0-2.0) Neutrophils # (Auto) 3.7 TH/MM3 3.0 TH/MM3 (1.8-7.7) (1.8-7.7) Lymphocytes # (Auto) 1.2 TH/MM3 0.8 TH/MM3 (1.0-4.8) (1.0-4.8) Monocytes # (Auto) 1.0 TH/MM3 0.7 TH/MM3 (0-0.9) (0-0.9) Eosinophils # (Auto) 0.1 TH/MM3 0.0 TH/MM3 (0-0.4) (0-0.4) Basophils # (Auto) 0.0 TH/MM3 0.0 TH/MM3 (0-0.2) (0-0.2) CBC Comment AUTO DIFF AUTO DIFF Differential Comment AUTO DIFF AUTO DIFF CONFIRMED CONFIRMED Platelet Estimate LOW (NORMAL) LOW (NORMAL) Platelet Morphology Comment NORMAL NORMAL (NORMAL) (NORMAL) Ovalocytes 1+ (NORMAL) 1+ (NORMAL) Acanthocytes 1+ (NORMAL) OCC (NORMAL) Sodium Level 133 MEQ/L 130 MEQ/L (136-145) (136-145) Potassium Level 4.0 MEQ/L 3.5 MEQ/L (3.5-5.1) (3.5-5.1) Chloride Level 103 MEQ/L 98 MEQ/L (98-107) (98-107) Carbon Dioxide Level 18.6 MEQ/L 21.3 MEQ/L (21.0-32.0) (21.0-32.0) Anion Gap 11 MEQ/L (5-15) 11 MEQ/L (5-15) Blood Urea Nitrogen 6 MG/DL (7-18) 5 MG/DL (7-18) Creatinine 0.65 MG/DL 0.62 MG/DL (0.50-1.00) (0.50-1.00) Estimat Glomerular Filtration 117 ML/MIN 124 ML/MIN Rate (>89) (>89) Random Glucose 99 MG/DL 142 MG/DL (74-106) (74-106) Calcium Level 7.7 MG/DL 7.0 MG/DL (8.5-10.1) (8.5-10.1) Phosphorus Level 2.4 MG/DL (2.5-4.9) Magnesium Level 1.2 MG/DL (1.5-2.5) Total Bilirubin 7.2 MG/DL 6.4 MG/DL (0.2-1.0) (0.2-1.0) Aspartate Amino Transf 54 U/L (15-37) 59 U/L (15-37) (AST/SGOT) Alanine Aminotransferase 21 U/L (10-53) 21 U/L (10-53) (ALT/SGPT) Alkaline Phosphatase 96 U/L (45-117) 99 U/L (45-117) Total Protein 6.3 GM/DL 6.5 GM/DL (6.4-8.2) (6.4-8.2) Albumin 2.1 GM/DL 2.0 GM/DL (3.4-5.0) (3.4-5.0) Protein Corrected Calcium 7.3 MG/DL (8.5-10.1) HIV (1&2) Antibody REFLEX (NEGATIVE) (Christy Baxter) Result Diagram: 05/25/1682405/25/1625 Imaging Last Impressions Hepatobiliary Scan Nuclear Medicine 05/22/16 0000 Signed Impressions: Service Date/Time: Sunday, May 22, 2016 09:30 - CONCLUSION: Patient refused the scan after the first 5 minutes. Nondiagnostic HIDA scan. Donell Bo MD Gall Bladder Ultrasound 05/21/16 0000 Signed Impressions: Service Date/Time: April 08:59 - CONCLUSION: 1. No evidence of gallstones or biliary tract obstruction. 2. There is thickening of the gallbladder wall is 7 mm with a trace of fluid around the gallbladder. This can be seen with either acute or chronic cholecystitis. This would have to be correlated with patient's physical, clinical exam and laboratory values. 3. There is increased echogenicity throughout the liver characteristic of hepatocellular disease such as cirrhosis. There is recanalization of the paraumbilical vein characteristics of cirrhosis. Donell Bo MD Abdomen Ultrasound 05/21/16 0000 Signed Impressions: Service Date/Time: April 09:17 - CONCLUSION: Trace of fluid around the liver. Donell Bo MD Chest X-Ray 05/20/16 0000 Signed Impressions: Service Date/Time: Friday, May 20, 2016 18:04 - CONCLUSION: Mild interstitial prominence. Lingular subsegmental atelectasis. Andrew Rowe MD Abdomen/Pelvis CT 05/20/16 0000 Signed Impressions: Service Date/Time: Friday, May 20, 2016 18:40 - CONCLUSION: 1. Cirrhosis and portal hypertension stigmata as described above. 2. Gallbladder wall thickening/edema noted and associated ascites. 3. Left adnexal cyst. Andrew Rowe MD Procedures Plan for ultrasound-guided paracentesis 05/21 (Christy Baxter) Assessment and Plan Disease Oriented Problem List: (1) Ascites (2) Liver cirrhosis (3) Colitis (4) Sepsis (5) UTI (urinary tract infection) (6) End stage liver disease (7) Abdominal pain (8) Anemia (9) Hyponatremia Symptom Scale: (1) Pain, abdominal (2) Dyspnea (3) Nausea (4) Encephalopathy Pertinent Non-Medical Issues Psychosocial:Originally from [place] though has lived in [place] for much of her life. Has not worked for many years, has been on disability due to medical issues. Not . Supported by one adult son Blade, one adult daughter Teagan. Priors most recent hepatic issues had been doing well, functionally independent, enjoying socializing with friends and family. Spiritual: Legal: Patient mental status fluctuates secondary to medical conditions. She is oriented and appropriate at times though insight also appears to fluctuate. Would be best supported in decision-making by healthcare proxy. Not . Has 2 adult children who would be legal HCP per [place] statutes. Ethical issues impacting care: Important Contacts Teagan Rosenthal (Daughter) [phone] Son Blade- . Prognosis This patient presented for recurrent abdominal pain and fever, findings of sepsis, probable cholecystitis. was recently discharged one week ago for acute hospitalization for acute alcoholic liver disease. Patient continues to have associated issues including abdominal pain, ascites, thrombocytopenia, ? cholecystitis. If she continues to drink, she will likely continue to experience complications related to end-stage liver disease, limited life expectancy, appropriate for hospice if goals are compatible. However, if she abstains from alcohol, still possible her liver function can stabilize and she could live for many years. . Code Status: Full Code Plan * Legal decision maker:Patient mental status fluctuates secondary to medical conditions. She is oriented and appropriate at times though insight also appears to fluctuate. Would be best supported in decision-making by healthcare proxy. Not . Has 2 adult children who would be legal HCP per [place] statutes. * Goals: patient has expressed aggressive goals thus far. 05/21/16 Met with son and daughter at length at bedside, patient slept for much of this meeting. Goals are aggressive, they are supportive of trying to get patient through this acute issue and back to the stability that she had prior to her most recent relapse with alcohol. 05/22/16- Draft/pending/template * CODE STATUS: FULL * SYMPTOMS: --Encephalopathy: Multifactorialalcoholic encephalopathy, hepatic, sepsis. Ammonia 17. LFTs not significantly changed from most recent discharge. Patient more awake today. may continue to fluctuate --Dyspnea: Presented with shortness of breath, likely secondary to ascites, has recently required paracentesis for drainage. Denies dyspnea today. We'll continue to evaluate. --Abdominal pain: Patient endorses ongoing right upper quadrant abdominal pain since admission 1 week ago; companied by nausea. Ultrasound gallbladder negative for obstruction however does show some wall thickening,? Cholecystitis. Further workup pending, HIDA scan was ordered and attempted earlier today--patient may require cholecystostomy tube. Patient was unable to complete exam due to frequent bowel movements and anxiety. Could consider one time dose benzodiazepine to assist with anxiety component however this would be done cautiously given patient's altered mental status and significantly impaired hepatic function--at risk for worsening mental status and further clinical deterioration with sedation/lethargy. Has PRN PO ativan available, nursing gave 1mg dose today (after aborted scan) which pt appeared to tolerate well. has 2mg morphine PRN available-- cautious use of any opiates due to liver disease and fluctuating mental status and aggressive goals. --Nausea: Intermittent nausea with abdominal pain, no vomiting. Possible cholecystitis. Consider adding prn Zofran, reduced dose for hepatic impairment. * Palliative care will continue to follow during hospital course as condition evolves, to assist patient/decision-maker with understanding of medical conditions, weighing benefits/burdens of treatment options, for clarification of goals of treatment. Additionally will assist with any symptoms of palliative concern (Christy Baxter) Time Spent Total Floor Time (mins): 30 >50% Counseling/Coord of Care: Yes (d/w medical attending) (Christy Baxter) Attestation To help prompt me to consider important information that might be impacting today's encounter and assessment, information from prior notes written by myself or my colleagues may have been "brought forward" into today's note. My signature on this note, however, is an attestation that I personally performed the exam, history, and/or decision-making noted today, and, unless otherwise indicated, the interactions with patient, family, and staff as well as the review of records all occurred today. I also attest that the listed assessment and stated plan reflect my best clinical judgment today based on the combination of historical information, prior notes, and today's exam/ interactions. When time spent is documented, it refers only to time spent today by the signer, or if indicated, combined time spent today by collaborating physician/nurse practitioner. (Christy Baxter) Collaborating MD Comments Chart reviewed. Case discussed with palliative care DIRECTOR OF ACADEMIC SUPPORT. Above note reviewed and I concur. . (Yann Bryant MD) Christy Baxter May 25, 2016 16:11 aYnn Bryant MD Jun 04, 2016 17:38
[2016-05-26] MEDS: MORPHINE SULFATE 4 MG/ML INJ IV PUSH PRN ×3 (00:09→21:18)
[2016-05-26] MEDS: PIPERACIL-TAZO 4.5 GM PREMIX 100 ML IV SCH ×4 (05:45→21:10)
[2016-05-26] MEDS: PENTOXIFYLLINE 400 MG CONTROLLED RELEASE TAB PO SCH ×3 (05:46→21:10)
[2016-05-26] MEDS: POTASSIUM PHOSPHATE/SODIUM PHOSPHATE 250 MG TAB PO SCH ×6 (05:46→21:10)
[2016-05-26] MEDS: metroNIDAZOLE 500 MG TAB PO SCH ×3 (05:46→21:09)
[2016-05-26 06:41] VITALS: PULSE 85
[2016-05-26 08:00] VITALS: BP 103/62; PULSE 88; RESP 20; TEMP 97.2; O2SAT 97
[2016-05-26] MEDS ORDERED: LORazepam 2 MG/ML VIAL IV ONE (08:15)
[2016-05-26] MEDS: SODIUM CHLORIDE 0.9% FLUSH 5 ML FLUSH IV FLUSH SCH ×2 (09:00→21:00)
[2016-05-26] MEDS: SPIRONOLACTONE 100 MG TAB PO SCH (09:00)
[2016-05-26] MEDS: LACTOBACILLUS ACIDOPHILUS TAB PO SCH ×3 (09:00→18:00)
[2016-05-26] MEDS: PANTOPRAZOLE SOD 40 MG DELAYED RELEASE TAB PO SCH (11:01)
[2016-05-26] MEDS: POTASSIUM CHLORIDE 20 MEQ CONTROLLED RELEASE TAB PO SCH (11:01)
[2016-05-26] MEDS: MAGNESIUM OXIDE 400 MG TAB PO SCH (11:01)
[2016-05-26] MEDS: RIFAXIMIN 550 MG TAB PO SCH ×2 (11:01→21:00)
[2016-05-26] MEDS: THIAMINE HCL 100 MG TAB PO SCH (11:01)
[2016-05-26] MEDS: FUROSEMIDE 40 MG TAB PO SCH (11:02)
--- NOTE | 2016-05-26 11:22 | RADRPT ---
EXAM DATE/TIME: 05/26/2016 10:02 [facility] COMPARISON: No previous studies available for comparison. INDICATIONS : Fever of unknown origin. DOSE: 6.0 mCi Gallium 67 Citrate IV PLANAR IMAGIN min, 3 hrs, 24 hrs, 48 hrs MEDICAL HISTORY : Methicillin-resistant Staphylococcus aureus. Hypertension. Esophageal varicies. SURGICAL HISTORY : section. ENCOUNTER: Initial ACUITY: 1 week PAIN SCALE: 2/10 LOCATION: Bilateral chest TECHNIQUE: Whole body imaging was performed at the specified times after intravenous administration of radiogal lium. FINDINGS: The examination is incomplete. Raw dynamic images were obtained. There are 30 minutes images of the u pper body which demonstrate a small area of increased activity in the anterior right chest. When trini elated with recent CT this could represent a focal right middle lobe pneumonia. CONCLUSION: Incomplete exam. However, 30 minute images do reveal a small area of increased activity at the expect ed location of the right middle lobe. When correlated with CT from May 20 differential diagnosis would include a small right middle lobe pneumonia. This is difficult to see on plain film and would be better evaluated on CT chest without contrast. Butch Walsh MD on May 26, 2016 at 11:14 Board Certified Radiologist. This report was verified electronically.
[2016-05-26 12:00] VITALS: BP 116/75; PULSE 95; RESP 20; TEMP 97.7; O2SAT 100
[2016-05-26 14:24] VITALS: TEMP 98.4
--- NOTE | 2016-05-26 14:28 | HHI.PR ---
Subjective Remarks no further fevers patient is tolerating diet patient states she could not tolerate the test still having diarrhea denies cp/sob asking when she can go home Objective Vitals Vital Signs Date Time Temp Pulse Resp B/P Pulse Ox O2 Delivery O2 Flow Rate FiO2 05/26/16 14:24 98 Room Air 05/26/16 14:24 98.4 05/26/16 12:00 97.7 95 20 116/75 100 05/26/16 08:00 97.2 88 20 103/62 97 05/26/16 06:41 85 05/25/16 20:05 Room Air 05/25/16 20:00 98.9 85 18 145/67 97 05/25/16 16:00 98.7 83 20 108/57 100 I/O 05/25/16 05/25/16 05/25/16 05/26/16 05/26/16 05/26/16 07:00 15:00 23:00 07:00 15:00 23:00 Intake Total 240 ml 360 ml Output Total 200 ml Balance 240 ml 160 ml Intake Oral 240 ml 360 ml Output Urine Total 200 ml # Voids 4 2 # Bowel Movements 2 3 Result Diagram: 05/25/16 0825 05/25/16 0825 Imaging Last Impressions Gallium Scan Nuclear Medicine 05/26/16 0000 Signed Impressions: Service Date/Time: Thursday, May 26, 2016 10:02 - CONCLUSION: Incomplete exam. However, 30 minute images do reveal a small area of increased activity at the expected location of the right middle lobe. When correlated with CT from May 20 differential diagnosis would include a small right middle lobe pneumonia. This is difficult to see on plain film and would be better evaluated on CT chest without contrast. Butch Walsh MD Hepatobiliary Scan Nuclear Medicine 05/22/16 0000 Signed Impressions: Service Date/Time: Sunday, May 22, 2016 09:30 - CONCLUSION: Patient refused the scan after the first 5 minutes. Nondiagnostic HIDA scan. Donell Bo MD Gall Bladder Ultrasound 05/21/16 0000 Signed Impressions: Service Date/Time: April 08:59 - CONCLUSION: 1. No evidence of gallstones or biliary tract obstruction. 2. There is thickening of the gallbladder wall is 7 mm with a trace of fluid around the gallbladder. This can be seen with either acute or chronic cholecystitis. This would have to be correlated with patient's physical, clinical exam and laboratory values. 3. There is increased echogenicity throughout the liver characteristic of hepatocellular disease such as cirrhosis. There is recanalization of the paraumbilical vein characteristics of cirrhosis. Donell Bo MD Abdomen Ultrasound 05/21/16 0000 Signed Impressions: Service Date/Time: April 09:17 - CONCLUSION: Trace of fluid around the liver. Donell Bo MD Chest X-Ray 05/20/16 0000 Signed Impressions: Service Date/Time: Friday, May 20, 2016 18:04 - CONCLUSION: Mild interstitial prominence. Lingular subsegmental atelectasis. Andrew Rowe MD Abdomen/Pelvis CT 05/20/16 0000 Signed Impressions: Service Date/Time: Friday, May 20, 2016 18:40 - CONCLUSION: 1. Cirrhosis and portal hypertension stigmata as described above. 2. Gallbladder wall thickening/edema noted and associated ascites. 3. Left adnexal cyst. Andrew Rowe MD Objective Remarks GENERAL: This is a chronically ill patient, in nad SKIN: Superficial ecchymosis. Spider angiomata. HEAD: Atraumatic. Normocephalic. No temporal or scalp tenderness. EYES: Scleral icterus present. No injection or drainage. ENT: Nose without bleeding, purulent drainage or septal hematoma. Airway patent. NECK: Trachea midline. No JVD CARDIOVASCULAR: S1S2, regular rhythm without murmurs, gallops, or rubs. RESPIRATORY: Bilaterally decreased air entry. GASTROINTESTINAL: Abdomen distended, non tender, (+) large ascites. Bowel sounds presents. No rebound. No guarding. MUSCULOSKELETAL: Extremities without clubbing, cyanosis. Mild bilateral lower extremity 1+ pitting edema.. No calf tenderness. NEUROLOGICAL: Awake and alert.Motor and sensory grossly within normal limits. Normal speech. Medications and IVs Current Medications Medications (Trade) Dose Ordered Sig/Doc Route Start Time Stop Time Status Last Admin (Lasix) 40 mg DAILY PO 05/21/16 09:00 05/26/16 11:02 (Protonix) 40 mg DAILY PO 05/21/16 09:00 05/26/16 11:01 (TRENtal SR) 400 mg Q8H PO 05/20/16 22:00 05/26/16 16:01 (Mephyton) 5 mg DAILY PO 05/21/16 09:00 05/26/16 16:01 (KCl) 20 meq DAILY PO 05/21/16 09:00 05/26/16 11:01 (K-Phos Neutral) 250 mg Q6HR PO 05/21/16 00:00 05/26/16 16:01 (Xifaxan) 550 mg BID PO 05/20/16 21:00 05/26/16 11:01 (Aldactone) 100 mg DAILY PO 05/21/16 09:00 05/26/16 09:00 (Vitamin B1) 100 mg DAILY PO 05/21/16 09:00 05/26/16 11:01 (Narcan Inj) 0.4 mg UNSCH PRN IV 05/20/16 20:15 Magnesium Oxide 400 mg 400 mg DAILY PO 05/21/16 09:00 05/26/16 11:01 (Zosyn 4.5 Gm Premix) 100 ml @ 200 mls/hr Q6H IV 05/20/16 23:00 05/26/16 16:01 (NS Flush) 2 ml UNSCH PRN IV FLUSH 05/21/16 00:45 05/24/16 00:29 (NS Flush) 2 ml BID IV FLUSH 05/21/16 09:00 05/26/16 09:00 (Ativan) 1 mg Q4H PRN PO 05/21/16 00:45 (Ativan Inj) 1 mg Q4H PRN IV PUSH 05/21/16 00:45 05/22/16 12:31 (Ativan) 2 mg Q2H PRN PO 05/21/16 00:45 (Ativan Inj) 2 mg Q2H PRN IV PUSH 05/21/16 00:45 (Ativan Inj) 2 mg Q1H PRN IV PUSH 05/21/16 00:45 (Ativan Inj) 2 mg Q15M PRN IV PUSH 05/21/16 00:45 (Flagyl) 500 mg Q8HR PO 05/21/16 22:00 05/26/16 16:01 (Lactinex) 1 tab TID PO 05/21/16 18:00 05/26/16 16:01 (Morphine Inj) 2 mg Q4HR PRN IV PUSH 05/21/16 22:30 05/26/16 16:04 (K-Phos Neutral) 250 mg Q8HR PO 05/24/16 14:00 05/26/16 14:00 Urinary Catheter: No Vascular Central Line Catheter: No A/P Problem List: (1) Sepsis ICD Code: A41.9 Status: Acute (2) Abdominal pain ICD Code: R10.9 Status: Acute (3) Ascites ICD Code: R18.8 Status: Acute (4) Liver cirrhosis ICD Code: K74.60 Status: Resolved (5) Leukopenia ICD Code: D72.819 Status: Resolved (6) Thrombocytopenia ICD Code: D69.6 Status: Acute (7) Hyponatremia ICD Code: E87.1 Status: Chronic (8) Hypomagnesemia ICD Code: E83.42 Status: Acute (9) Hypophosphatemia ICD Code: E83.39 Status: Acute (10) Coagulopathy ICD Code: D68.9 Status: Acute (11) Diarrhea ICD Code: R19.7 Status: Chronic Assessment and Plan (1) Sepsis Plan: Patient admitted to the medical floor Continue IV antibiotics as per ID ua negative, x-ray showed mild interstitial prominence, lingular subsegmental atelectasis ? intraabdominal source - continue IV Zosyn and po Flagyl. Id consulted - appreciated Blood cultures negative to date. Elevated rhematoid factor and positive RF screen. FRED screen pending persistent diarrhea Nuclear scan pending ----> incomplete test, signs of RML pna. (2) Abdominal pain Plan: HIDA not completed. Patient refused scan. 05/24/16 abdominal pain improving. GI following, abdominal pain improving. (3) Ascites Plan: abdomen soft, fu GI recommendations Continue diuretics - lasix and spironolactone. (4) Liver cirrhosis Plan: Liver cirrhosis. Pt was recently hospitalized earlier this month and had MELD score 23 at that time. Has not had PT/INR during this hospitalization. 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 She quit drinking at that time. However she started drinking again about 6 months ago, 3-4 beers per day up until her hospitalization earlier this month. Hepatitis panel negative, FRED negative. AMA <20.0. ASMA negative. Alpha antitrypsin 129, Ceruloplasmin 17. AFP 2.2. - Ascites, mild, not tense. Spironolactone. Lasix - T bili 6.4, AST 59, ALT 21 - GI following. Continue pentoxifylline, rifaximin (5) Leukopenia Plan: Likely secondary to sepsis. Now resolved. Continue to monitor CBC with differential. (6) Thrombocytopenia Plan: chronic. Likely secondary to liver disease and acute illness. Platelets slightly improved up to 72. Continue to monitor platelets. (7) Hyponatremia Likely hypervolemic hyponatremia. Continue diuretics. Monitor BMP. Sdium 130 today. (8) Hypomagnesemia Plan: Likely secondary to decreased oral intake. Continue to monitor and replace as needed. (9) Hypophosphatemia Likely due to nutritional deficiency. Continue oral phosphorus. Continue to monitor phosphorus and replace. (10) Coagulopathy Plan: Due to liver disease. Monitor PT/INR. No signs of bleeding. Continue vitamin k. (11) Diarrhea Plan: still persistent. Rare WBC on stool WBC. stool Giardia antigen and Criptosporidium pending Gi following Check HIV screen ---> confirmatory test in process DVT prophylaxis: SCD's, no chemical prophylaxis due to high risk of bleeding secondary to coagulopathy and thrombocytopenia. Discharge Planning Continue to monitor in the medical floor Problem Qualifiers (1) Sepsis: Qualified Code: A41.9 - Sepsis, due to unspecified organism (2) Abdominal pain: Qualified Code: R10.11 - Right upper quadrant abdominal pain (3) Ascites: Qualified Code: K70.31 - Ascites due to alcoholic cirrhosis (4) Liver cirrhosis: Qualified Code: K70.31 - Alcoholic cirrhosis of liver with ascites Clark Bernabe MD May 26, 2016 14:28
[2016-05-26 16:00] VITALS: BP 100/61; PULSE 86; RESP 20; TEMP 98; O2SAT 98
[2016-05-26] MEDS: PHYTONADIONE 5 MG TAB PO SCH (16:01)
[2016-05-26 20:27] VITALS: PULSE 73; PULSE 84
[2016-05-26 21:55] LABS: AUTOMATED NEUTROPHIL # 3.5 TH/MM3 (1.8-7.7); BASOPHIL % 0.4 % (0.0-2.0); EOSINOPHIL # 0.1 TH/MM3 (0-0.4); HEMATOCRIT 27.1 % (35.0-46.0); LYMPH % 15.9 % (9.0-44.0); LYMPHOCYTE # 0.8 TH/MM3 (1.0-4.8); MEAN CELL VOLUME 97.1 FL (80.0-100.0); MEAN CORPUSCULAR HEMOGLOBIN 32.5 PG (27.0-34.0); MEAN CORPUSCULAR HGB CONC 33.4 % (32.0-36.0); MONO % 13.3 % (0.0-8.0); NEUT % 69.4 % (16.0-70.0); PLATELET COUNT 80 TH/MM3 (150-450); RED BLOOD COUNT 2.79 MIL/MM3 (4.00-5.30); RED CELL DISTRIBUTION WIDTH 22.5 % (11.6-17.2)
[2016-05-26 22:08] LABS: HEMO FLAGS DIFF FINAL
[2016-05-27] VITALS (7 sets, daily range): BP systolic 92–117; BP diastolic 47–82; PULSE 85–97; RESP 18–20; TEMP 97.8–99.7; O2SAT 92–100
[2016-05-27] MEDS: MORPHINE SULFATE 4 MG/ML INJ IV PUSH PRN ×4 (03:31→19:40)
[2016-05-27 05:15] LABS: AUTOMATED NEUTROPHIL # 4.1 TH/MM3 (1.8-7.7); BASOPHIL % 0.7 % (0.0-2.0); EOSINOPHIL # 0.1 TH/MM3 (0-0.4); EOSINOPHIL % 0.9 % (0.0-4.0); HEMATOCRIT 26.6 % (35.0-46.0); LYMPH % 16.3 % (9.0-44.0); MEAN CORPUSCULAR HEMOGLOBIN 32.8 PG (27.0-34.0); MEAN CORPUSCULAR HGB CONC 34.6 % (32.0-36.0); NEUT % 68.1 % (16.0-70.0); PLATELET COUNT 93 TH/MM3 (150-450); RED CELL DISTRIBUTION WIDTH 22.2 % (11.6-17.2)
[2016-05-27 05:17] LABS: HEMO FLAGS AUTO DIFF
[2016-05-27 05:47] LABS: BICARBONATE 27.9 MEQ/L (21.0-32.0); MAGNESIUM 0.9 MG/DL (1.5-2.5); POTASSIUM 3.7 MEQ/L (3.5-5.1)
[2016-05-27] MEDS: POTASSIUM PHOSPHATE/SODIUM PHOSPHATE 250 MG TAB PO SCH ×7 (06:00→23:06)
[2016-05-27] MEDS: PENTOXIFYLLINE 400 MG CONTROLLED RELEASE TAB PO SCH ×3 (06:04→21:54)
[2016-05-27] MEDS: PIPERACIL-TAZO 4.5 GM PREMIX 100 ML IV SCH ×3 (06:04→17:48)
[2016-05-27] MEDS: metroNIDAZOLE 500 MG TAB PO SCH ×2 (06:04→15:17)
[2016-05-27 06:28] LABS: CALCIUM-PROTEIN CORRECTED 7.3 MG/DL (8.5-10.1); TOTAL BILIRUBIN ADULT 6.8 MG/DL (0.2-1.0)
[2016-05-27 08:04] LABS: ACANTHOCYTES OCC (NORMAL); KERATOCYTES OCC (NORMAL); SCAN/DIFF AUTO DIFF CONFIRMED
[2016-05-27] MEDS: MAGNESIUM OXIDE 400 MG TAB PO SCH (09:31)
[2016-05-27] MEDS: POTASSIUM CHLORIDE 20 MEQ CONTROLLED RELEASE TAB PO SCH (09:32)
[2016-05-27] MEDS: SODIUM CHLORIDE 0.9% FLUSH 5 ML FLUSH IV FLUSH SCH ×2 (09:32→21:54)
[2016-05-27] MEDS: PHYTONADIONE 5 MG TAB PO SCH (09:32)
[2016-05-27] MEDS: PANTOPRAZOLE SOD 40 MG DELAYED RELEASE TAB PO SCH (09:32)
[2016-05-27] MEDS: THIAMINE HCL 100 MG TAB PO SCH (09:32)
[2016-05-27] MEDS: RIFAXIMIN 550 MG TAB PO SCH ×2 (09:32→21:54)
[2016-05-27] MEDS: SPIRONOLACTONE 100 MG TAB PO SCH (09:32)
[2016-05-27] MEDS: LACTOBACILLUS ACIDOPHILUS TAB PO SCH ×3 (09:32→17:47)
[2016-05-27] MEDS: FUROSEMIDE 40 MG TAB PO SCH (09:32)
--- NOTE | 2016-05-27 13:13 | HHI.IDPN ---
Subjective Subjective Remarks Notes reviewed No fevers Gallium scan with increased uptake R lung Still with frequent BM Cultures are negative ESR 55 CRP only 1.6 Antibiotics Zosyn Flagyl Lines PIV Past Medical History Liver cirrhosis Esophageal varices, previous banding Portal hypertension Hypertension History of MRSA pneumonia Anemia Thrombocytopenia secondary to cirrhosis History of acalculous cholecystitis, has had tube cholecystostomy done in the past Past Surgical History Wiring of her jaw Previous tube cholecystostomy placement Esophageal variceal banding Abdominal paracenteses Endoscopies Allergies: Coded Allergies: Levofloxacin (Verified Allergy, Severe, Rash, 05/20/16) *MDRO Multi-Drug Resistant Organism (Verified Adverse Reaction, Unknown, MRSA, 05/21/16) MRSA (sputum) - 04/12/10 MRSA (wound) - 12/09/07 Objective . Vital Signs Date Time Temp Pulse Resp B/P Pulse Ox O2 Delivery O2 Flow Rate FiO2 05/27/16 08:00 97.8 93 20 92/47 97 05/27/16 04:00 98.1 88 18 114/62 96 05/27/16 00:12 98.4 88 18 109/63 100 05/26/16 21:00 Room Air 05/26/16 20:27 84 05/26/16 16:00 98.0 86 20 100/61 98 05/26/16 14:24 98 Room Air 05/26/16 14:24 98.4 05/26/16 05/26/16 05/27/16 15:00 23:00 07:00 Intake Total 120 ml 240 ml Balance 120 ml 240 ml Intake Oral 120 ml 240 ml # Voids 3 2 # Bowel Movements 3 . Laboratory Tests Test 05/26/16 05/27/16 20:51 04:40 White Blood Count 5.0 TH/MM3 6.0 TH/MM3 Red Blood Count 2.79 MIL/MM3 2.80 MIL/MM3 Hemoglobin 9.1 GM/DL 9.2 GM/DL Hematocrit 27.1 % 26.6 % Mean Corpuscular Volume 97.1 FL 95.0 FL Mean Corpuscular Hemoglobin 32.5 PG 32.8 PG Mean Corpuscular Hemoglobin 33.4 % 34.6 % Concent Red Cell Distribution Width 22.5 % 22.2 % Platelet Count 80 TH/MM3 93 TH/MM3 Mean Platelet Volume 11.7 FL 11.2 FL Neutrophils (%) (Auto) 69.4 % 68.1 % Lymphocytes (%) (Auto) 15.9 % 16.3 % Monocytes (%) (Auto) 13.3 % 14.0 % Eosinophils (%) (Auto) 1.0 % 0.9 % Basophils (%) (Auto) 0.4 % 0.7 % Neutrophils # (Auto) 3.5 TH/MM3 4.1 TH/MM3 Lymphocytes # (Auto) 0.8 TH/MM3 1.0 TH/MM3 Monocytes # (Auto) 0.7 TH/MM3 0.8 TH/MM3 Eosinophils # (Auto) 0.1 TH/MM3 0.1 TH/MM3 Basophils # (Auto) 0.0 TH/MM3 0.0 TH/MM3 CBC Comment DIFF FINAL AUTO DIFF Differential Comment AUTO DIFF CONFIRMED Acanthocytes OCC Keratocytes OCC Laboratory Tests Test 05/27/16 04:40 Sodium Level 133 MEQ/L Potassium Level 3.7 MEQ/L Chloride Level 96 MEQ/L Carbon Dioxide Level 27.9 MEQ/L Anion Gap 9 MEQ/L Blood Urea Nitrogen 6 MG/DL Creatinine 0.61 MG/DL Estimat Glomerular Filtration 126 ML/MIN Rate Random Glucose 119 MG/DL Calcium Level 7.1 MG/DL Protein Corrected Calcium 7.3 MG/DL Phosphorus Level 2.4 MG/DL Magnesium Level 0.9 MG/DL Total Bilirubin 6.8 MG/DL Aspartate Amino Transf 63 U/L (AST/SGOT) Alanine Aminotransferase 21 U/L (ALT/SGPT) Alkaline Phosphatase 137 U/L Total Protein 6.7 GM/DL Albumin 2.1 GM/DL Imaging Gallium Scan Nuclear Medicine 05/26/16 0000 Signed Impressions: Service Date/Time: Thursday, May 26, 2016 10:02 - CONCLUSION: Incomplete exam. However, 30 minute images do reveal a small area of increased activity at the expected location of the right middle lobe. When correlated with CT from May 20 differential diagnosis would include a small right middle lobe pneumonia. This is difficult to see on plain film and would be better evaluated on CT chest without contrast. Butch Walsh MD Hepatobiliary Scan Nuclear Medicine 05/22/16 0000 Signed Impressions: Service Date/Time: Sunday, May 22, 2016 09:30 - CONCLUSION: Patient refused the scan after the first 5 minutes. Nondiagnostic HIDA scan. Donell Bo MD Gall Bladder Ultrasound 05/21/16 0000 Signed Impressions: Service Date/Time: April 08:59 - CONCLUSION: 1. No evidence of gallstones or biliary tract obstruction. 2. There is thickening of the gallbladder wall is 7 mm with a trace of fluid around the gallbladder. This can be seen with either acute or chronic cholecystitis. This would have to be correlated with patient's physical, clinical exam and laboratory values. 3. There is increased echogenicity throughout the liver characteristic of hepatocellular disease such as cirrhosis. There is recanalization of the paraumbilical vein characteristics of cirrhosis. Donell Bo MD Abdomen Ultrasound 05/21/16 0000 Signed Impressions: Service Date/Time: April 09:17 - CONCLUSION: Trace of fluid around the liver. Donell Bo MD Chest X-Ray 05/20/16 0000 Signed Impressions: Service Date/Time: Friday, May 20, 2016 18:04 - CONCLUSION: Mild interstitial prominence. Lingular subsegmental atelectasis. Andrew Rowe MD Abdomen/Pelvis CT 05/20/16 0000 Signed Impressions: Service Date/Time: Friday, May 20, 2016 18:40 - CONCLUSION: 1. Cirrhosis and portal hypertension stigmata as described above. 2. Gallbladder wall thickening/edema noted and associated ascites. 3. Left adnexal cyst. Andrew Rowe MD Physical Exam GENERAL: awake and alert,NAD SKIN: Warm and dry. No generalized rash HEENT: No petechia or hemorrhage. Has scleral icterus. No injection or drainage. Moist oral mucosa. NECK: No JVD or lymphadenopathy. Supple, nontender, no meningeal signs. CARDIOVASCULAR: Regular rate and rhythm without gallops, or rubs. Has a soft murmur on the left sternal border. RESPIRATORY: Clear to auscultation. Breath sounds equal bilaterally. Decreased breath sounds at the bases. GASTROINTESTINAL: Abdomen is protuberant, and distended, with diffuse mild tenderness, no guarding, or rebound. MUSCULOSKELETAL: Extremities without clubbing, cyanosis. Has mild pedal edema. No joint effusion, or edema noted. No calf tenderness NEUROLOGICAL: Non-focal PSYCH: Calm and cooperative LINE: PIV with no evidence of infection Assessment & Plan Remarks IMPRESSION Febrile illness, source? - ?intraabdominal - ?PNA - UA ok - has diarrhea, previous C diff negative, ?colitis - no obvious source - temp spike less Liver cirrhosis, previous Hx EOH abuse Pancytopenia RECOMMENDATION Continue Zosyn Continue PO Flagyl Repeat CXR - if stable, D/C Abx - she is Day 7 Abx Monitor progress Follow Leslee Dumont MD May 27, 2016 13:13
--- NOTE | 2016-05-27 15:40 | RADRPT ---
EXAM DATE/TIME: 05/27/2016 14:49 [facility] COMPARISON: CHEST PA & LAT, May 20, 2016, 18:04. INDICATIONS : Evaluate for infiltrate. MEDICAL HISTORY : Cirrhosis. Hypertension. Gastroesophageal reflux disease.Ulcers. SURGICAL HISTORY : Esophageal varices repair. ENCOUNTER: Initial ACUITY: 1 day PAIN SCORE: 0/10 LOCATION: chest FINDINGS: The heart is at the upper limits of normal in size. There is minimal platelike atelectasis in the nichole g bases. The lungs are otherwise clear. The bony structures are grossly intact. The exam is stable co mpared to previous. CONCLUSION: 1. Minimal platelike atelectasis in the lung bases. No acute abnormality. Roberto Hoff MD on May 27, 2016 at 15:38 Board Certified Radiologist. This report was verified electronically.
--- NOTE | 2016-05-27 18:03 | HHI.PR ---
Subjective Remarks Follow-up fever. MAXIMUM TEMPERATURE 99.7. She is feeling much better denies any complaints and wants to go home. Repeat chest x-ray stable we'll discontinue antibiotics per ID recommendations and observe patient overnight. Discussed with RN Objective Vitals Vital Signs Date Time Temp Pulse Resp B/P Pulse Ox O2 Delivery O2 Flow Rate FiO2 05/27/16 12:00 99.7 95 20 94/55 94 05/27/16 08:00 97.8 93 20 92/47 97 05/27/16 04:00 98.1 88 18 114/62 96 05/27/16 00:12 98.4 88 18 109/63 100 05/26/16 21:00 Room Air 05/26/16 20:27 84 I/O 05/26/16 05/26/16 05/26/16 05/27/16 05/27/16 05/27/16 07:00 15:00 23:00 07:00 15:00 23:00 Intake Total 120 ml 240 ml Balance 120 ml 240 ml Intake Oral 120 ml 240 ml # Voids 3 2 # Bowel Movements 3 Result Diagram: 05/27/16 0440 05/27/16 0440 Imaging Last Impressions Chest X-Ray 05/27/16 0000 Signed Impressions: Service Date/Time: Friday, May 27, 2016 14:49 - CONCLUSION: 1. Minimal platelike atelectasis in the lung bases. No acute abnormality. Roberto Hoff MD Gallium Scan Nuclear Medicine 05/26/16 0000 Signed Impressions: Service Date/Time: Thursday, May 26, 2016 10:02 - CONCLUSION: Incomplete exam. However, 30 minute images do reveal a small area of increased activity at the expected location of the right middle lobe. When correlated with CT from May 20 differential diagnosis would include a small right middle lobe pneumonia. This is difficult to see on plain film and would be better evaluated on CT chest without contrast. Butch Walsh MD Hepatobiliary Scan Nuclear Medicine 05/22/16 0000 Signed Impressions: Service Date/Time: Sunday, May 22, 2016 09:30 - CONCLUSION: Patient refused the scan after the first 5 minutes. Nondiagnostic HIDA scan. Donell Bo MD Gall Bladder Ultrasound 05/21/16 0000 Signed Impressions: Service Date/Time: April 08:59 - CONCLUSION: 1. No evidence of gallstones or biliary tract obstruction. 2. There is thickening of the gallbladder wall is 7 mm with a trace of fluid around the gallbladder. This can be seen with either acute or chronic cholecystitis. This would have to be correlated with patient's physical, clinical exam and laboratory values. 3. There is increased echogenicity throughout the liver characteristic of hepatocellular disease such as cirrhosis. There is recanalization of the paraumbilical vein characteristics of cirrhosis. Donell Bo MD Abdomen Ultrasound 05/21/16 0000 Signed Impressions: Service Date/Time: April 09:17 - CONCLUSION: Trace of fluid around the liver. Donell Bo MD Abdomen/Pelvis CT 05/20/16 0000 Signed Impressions: Service Date/Time: Friday, May 20, 2016 18:40 - CONCLUSION: 1. Cirrhosis and portal hypertension stigmata as described above. 2. Gallbladder wall thickening/edema noted and associated ascites. 3. Left adnexal cyst. Andrew Rowe MD Objective Remarks GENERAL: This is a chronically ill patient, in no distress SKIN: Superficial ecchymosis. Spider angiomata. HEAD: Atraumatic. Normocephalic. No temporal or scalp tenderness. EYES: Scleral icterus present. No injection or drainage. ENT: Nose without bleeding, purulent drainage or septal hematoma. Airway patent. NECK: Trachea midline. No JVD CARDIOVASCULAR: S1S2, regular rhythm without murmurs, gallops, or rubs. RESPIRATORY: Bilaterally decreased air entry. GASTROINTESTINAL: Abdomen distended, non tender, (+) large ascites. Bowel sounds presents. No rebound. No guarding. MUSCULOSKELETAL: Extremities without clubbing, cyanosis. Mild bilateral lower extremity 1+ pitting edema. No calf tenderness. NEUROLOGICAL: Awake and alert.Motor and sensory grossly within normal limits. Normal speech. Procedures none A/P Problem List: (1) Sepsis ICD Code: A41.9 Status: Acute (2) Abdominal pain ICD Code: R10.9 Status: Acute (3) Ascites ICD Code: R18.8 Status: Acute (4) Liver cirrhosis ICD Code: K74.60 Status: Resolved (5) Leukopenia ICD Code: D72.819 Status: Resolved (6) Thrombocytopenia ICD Code: D69.6 Status: Acute (7) Hyponatremia ICD Code: E87.1 Status: Chronic (8) Hypomagnesemia ICD Code: E83.42 Status: Acute (9) Hypophosphatemia ICD Code: E83.39 Status: Acute (10) Coagulopathy ICD Code: D68.9 Status: Acute (11) Diarrhea ICD Code: R19.7 Status: Chronic Assessment and Plan (1) Sepsis ? intraabdominal source Id consulted - appreciated Blood cultures negative to date. Elevated rhematoid factor and positive RF screen. FRED screen negative Nuclear scan pending ----> incomplete test, signs of RML pna. Repeat chest x- ray stable. Per ID, may discontinue IV Zosyn and po Flagyl already received at least 7 days Follow-up HIV test (2) Abdominal pain Plan: HIDA not completed. Patient refused scan. 05/24/16 abdominal pain improving. GI following, abdominal pain improving. (3) Ascites Plan: abdomen soft, fu GI recommendations Continue diuretics - lasix and spironolactone. (4) Liver cirrhosis Plan: Liver cirrhosis. Pt was recently hospitalized earlier this month and had MELD score 23 at that time. Has not had PT/INR during this hospitalization. 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 She quit drinking at that time. However she started drinking again about 6 months ago, 3-4 beers per day up until her hospitalization earlier this month. Hepatitis panel negative, FRED negative. AMA <20.0. ASMA negative. Alpha antitrypsin 129, Ceruloplasmin 17. AFP 2.2. - Ascites, mild, not tense. Spironolactone. Lasix - T bili 6.4, AST 59, ALT 21 - GI following. Continue pentoxifylline, rifaximin (5) Leukopenia Plan: Likely secondary to sepsis. Now resolved. Continue to monitor CBC with differential. (6) Thrombocytopenia Plan: chronic. Likely secondary to liver disease and acute illness. Platelets slightly improved up to 72. Continue to monitor platelets. (7) Hyponatremia Likely hypervolemic hyponatremia. Continue diuretics. Monitor BMP. (8) Hypomagnesemia Plan: Likely secondary to decreased oral intake. Continue to monitor and replace as needed. (9) Hypophosphatemia Likely due to nutritional deficiency. Continue oral phosphorus. Continue to monitor phosphorus and replace. (10) Coagulopathy Plan: Due to liver disease. Monitor PT/INR. No signs of bleeding. Continue vitamin k. (11) Diarrhea Plan: Rare WBC on stool WBC. Negative study Gi following Check HIV screen ---> confirmatory test in process DVT prophylaxis: SCD's, no chemical prophylaxis due to high risk of bleeding secondary to coagulopathy and thrombocytopenia. Discharge Planning Possible discharge in the morning Problem Qualifiers (1) Sepsis: Qualified Code: A41.9 - Sepsis, due to unspecified organism (2) Abdominal pain: Qualified Code: R10.11 - Right upper quadrant abdominal pain (3) Ascites: Qualified Code: K70.31 - Ascites due to alcoholic cirrhosis (4) Liver cirrhosis: Qualified Code: K70.31 - Alcoholic cirrhosis of liver with ascites Samir Oneal MD May 27, 2016 18:03
[2016-05-27] MEDS ORDERED: LACT PO (18:05)
[2016-05-27] MEDS ORDERED: CALG500 PO (18:05)
--- NOTE | 2016-05-27 18:06 | HHI.DCPOC ---
Discharge Care Plan Diagnosis: (1) Liver cirrhosis Your Health Problems Are: Difficulty with ADL Exercise Tolerance Goals to Promote Your Health * To prevent worsening of your condition and complications * To maintain your health at the optimal level Directions to Meet Your Goals Take your medications as prescribed Follow your dietary instruction Follow activity as directed Keep your appointments as scheduled Take your immunizations and boosters as scheduled If your symptoms worsen call your PCP, if no PCP go to Urgent Care Center or Emergency Room Smoking is Dangerous to Your Health. Avoid second hand smoke Call the 24-hour hour crisis hotline for domestic abuse at Samir Oneal MD May 27, 2016 18:06
[2016-05-27] MEDS: CALCIUM GLUCONATE 500 MG TAB PO SCH (21:58)
[2016-05-27 23:22] LABS: HIV 1/2 AG AND AB SCREEN Reactive (Negative); HIV 2 AB DIFFERENTIATION Negative (Negative)
[2016-05-28] VITALS (7 sets, daily range): BP systolic 107–117; BP diastolic 58–75; PULSE 85–92; RESP 17–20; TEMP 97.7–99.2; O2SAT 94–97
[2016-05-28] MEDS: MORPHINE SULFATE 4 MG/ML INJ IV PUSH PRN ×3 (00:33→14:39)
[2016-05-28] MEDS: SODIUM CHLORIDE 0.9% FLUSH 5 ML FLUSH IV FLUSH PRN (00:33)
[2016-05-28] MEDS: PENTOXIFYLLINE 400 MG CONTROLLED RELEASE TAB PO SCH ×2 (05:34→14:24)
[2016-05-28] MEDS: POTASSIUM PHOSPHATE/SODIUM PHOSPHATE 250 MG TAB PO SCH ×3 (05:34→18:29)
[2016-05-28 08:51] LABS: INTERNATIONAL NORMALIZED RATIO 3.3 RATIO; PROTHROMBIN TIME - PATIENT 38.3 SEC (9.8-11.6)
[2016-05-28 09:17] LABS: BICARBONATE 26.4 MEQ/L (21.0-32.0); MAGNESIUM 0.9 MG/DL (1.5-2.5); POTASSIUM 3.2 MEQ/L (3.5-5.1); TOTAL BILIRUBIN ADULT 7.5 MG/DL (0.2-1.0)
[2016-05-28] MEDS: CALCIUM GLUCONATE 500 MG TAB PO SCH (09:29)
[2016-05-28] MEDS: LACTOBACILLUS ACIDOPHILUS TAB PO SCH ×3 (09:30→18:29)
[2016-05-28] MEDS: PANTOPRAZOLE SOD 40 MG DELAYED RELEASE TAB PO SCH (09:30)
[2016-05-28] MEDS: THIAMINE HCL 100 MG TAB PO SCH (09:30)
[2016-05-28] MEDS: PHYTONADIONE 5 MG TAB PO SCH (09:30)
[2016-05-28] MEDS: RIFAXIMIN 550 MG TAB PO SCH (09:30)
[2016-05-28] MEDS: SPIRONOLACTONE 100 MG TAB PO SCH (09:30)
[2016-05-28] MEDS: MAGNESIUM OXIDE 400 MG TAB PO SCH (09:30)
[2016-05-28] MEDS: FUROSEMIDE 40 MG TAB PO SCH (09:30)
[2016-05-28] MEDS: POTASSIUM CHLORIDE 20 MEQ CONTROLLED RELEASE TAB PO SCH (09:30)
[2016-05-28] MEDS: SODIUM CHLORIDE 0.9% FLUSH 5 ML FLUSH IV FLUSH SCH (09:31)
[2016-05-28 09:34] LABS: CALCIUM-PROTEIN CORRECTED 7.4 MG/DL (8.5-10.1)
[2016-05-28] MEDS ORDERED: POTASSIUM CHLORIDE 10 MEQ CONTROLLED RELEASE TAB PO ONE (11:15)
[2016-05-28] MEDS ORDERED: MAGN400T3 PO (11:19)
[2016-05-28] MEDS ORDERED: POTA20TA5 PO (11:19)
[2016-05-28] MEDS ORDERED: KPHOS250 PO (11:19)
--- NOTE | 2016-05-28 11:39 | HHI.PR ---
Subjective Remarks Follow-up multiple electrolyte abnormalities. Patient doing okay she wants to go home. Agrees to stay to receive replacement and wait for repeat lab work. Patient also informed of HIV status discussed with ID, case management and RN Objective Vitals Vital Signs Date Time Temp Pulse Resp B/P Pulse Ox O2 Delivery O2 Flow Rate FiO2 05/28/16 08:00 97.9 86 18 107/58 97 05/28/16 04:00 98.0 92 17 112/60 96 05/28/16 00:00 97.7 92 18 115/75 94 05/27/16 22:00 Room Air 05/27/16 21:30 88 05/27/16 20:00 98.6 89 20 101/57 92 05/27/16 16:00 98.4 97 20 117/67 97 05/27/16 12:00 99.7 95 20 94/55 94 I/O 05/27/16 05/27/16 05/27/16 05/28/16 05/28/16 05/28/16 06:59 14:59 22:59 06:59 14:59 22:59 Intake Total 360 ml 109 ml 120 ml Output Total 700 ml Balance -340 ml 109 ml 120 ml Intake Oral 360 ml 120 ml IV Total 109 ml Output Urine Total 700 ml # Voids 1 2 # Bowel Movements 2 1 Result Diagram: 05/27/16 0440 05/28/16 0727 Objective Remarks GENERAL: This is a chronically ill patient, in no distress SKIN: Superficial ecchymosis. Spider angiomata. HEAD: Atraumatic. Normocephalic. No temporal or scalp tenderness. EYES: Scleral icterus present. No injection or drainage. ENT: Nose without bleeding, purulent drainage or septal hematoma. Airway patent. NECK: Trachea midline. No JVD CARDIOVASCULAR: S1S2, regular rhythm without murmurs, gallops, or rubs. RESPIRATORY: Bilaterally decreased air entry. GASTROINTESTINAL: Abdomen distended, non tender, (+) large ascites. Bowel sounds presents. No rebound. No guarding. MUSCULOSKELETAL: Extremities without clubbing, cyanosis. Mild bilateral lower extremity 1+ pitting edema. No calf tenderness. NEUROLOGICAL: Awake and alert.Motor and sensory grossly within normal limits. Normal speech. Procedures none A/P Problem List: (1) Sepsis ICD Code: A41.9 Status: Acute (2) Abdominal pain ICD Code: R10.9 Status: Acute (3) Ascites ICD Code: R18.8 Status: Acute (4) Liver cirrhosis ICD Code: K74.60 Status: Resolved (5) Leukopenia ICD Code: D72.819 Status: Resolved (6) Thrombocytopenia ICD Code: D69.6 Status: Acute (7) Hyponatremia ICD Code: E87.1 Status: Chronic (8) Hypomagnesemia ICD Code: E83.42 Status: Acute (9) Hypophosphatemia ICD Code: E83.39 Status: Acute (10) Coagulopathy ICD Code: D68.9 Status: Acute (11) Diarrhea ICD Code: R19.7 Status: Chronic Assessment and Plan (1) Sepsis ? intraabdominal source Id consulted - appreciated Blood cultures negative to date. Elevated rhematoid factor and positive RF screen. FRED screen negative Nuclear scan pending ----> incomplete test, signs of RML pna. Repeat chest x- ray stable. Per ID, may discontinue IV Zosyn and po Flagyl already received at least 7 days Follow-up HIV test which is positive discussed with ID, check HIV RNA. Patient informed and educated. To use protection and inform partner. CM to assist with o /p f/u with Health dept (2) Abdominal pain Plan: HIDA not completed. Patient refused scan. 05/24/16 abdominal pain improving. GI following, abdominal pain improving. (3) Ascites Plan: abdomen soft, fu GI recommendations Continue diuretics - lasix and spironolactone. (4) Liver cirrhosis Plan: Liver cirrhosis. Pt was recently hospitalized earlier this month and had MELD score 23 at that time. Has not had PT/INR during this hospitalization. 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 She quit drinking at that time. However she started drinking again about 6 months ago, 3-4 beers per day up until her hospitalization earlier this month. Hepatitis panel negative, FRED negative. AMA <20.0. ASMA negative. Alpha antitrypsin 129, Ceruloplasmin 17. AFP 2.2. - Ascites, mild, not tense. Spironolactone. Lasix - T bili 6.4, AST 59, ALT 21 - GI following. Continue pentoxifylline, rifaximin (5) Leukopenia Plan: Likely secondary to sepsis. Now resolved. Continue to monitor CBC with differential. (6) Thrombocytopenia Plan: chronic. Likely secondary to liver disease and acute illness. Platelets slightly improved up to 72. Continue to monitor platelets. (7) Hyponatremia Likely hypervolemic hyponatremia. Continue diuretics. Monitor BMP. (8) Hypomagnesemia Plan: Likely secondary to decreased oral intake. Continue to monitor and replace as needed. Give 2 g IV magnesium sulfate and increase magnesium oxide to 400 mg twice a day. (9) Hypophosphatemia Likely due to nutritional deficiency. Increase oral phosphorus and give one- time dose of IV phosphorus. Continue to monitor phosphorus and replace. (10) Coagulopathy Plan: Due to liver disease. Monitor PT/INR. No signs of bleeding. Continue vitamin k. (11) Diarrhea Plan: Rare WBC on stool WBC. Negative study Gi following DVT prophylaxis: SCD's, no chemical prophylaxis due to high risk of bleeding secondary to coagulopathy and thrombocytopenia. Discharge Planning Possible discharge later today Problem Qualifiers (1) Sepsis: Qualified Code: A41.9 - Sepsis, due to unspecified organism (2) Abdominal pain: Qualified Code: R10.11 - Right upper quadrant abdominal pain (3) Ascites: Qualified Code: K70.31 - Ascites due to alcoholic cirrhosis (4) Liver cirrhosis: Qualified Code: K70.31 - Alcoholic cirrhosis of liver with ascites Samir Oneal MD May 28, 2016 11:39
--- NOTE | 2016-05-28 11:43 | HHI.DS ---
Discharge Summary Admission Date May 20, 2016 at 21:57 Discharge Date: May 28, 2016 Admitting Diagnosis END STAGE CIRRHOSIS; ABDOMINAL PAIN; FEVER (1) Sepsis ICD Code: A41.9 Diagnosis: Principal (2) Abdominal pain ICD Code: R10.9 Diagnosis: Principal (3) Ascites ICD Code: R18.8 Diagnosis: Principal (4) Liver cirrhosis ICD Code: K74.60 Diagnosis: Principal (5) Leukopenia ICD Code: D72.819 Diagnosis: Principal (6) Thrombocytopenia ICD Code: D69.6 Diagnosis: Principal (7) Hyponatremia ICD Code: E87.1 Diagnosis: Principal (8) Hypomagnesemia ICD Code: E83.42 Diagnosis: Principal (9) Hypophosphatemia ICD Code: E83.39 Diagnosis: Principal (10) Coagulopathy ICD Code: D68.9 Diagnosis: Principal (11) Diarrhea ICD Code: R19.7 Diagnosis: Principal Procedures none Brief History - From Admission History from patient, ER PA communication, and review of medical records. Patient is also known to me from prior hospitalization. Patient was discharged from our hospital on May 14, 2016. She was managed at that time for GI bleed/end-stage alcoholic liver cirrhosis/hepatic encephalopathy/sepsis with colitis seen on colonoscopy/UTI.. She reports that since discharge, she has been having high-grade fevers of 102- 103. Her daughter has been giving her cold showers at home. She also reports of having constant diarrhea and not able to control her bowel movements. Her daughter states that she has to clean her toilette almost every 30 minutes or so. Patient states that she actually is not taking lactulose at home at all because of this diarrhea. However denies any black color stool. Denies any vomiting blood. Reports of nausea though. Also reported shortness of breath. Abdominal pain is also present at right upper quadrant area. Reports of increasing abdominal distention as well. Patient is also noted to have significant weight gain in the form of fluid since the last time I saw her which was on May 04, 2016. In the emergency room, patient was given Rocephin and Flagyl. At the time of my exam, patient is awake, alert, oriented. However she is quite weak and looks chronically ill. She has significantly deteriorated from the last time I saw her. She is noted to have tactile fever as well. Her nurse reported to me that her temperature is 103 at present. CBC/BMP: 05/27/16 0440 05/28/16 0725 Significant Findings Laboratory Tests Test 05/26/16 05/27/16 05/28/16 20:51 04:40 07:27 Red Blood Count 2.79 MIL/MM3 2.80 MIL/MM3 (4.00-5.30) (4.00-5.30) Hemoglobin 9.1 GM/DL 9.2 GM/DL (11.6-15.3) (11.6-15.3) Hematocrit 27.1 % 26.6 % (35.0-46.0) (35.0-46.0) Red Cell Distribution Width 22.5 % 22.2 % (11.6-17.2) (11.6-17.2) Platelet Count 80 TH/MM3 93 TH/MM3 (150-450) (150-450) Mean Platelet Volume 11.7 FL 11.2 FL (7.0-11.0) (7.0-11.0) Monocytes (%) (Auto) 13.3 % 14.0 % (0.0-8.0) (0.0-8.0) Lymphocytes # (Auto) 0.8 TH/MM3 (1.0-4.8) Acanthocytes OCC (NORMAL) Keratocytes OCC (NORMAL) Sodium Level 133 MEQ/L 132 MEQ/L (136-145) (136-145) Chloride Level 96 MEQ/L 95 MEQ/L (98-107) (98-107) Blood Urea Nitrogen 6 MG/DL (7-18) 6 MG/DL (7-18) Random Glucose 119 MG/DL 131 MG/DL (74-106) (74-106) Calcium Level 7.1 MG/DL 7.1 MG/DL (8.5-10.1) (8.5-10.1) Protein Corrected Calcium 7.3 MG/DL 7.4 MG/DL (8.5-10.1) (8.5-10.1) Phosphorus Level 2.4 MG/DL 2.0 MG/DL (2.5-4.9) (2.5-4.9) Magnesium Level 0.9 MG/DL 0.9 MG/DL (1.5-2.5) (1.5-2.5) Total Bilirubin 6.8 MG/DL 7.5 MG/DL (0.2-1.0) (0.2-1.0) Aspartate Amino Transf 63 U/L (15-37) 66 U/L (15-37) (AST/SGOT) Alkaline Phosphatase 137 U/L 123 U/L (45-117) (45-117) Albumin 2.1 GM/DL 2.1 GM/DL (3.4-5.0) (3.4-5.0) Prothrombin Time 38.3 SEC (9.8-11.6) Potassium Level 3.2 MEQ/L (3.5-5.1) Imaging Last Impressions Chest X-Ray 05/27/16 0000 Signed Impressions: Service Date/Time: Friday, May 27, 2016 14:49 - CONCLUSION: 1. Minimal platelike atelectasis in the lung bases. No acute abnormality. Roberto Hoff MD Gallium Scan Nuclear Medicine 05/26/16 0000 Signed Impressions: Service Date/Time: Thursday, May 26, 2016 10:02 - CONCLUSION: Incomplete exam. However, 30 minute images do reveal a small area of increased activity at the expected location of the right middle lobe. When correlated with CT from May 20 differential diagnosis would include a small right middle lobe pneumonia. This is difficult to see on plain film and would be better evaluated on CT chest without contrast. Butch Walsh MD Hepatobiliary Scan Nuclear Medicine 05/22/16 0000 Signed Impressions: Service Date/Time: Sunday, May 22, 2016 09:30 - CONCLUSION: Patient refused the scan after the first 5 minutes. Nondiagnostic HIDA scan. Donell Bo MD Gall Bladder Ultrasound 05/21/16 0000 Signed Impressions: Service Date/Time: April 08:59 - CONCLUSION: 1. No evidence of gallstones or biliary tract obstruction. 2. There is thickening of the gallbladder wall is 7 mm with a trace of fluid around the gallbladder. This can be seen with either acute or chronic cholecystitis. This would have to be correlated with patient's physical, clinical exam and laboratory values. 3. There is increased echogenicity throughout the liver characteristic of hepatocellular disease such as cirrhosis. There is recanalization of the paraumbilical vein characteristics of cirrhosis. Donell Bo MD Abdomen Ultrasound 05/21/16 0000 Signed Impressions: Service Date/Time: April 09:17 - CONCLUSION: Trace of fluid around the liver. Donell Bo MD Abdomen/Pelvis CT 05/20/16 0000 Signed Impressions: Service Date/Time: Friday, May 20, 2016 18:40 - CONCLUSION: 1. Cirrhosis and portal hypertension stigmata as described above. 2. Gallbladder wall thickening/edema noted and associated ascites. 3. Left adnexal cyst. Andrew Rowe MD PE at Discharge GENERAL: This is a chronically ill patient, in no distress SKIN: Superficial ecchymosis. Spider angiomata. HEAD: Atraumatic. Normocephalic. No temporal or scalp tenderness. EYES: Scleral icterus present. No injection or drainage. ENT: Nose without bleeding, purulent drainage or septal hematoma. Airway patent. NECK: Trachea midline. No JVD CARDIOVASCULAR: S1S2, regular rhythm without murmurs, gallops, or rubs. RESPIRATORY: Bilaterally decreased air entry. GASTROINTESTINAL: Abdomen distended, non tender, (+) large ascites. Bowel sounds presents. No rebound. No guarding. MUSCULOSKELETAL: Extremities without clubbing, cyanosis. Mild bilateral lower extremity 1+ pitting edema. No calf tenderness. NEUROLOGICAL: Awake and alert.Motor and sensory grossly within normal limits. Normal speech. Hospital Course (1) Sepsis ? intraabdominal source Id consulted - appreciated Blood cultures negative to date. Elevated rhematoid factor and positive RF screen. FRED screen negative Nuclear scan pending ----> incomplete test, signs of RML pna. Repeat chest x- ray stable. Per ID, may discontinue IV Zosyn and po Flagyl already received at least 7 days Follow-up HIV test which is positive discussed with ID, check HIV RNA. Patient informed and educated. To use protection and inform partner. CM to assist with o /p f/u with Health dept (2) Abdominal pain Plan: HIDA not completed. Patient refused scan. 05/24/16 abdominal pain improving. GI following, abdominal pain improving. (3) Ascites Plan: abdomen soft, fu GI recommendations Continue diuretics - lasix and spironolactone. (4) Liver cirrhosis Plan: Liver cirrhosis. Pt was recently hospitalized earlier this month and had MELD score 23 at that time. Has not had PT/INR during this hospitalization. 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 She quit drinking at that time. However she started drinking again about 6 months ago, 3-4 beers per day up until her hospitalization earlier this month. Hepatitis panel negative, FRED negative. AMA <20.0. ASMA negative. Alpha antitrypsin 129, Ceruloplasmin 17. AFP 2.2. - Ascites, mild, not tense. Spironolactone. Lasix - T bili 6.4, AST 59, ALT 21 - GI following. Continue pentoxifylline, rifaximin (5) Leukopenia Plan: Likely secondary to sepsis. Now resolved. Continue to monitor CBC with differential. (6) Thrombocytopenia Plan: chronic. Likely secondary to liver disease and acute illness. Platelets slightly improved up to 72. Continue to monitor platelets. (7) Hyponatremia Likely hypervolemic hyponatremia. Continue diuretics. Monitor BMP. (8) Hypomagnesemia Plan: Likely secondary to decreased oral intake. Continue to monitor and replace as needed. Give 2 g IV magnesium sulfate and increase magnesium oxide to 400 mg twice a day. (9) Hypophosphatemia Likely due to nutritional deficiency. Increase oral phosphorus and give one- time dose of IV phosphorus. Continue to monitor phosphorus and replace. (10) Coagulopathy Plan: Due to liver disease. Monitor PT/INR. No signs of bleeding. Continue vitamin k. (11) Diarrhea Plan: Rare WBC on stool WBC. Negative study Gi following DVT prophylaxis: SCD's, no chemical prophylaxis due to high risk of bleeding secondary to coagulopathy and thrombocytopenia. Pt Condition on Discharge: Stable Discharge Disposition: Discharge Home Discharge Time: <= 30 minutes Discharge Instructions DIET: Follow Instructions for: Soft Diet Activities you can perform: Regular-No Restrictions Activities to Avoid: Driving Follow up Referrals: PCP Follow-up - 1 Week New Orders: BASIC METABOLIC PROF - 06/01/16 MAGNESIUM (MG) - 06/01/16 PHOSPHORUS (PO4) - 06/01/16 New Medications: Calcium Gluconate (Calcium Gluconate) 500 Mg Tab 1000 MG PO DAILY Electrolyte Replacement #30 TAB Lactobacillus Acidophilus (Acidophilus/l-Sporogenes) 1 Tab Tab 1 TAB PO TID Bowel Management #90 TAB Magnesium Oxide (Magnesium Oxide) 241.3 Mg Tab 400 MG PO BID Electrolyte Replacement #60 TAB Potassium Chloride Microencaps (Potassium Chloride Microencaps) 20 Meq Tab 40 MEQ PO DAILY Electrolyte Replacement #30 TAB Potassium Phosphate-Sodium Phosphate (K-Phos Neutral) 155-852-130 Mg Tab 500 MG PO Q6HR Electrolyte Replacement #120 TAB Continued Medications: Furosemide (Furosemide) 40 Mg Tab 40 MG PO DAILY ascites #30 Ref 0 TAB Pantoprazole (Protonix) 40 Mg Tab 40 MG PO DAILY Ulcer Prevention #30 Ref 0 TAB Pentoxifylline ER (Pentoxifylline ER) 400 Mg Tab 400 MG PO Q8H cirrhosis #30 TAB Phytonadione (Mephyton) 5 Mg Tab 5 MG PO DAILY coagulopathy #30 TAB Rifaximin (Xifaxan) 550 Mg Tab 550 MG PO BID liver cirrhosis #60 TAB Spironolactone (Spironolactone) 100 Mg Tab 100 MG PO DAILY ascites #30 TAB Thiamine (Vitamin B-1) 100 Mg Tab 100 MG PO DAILY etoh #30 TAB Discontinued Medications: Lactulose Liq (Lactulose Liq) 10 Gm/15 Ml Soln 30 ML PO DAILY high ammonia #1 BOTTLE Magnesium Oxide (Magnesium Oxide) 500 Mg Tab 500 MG PO DAILY low magnesium #20 Ref 0 TAB Potassium Chloride ER (Potassium Chloride ER) 20 Meq Tab 20 MEQ PO DAILY Electrolyte Replacement #30 Ref 0 TAB Samir Oneal MD May 28, 2016 11:43
[2016-05-28] MEDS ORDERED: POTASSIUM PHOSPHATE INJ 15 MMOL in SODIUM CHLORIDE 0.9% INJ 150 ML IV ONE (12:00)
[2016-05-28] MEDS: MAGNESIUM SULFATE 1 GM PREMIX 100 ML IV SCH ×2 (12:22→14:24)
[2016-05-28 16:22] LABS: HIV 1 AB DIFFERENTIATION Positive (Negative)
[2016-05-28 16:44] LABS: BICARBONATE 29.1 MEQ/L (21.0-32.0); MAGNESIUM 1.6 MG/DL (1.5-2.5); POTASSIUM 3.6 MEQ/L (3.5-5.1)
[2016-05-28 17:02] LABS: CALCIUM-PROTEIN CORRECTED 7.6 MG/DL (8.5-10.1)
[2016-05-28] MEDS ORDERED: MAGNESIUM OXIDE 400 MG TAB PO SCH (21:00)
[2016-05-29] MEDS ORDERED: POTASSIUM CHLORIDE 20 MEQ CONTROLLED RELEASE TAB PO SCH (09:00)
== END 2016-05-28 20:47 | disposition home or self-care (01) | DRG 872 ==
LOC: NEPA 15:16 → NEDA 19:13 → OBSVTOIN 21:57 → N04A 23:14
PROVIDERS: ADMIT Internal Medicine; ATTEND Internal Medicine
DX: A41.9 Sepsis, unspecified organism (principal); D68.9 Coagulation defect, unspecified; K76.6 Portal hypertension; D69.6 Thrombocytopenia, unspecified; K70.31 Alcoholic cirrhosis of liver with ascites; E87.1 Hypo-osmolality and hyponatremia; J98.11 Atelectasis; E83.42 Hypomagnesemia; D72.819 Decreased white blood cell count, unspecified; E83.39 Other disorders of phosphorus metabolism; R19.7 Diarrhea, unspecified; F10.20 Alcohol dependence, uncomplicated; R10.9 Unspecified abdominal pain; I10 Essential (primary) hypertension; K21.9 Gastro-esophageal reflux disease without esophagitis
CPT/HCPCS: 71020; 74176; 76705; 78226; 78806; 80048; 80053; 81001; 82140; 83605; 83735; 84100; 84155; 85007; 85025; 85027; 85610; 85652; 86038; 86140; 86430; 86701; 86702; 86703; 87040; 87205; 87328; 87329; 87493; 87536; 87641; 87804; 93005; 96374; A9537; A9556; J0696; J2060; J2270; J2543; J3475

== ENCOUNTER 2016-06-05 20:54 | Inpatient (IN) | payer MEDICAID ==
[~2016-06-05] VITALS: Ht 162.6 cm; Wt 80.0 kg
[2016-06-05] VITALS (14 sets, daily range): BP systolic 101–153; BP diastolic 54–99; PULSE 126–140; RESP 14–20; TEMP 102.7; O2SAT 96–100
[~2016-06-05 20:54] MED LIST changes: +CALG500 PO; +LACT PO; -LACT10SO PO; +MAGN400T3 PO; -MAGN500T2 PO; -POTA-163 PO; +POTA20TA5 PO
[2016-06-05] MEDS ORDERED: SODIUM CHLOR 0.9% 1000 ML INJ 1,000 ML IV SCH (21:08)
[2016-06-05] MEDS ORDERED: PANTOPRAZOLE INJ 80 MG in SODIUM CHLORIDE 0.9% INJ 35 ML IV ONE (21:15)
[2016-06-05] MEDS ORDERED: cefTRIAXone INJ 2,000 MG in SODIUM CHLORIDE 0.9% INJ 100 ML IV ONE (21:15)
[2016-06-05] MEDS ORDERED: SODIUM CHLORIDE 0.9% FLUSH 5 ML FLUSH IVF PRN (21:15)
[2016-06-05] MEDS ORDERED: OCTREOTIDE INJ 100 MCG/ML VIAL IV PUSH ONE (21:15)
[2016-06-05] MEDS: PANTOPRAZOLE INJ 80 MG in SODIUM CHLORIDE 0.9% INJ 100 ML IV SCH (21:47)
[2016-06-05] MEDS ORDERED: SUCCINYLCHOLINE CHLORIDE 200 MG/10 ML VIAL ONE (21:58)
[2016-06-05] MEDS ORDERED: ETOMIDATE 20 MG/10 ML VIAL ONE (21:58)
[2016-06-05] MEDS ORDERED: ONDANSETRON HCL 4 MG/2 ML VIAL IV PUSH ONE (22:00)
[2016-06-05] MEDS ORDERED: SODIUM CHLOR 0.9% 250 ML INJ 250 ML IV ONE (22:00)
--- NOTE | 2016-06-05 22:06 | RADRPT ---
EXAM DATE/TIME: 06/05/2016 21:48 [facility] COMPARISON: CHEST SINGLE AP, May 04, 2016, 17:12. INDICATIONS : Syncopal episode and vominting blood. MEDICAL HISTORY : None. SURGICAL HISTORY : None. ENCOUNTER: Initial ACUITY: 1 week PAIN SCORE: 0/10 LOCATION: chest FINDINGS: A single view of the chest demonstrates the lungs to be symmetrically aerated without evidence of mas s, infiltrate or effusion. The cardiomediastinal contours are unremarkable. Osseous structures are intact. CONCLUSION: No acute disease. Juan Malave MD on June 05, 2016 at 22:05 Board Certified Radiologist. This report was verified electronically.
[2016-06-05] MEDS ORDERED: fentaNYL DRIP 250 ML ONE (22:10)
[2016-06-05] MEDS ORDERED: MIDAZOLAM 100 MG/ML INJ 100 ML ONE (22:11)
[2016-06-05] MEDS ORDERED: MIDAZOLAM 100 MG/ML INJ 100 ML IV SCH (22:15)
[2016-06-05] MEDS ORDERED: ETOMIDATE 20 MG/10 ML VIAL IV PUSH ONE (22:15)
[2016-06-05] MEDS ORDERED: SUCCINYLCHOLINE CHLORIDE 200 MG/10 ML VIAL IV PUSH ONE (22:15)
[2016-06-05] MEDS ORDERED: MIDAZOLAM HCL 5 MG/ML VIAL (1 ML) ONE (22:28)
[2016-06-05] MEDS ORDERED: MIDAZOLAM HCL 2 MG/2 ML VIAL IV PUSH ONE (22:30)
--- NOTE | 2016-06-05 22:53 | RADRPT ---
EXAM DATE/TIME: 06/05/2016 22:32 [facility] COMPARISON: CHEST SINGLE AP, June 05, 2016, 21:48. INDICATIONS : Intubation. MEDICAL HISTORY : None. SURGICAL HISTORY : None. ENCOUNTER: Initial ACUITY: 1 day PAIN SCORE: Non-responsive. LOCATION: Bilateral chest FINDINGS: The patient is intubated with the tip of the ET tube 3 cm from the len. The heart si ze is upper limits of normal. The lungs are clear. There is evidence of prior healed left-sided rib fractures. No effusion is seen. CONCLUSION: ET tube in good position. Juan Malave MD on June 05, 2016 at 22:37 Board Certified Radiologist. This report was verified electronically.
[2016-06-05 22:56] LABS: APTT (PATIENT) 81.4 SEC (24.3-30.1); INTERNATIONAL NORMALIZED RATIO 2.9 RATIO
--- NOTE | 2016-06-05 23:00 | PD ---
HPI Chief Complaint: GI Complaint Time Seen by Provider: 21:04 Travel History International Travel<30 days: No Contact w/Intl Traveler<30days: No Traveled to known affect area: No History of Present Illness HPI Patient is a 50-year-old female with history of cirrhosis and bleeding esophageal varices who comes in vomiting blood. She has been admitted for this multiple times in the past. She says this started this afternoon. Per daughter EMS was called and she refused to go at first. 2 hours later EMS was called again because she was still vomiting blood and at that time the daughter made her come to the hospital. Patient appears confused, cannot provide much history. She is complaining of feeling cold. She does admit to drinking 2 beers today. PFSH Past Medical History Anemia: Yes Arthritis: No Asthma: No Autoimmune Disease: No Blood Disorders: Yes (ETOH ABUSE) Anxiety: Yes Depression: No Heart Rhythm Problems: No Cancer: No Cardiovascular Problems: Yes High Cholesterol: Yes Chemotherapy: No Chest Pain: No Congestive Heart Failure: No Cirrhosis: Yes COPD: No Cerebrovascular Accident: No Diabetes: No Diminished Hearing: No Endocrine: No Gastrointestinal Disorders: Yes (ESOPHAGEAL VARICIES.) GERD: Yes Glaucoma: No Genitourinary: No Hepatitis: Yes Hiatal Hernia: No Hypertension: Yes Immune Disorder: No Kidney Stones: No Musculoskeletal: No Neurologic: No Psychiatric: Yes Reproductive: No Respiratory: Yes Immunizations Current: Yes Migraines: No Myocardial Infarction: No Radiation Therapy: No Renal Failure: No Seizures: No Sickle Cell Disease: No Sleep Apnea: No Thyroid Disease: No Ulcer: Yes : 3 Para: 2 Past Surgical History Abdominal Surgery: Yes (egd /colonoscopy 04/2016) AICD: No Appendectomy: No Arteriovenous Shunt: No Cardiac Surgery: No Section: Yes Cholecystectomy: No Ear Surgery: No Endocrine Surgery: No Eye Surgery: No Gynecologic Surgery: No Insulin Pump: No Joint Replacement: Yes Oral Surgery: No Pacemaker: No Thoracic Surgery: No Other Surgery: Yes (ESOPHAGEAL VARICIES) Social History Alcohol Use: No (FORMERLY HEAVY, QUIT 05/06/2016) Tobacco Use: No Substance Use: No Allergies-Medications (Allergen,Severity, Reaction): Coded Allergies: Levofloxacin (Verified Allergy, Severe, Rash, 06/05/16) *MDRO Multi-Drug Resistant Organism (Verified Adverse Reaction, Unknown, MRSA, 1/13/17) MRSA (sputum) - 04/12/10 MRSA (wound) - 12/09/07 Reported Meds & Prescriptions Reported Meds & Active Scripts Active Magnesium Oxide 241.3 Mg Tab 400 Mg PO BID Potassium Chloride Microencaps 20 Meq Tab 40 Meq PO DAILY Acidophilus/l-Sporogenes (Lactobacillus Acidophilus) 1 Tab Tab 1 Tab PO TID Calcium Gluconate 500 Mg Tab 1,000 Mg PO DAILY Furosemide 40 Mg Tab 40 Mg PO DAILY Protonix (Pantoprazole Sodium) 40 Mg Tab 40 Mg PO DAILY Pentoxifylline ER (Pentoxifylline) 400 Mg Tab 400 Mg PO Q8H Mephyton (Phytonadione) 5 Mg Tab 5 Mg PO DAILY K-Phos Neutral (Potassium Phos/Sodium Phos) 155-852-130 Mg Tab 250 Mg PO Q6HR Xifaxan (Rifaximin) 550 Mg Tab 550 Mg PO BID Vitamin B-1 (Thiamine HCl) 100 Mg Tab 100 Mg PO DAILY Spironolactone 100 Mg Tab 100 Mg PO DAILY Review of Systems ROS Limitations: Clinical Condition, Altered Mental Status Physical Exam Narrative GENERAL: Awake, alert, oriented to person. SKIN: Warm and dry. HEAD: Atraumatic. Normocephalic. EYES: Pupils equal and round. Scleral icterus. ENT: Mucous membranes pink and moist. Yelling apparent under the tongue. NECK: Trachea midline. No JVD. CARDIOVASCULAR: Tachycardia RESPIRATORY: No accessory muscle use. Clear to auscultation. Breath sounds equal bilaterally. GASTROINTESTINAL: Abdomen distended, fluid wave present. No tenderness to palpation. MUSCULOSKELETAL: No obvious deformities. No clubbing. No cyanosis. NEUROLOGICAL: Awake and alert oriented to person. No obvious cranial nerve deficits. Motor grossly within normal limits. Normal speech. Data Data Last Documented VS Vital Signs Date Time Temp Pulse Resp B/P Pulse Ox O2 Delivery O2 Flow Rate FiO2 06/05/16 22:15 140 14 126/83 100 Ventilator 50 06/05/16 21:04 102.7 Orders Electrocardiogram (06/05/16 21:08) Alcohol (Ethanol) (06/05/16 21:08) Ammonia (06/05/16 21:08) Complete Blood Count With Diff (06/05/16 21:08) Comprehensive Metabolic Panel (06/05/16 21:08) Prothrombin Time / Inr (Pt) (06/05/16 21:08) Act Partial Throm Time (Ptt) (06/05/16 21:08) Troponin I (06/05/16 21:08) Lactic Acid Sepsis Protocol (06/05/16 21:08) Blood Culture (06/05/16 21:08) Chest, Single Ap (06/05/16 21:08) Blood Glucose (06/05/16 21:08) Ecg Monitoring (06/05/16 21:08) Iv Access Insert/Monitor (06/05/16 21:08) Oximetry (06/05/16 21:08) Sodium Chloride 0.9% Flush (Ns Flush) (06/05/16 21:15) Sodium Chlor 0.9% 1000 Ml Inj (Ns 1000 M (06/05/16 21:08) Type And Screen (06/05/16 21:08) Urinalysis - C+S If Indicated (06/05/16 21:08) Pantoprazole Inj (Protonix Inj) (06/05/16 21:15) Pantoprazole Inj (Protonix Inj) (06/05/16 21:15) Octreotide Inj (Sandostatin Inj) (06/05/16 21:15) Ceftriaxone Inj (Rocephin Inj) (06/05/16 21:15) Red Blood Cells (Rbc) (06/05/16 21:47) Fresh Frozen Plasma (Ffp) (06/05/16 21:47) Blood Product Administration .UPON TRANSFUSION (06/05/16 21:47) Sodium Chlor 0.9% 250 Ml Inj (Ns 250 Ml (06/05/16 22:00) Ondansetron Inj (Zofran Inj) (06/05/16 22:00) Etomidate Inj (Amidate Inj) (06/05/16 21:58) Succinylcholine Inj (Quelicin Inj) (06/05/16 21:58) Fentanyl Drip (Fentanyl Drip) (06/05/16 22:10) Midazolam Inj (Versed Inj) (06/05/16 22:11) Admit Order (Ed Use Only) (06/05/16 ) Succinylcholine Inj (Quelicin Inj) (06/05/16 22:15) Etomidate Inj (Amidate Inj) (06/05/16 22:15) Neurological Rass Scale Q30MX2,Q2HX4,Q4H (06/05/16 22:12) Fentanyl Drip (Fentanyl Drip) (06/05/16 22:15) Midazolam Inj (Versed Inj) (06/05/16 22:15) Chest, Single Ap (06/05/16 ) Labs Laboratory Tests Test 06/05/16 06/05/16 21:00 21:54 Prothrombin Time 34.0 SEC Prothromb Time International 2.9 RATIO Ratio Activated Partial 81.4 SEC Thromboplast Time Sodium Level 135 MEQ/L Potassium Level 4.5 MEQ/L Chloride Level 103 MEQ/L Carbon Dioxide Level 20.7 MEQ/L Anion Gap 11 MEQ/L Blood Urea Nitrogen 8 MG/DL Creatinine 0.75 MG/DL Estimat Glomerular Filtration 99 ML/MIN Rate Random Glucose 99 MG/DL Calcium Level 7.3 MG/DL Protein Corrected Calcium 7.6 MG/DL Total Bilirubin 8.8 MG/DL Aspartate Amino Transf 101 U/L (AST/SGOT) Alanine Aminotransferase 28 U/L (ALT/SGPT) Alkaline Phosphatase 156 U/L Ammonia 90 MCMOL/L Troponin I LESS THAN 0.02 NG/ML Total Protein 6.6 GM/DL Albumin 1.9 GM/DL Ethyl Alcohol Level 83 MG/DL White Blood Count 11.4 TH/MM3 Red Blood Count 2.32 MIL/MM3 Hemoglobin 7.7 GM/DL Hematocrit 22.9 % Mean Corpuscular Volume 98.5 FL Mean Corpuscular Hemoglobin 33.0 PG Mean Corpuscular Hemoglobin 33.5 % Concent Red Cell Distribution Width 22.3 % Platelet Count 75 TH/MM3 Mean Platelet Volume 12.1 FL Neutrophils (%) (Auto) 74.4 % Lymphocytes (%) (Auto) 12.6 % Monocytes (%) (Auto) 12.7 % Eosinophils (%) (Auto) 0.1 % Basophils (%) (Auto) 0.2 % Neutrophils # (Auto) 8.5 TH/MM3 Lymphocytes # (Auto) 1.4 TH/MM3 Monocytes # (Auto) 1.5 TH/MM3 Eosinophils # (Auto) 0.0 TH/MM3 Basophils # (Auto) 0.0 TH/MM3 CBC Comment AUTO DIFF Differential Comment AUTO DIFF CONFIRMED Tear Drop Cells 1+ Ovalocytes 1+ Helmet Cells 1+ Crenated Cell 1+ Keratocytes 1+ Urine Color DARK-BROWN Urine Turbidity HAZY Urine pH 6.0 Urine Specific [place] 1.021 Urine Protein 30 mg/dL Urine Glucose (UA) TRACE mg/dL Urine Ketones TRACE mg/dL Urine Occult Blood MOD Urine Nitrite NEG Urine Bilirubin LARGE Urine Urobilinogen LESS THAN 2.0 MG/DL Urine Leukocyte Esterase NEG Urine RBC 1 /hpf Urine WBC 3 /hpf Urine Squamous Epithelial 6 /hpf Cells Urine Bacteria RARE /hpf Urine Hyaline Casts 4 /lpf Urine Granular Casts 17 /lpf Urine Mucus FEW /lpf Microscopic Urinalysis Comment CULT NOT INDICATED Lactic Acid Level 3.3 mmol/L Blood Type B POSITIVE Antibody Screen NEGATIVE Crossmatch Leukocyte-Reduced Red Blood Cells Blood Bank Comment MDM Medical Decision Making Medical Screen Exam Complete: Yes Emergency Medical Condition: Yes Medical Record Reviewed: Yes Interpretation(s) ECG shows sinus tachycardia at 136, no ST elevation or depression. Differential Diagnosis Variceal bleeding versus ulcer versus lower GI bleed versus liver failure versus sepsis versus SBP Narrative Course Patient is a 50-year-old female who comes in due to vomiting blood. Patient is actively vomiting blood, and has black tarry diarrhea. Patient placed on lunchroom monitor, 3 peripheral IVs started. Labs sent. Patient given Protonix bolus, started on Protonix drip. Given octreotide. Given Zofran, started on Rocephin for possible SBP. GI consulted, suggests elective intubation and preparation for Alexandra tube insertion. Patient was successfully intubated. Given 2 units emergent blood. Type and crossed for additional 2 units. FFP ordered. Patient admitted to the ICU. On Fentanyl and Versed for sedation. Critical Care Narrative Aggregate critical care time was 60 minutes. Time to perform other separately billable procedures was not included in the critical care time. My time did not include minutes spent treating any other patients simultaneously or on activities that did not directly contribute to the patient's treatment. The services I provided to this patient were to treat and/or prevent clinically significant deterioration that could result in: Serious illness, morbidity, mortality I provided critical care services requiring my management, as noted below: Chart data review, documentation time, medication orders and management, vital sign assessments/reviewing monitor data, ordering and reviewing lab tests, ordering and interpreting/reviewing x-rays and diagnostic studies, care of the patient and discussion of the patient with the admitting physicians. Procedures Procedure Narrative After the risks and benefits were discussed the following procedure was performed: INTUBATION: The patient was put in optimal position for the procedure. Rapid sequence intubation was initiated by me using 20 milligrams of etomidate IV and 100 milligrams of XL choline IV. The patient was intubated with a 8.0 cuffed endotracheal tube. Tube placement was confirmed by visualization of the tube and balloon passing through the cords, capnometry and subsequent chest x-ray. Breath sounds were equal and well aerated bilaterally postintubation. No breath sounds over stomach. Patient tolerated procedure well. [facility] Point of Care Internal Pos. & Neg. Controls: Passed Fecal Specimen Occult Blood: Positive Diagnosis Primary Impression: GI bleed Qualified Code: K92.0 - Gastrointestinal hemorrhage with hematemesis Additional Impressions: Liver failure Qualified Code: K72.10 - Chronic liver failure without hepatic coma Encephalopathy Sepsis Qualified Code: A41.9 - Sepsis, due to unspecified organism Admitting Information Admitting Physician Requests: Admit Kinjal Grimm MD Jun 05, 2016 23:00
[2016-06-05] MEDS: fentaNYL DRIP 250 ML IV SCH (23:11)
[2016-06-05 23:13] LABS: ANION GAP 11 MEQ/L (5-15); AST (GOT) 101 U/L (15-37); BICARBONATE 20.7 MEQ/L (21.0-32.0); BLOOD UREA NITROGEN 8 MG/DL (7-18); CHLORIDE 103 MEQ/L (98-107); GLOMERULAR FILTRATION RATE 99 ML/MIN (>89); POTASSIUM 4.5 MEQ/L (3.5-5.1); SODIUM (NA) 135 MEQ/L (136-145)
[2016-06-05 23:18] LABS: BACTERIA, URINE RARE /hpf; BLOOD, URINE MOD (NEG); COMMENT (UR) CULT NOT INDICATED; CULTURE IF INDICATED CULT NOT INDICATED; GLUCOSE,URINE TRACE mg/dL (NEG); GRANULAR CAST, URINE 17 /lpf; HYALINE CAST, URINE 4 /lpf (RARE); KETONE, URINE TRACE mg/dL (NEG); MUCUS URINE FEW /lpf (OCC); NITRITE,URINE NEG (NEG); SQUAMOUS EPITHELIAL CELL URINE 6 /hpf (0-5)
[2016-06-05 23:20] LABS: URINE COLOR DARK-BROWN (YELLW/STRAW)
[2016-06-05 23:26] LABS: ALKALINE PHOSPHATASE 156 U/L (45-117); ALT (GPT) 28 U/L (10-53); CALCIUM-PROTEIN CORRECTED 7.6 MG/DL (8.5-10.1); TOTAL BILIRUBIN ADULT 8.8 MG/DL (0.2-1.0)
[2016-06-06] VITALS (31 sets, daily range): BP systolic 72–111; BP diastolic 35–68; PULSE 120–131; RESP 16–25; TEMP 97.9–102; O2SAT 99–100
[2016-06-06 00:14] LABS: AUTOMATED NEUTROPHIL # 8.5 TH/MM3 (1.8-7.7); BASOPHIL % 0.2 % (0.0-2.0); EOSINOPHIL % 0.1 % (0.0-4.0); HEMATOCRIT 22.9 % (35.0-46.0); LYMPH % 12.6 % (9.0-44.0); LYMPHOCYTE # 1.4 TH/MM3 (1.0-4.8); MEAN CELL VOLUME 98.5 FL (80.0-100.0); MEAN CORPUSCULAR HGB CONC 33.5 % (32.0-36.0); MONO % 12.7 % (0.0-8.0); NEUT % 74.4 % (16.0-70.0); PLATELET COUNT 75 TH/MM3 (150-450); RED BLOOD COUNT 2.32 MIL/MM3 (4.00-5.30); RED CELL DISTRIBUTION WIDTH 22.3 % (11.6-17.2); WHITE BLOOD COUNT 11.4 TH/MM3 (4.0-11.0)
[2016-06-06 00:21] LABS: HEMO FLAGS AUTO DIFF
[2016-06-06 00:27] LABS: LACTIC ACID GHOST NOT REPORTABLE
[2016-06-06 00:27] LABS: BLOOD GAS CARBOXYHEMOGLOBIN 3.5 % (0-4); BLOOD GAS HCO3 14 mmol/L (22-26); BLOOD GAS METHEMOGLOBIN 1.5 % (0-2); BLOOD GAS O2 HGB SATURATION 94 % (90-100); BLOOD GAS OXYGEN CONTENT 12.9 Vol % (12.0-20.0); BLOOD GAS PCO2 26 mmHg (38-42); BLOOD GAS PO2 151 mmHG (61-120); BLOOD GAS TOTAL HGB 9.6 G/DL (12.0-16.0); OXYGEN DEVICE VENTILATOR; TEMP CORR TO 98.6
[2016-06-06 00:28] LABS: DRAW SITE RT RADIAL; FIO2 50 %; NUMBER OF ARTERIAL PUNCTURES 1; STAT NO; ULNAR PULSE PRESENT
--- NOTE | 2016-06-06 00:28 | PD.CONS ---
HPI History of Present Illness Date of consult 06/05/16 This is a 50 year old female who presents with hematemesis is currently intubated and sedated and is unable to provide much in the way of history my information was obtained from chart review patient has a history of cirrhosis and bleeding varices she has a history of alcohol abuse but apparently quit in April on presentation she was noted to be confused PFSH Past Medical History Anemia, alcohol abuse, anxiety, hyperlipidemia, cirrhosis, reflux, hypertension , hepatitis, Past Surgical History Patient is at a and joint replacement and endoscopies Coded Allergies: Levofloxacin (Verified Allergy, Severe, Rash, 06/05/16) *MDRO Multi-Drug Resistant Organism (Verified Adverse Reaction, Unknown, MRSA, 06/05/16) MRSA (sputum) - 04/12/10 MRSA (wound) - 12/09/07 Medications Magnesium Oxide 241.3 Mg Tab 400 Mg PO BID Potassium Chloride Microencaps 20 Meq Tab 40 Meq PO DAILY Acidophilus/l-Sporogenes (Lactobacillus Acidophilus) 1 Tab Tab 1 Tab PO TID Calcium Gluconate 500 Mg Tab 1,000 Mg PO DAILY Furosemide 40 Mg Tab 40 Mg PO DAILY Protonix (Pantoprazole Sodium) 40 Mg Tab 40 Mg PO DAILY Pentoxifylline ER (Pentoxifylline) 400 Mg Tab 400 Mg PO Q8H Mephyton (Phytonadione) 5 Mg Tab 5 Mg PO DAILY K-Phos Neutral (Potassium Phos/Sodium Phos) 155-852-130 Mg Tab 250 Mg PO Q6HR Xifaxan (Rifaximin) 550 Mg Tab 550 Mg PO BID Vitamin B-1 (Thiamine HCl) 100 Mg Tab 100 Mg PO DAILY Spironolactone 100 Mg Tab 100 Mg PO DAILY Family History Noncontributory Social History Patient had recently quit alcohol and does not smoke Review of Systems ROS Unobtainable at this point GI Exam Vitals I&O Vital Signs Date Time Temp Pulse Resp B/P Pulse Ox O2 Delivery O2 Flow Rate FiO2 06/05/16 23:33 127 16 110/59 100 Ventilator 06/05/16 23:28 133 16 132/76 100 Ventilator 50 06/05/16 23:23 106/57 06/05/16 23:22 126 16 102/57 100 Ventilator 50 06/05/16 23:13 128 16 107/54 100 Ventilator 50 06/05/16 23:12 129 14 127/68 98 Ventilator 50 06/05/16 22:15 140 14 126/83 100 Ventilator 50 06/05/16 22:13 139 14 153/99 100 Ventilator 50 06/05/16 22:05 100 50 06/05/16 21:12 98 Room Air 06/05/16 21:08 18 06/05/16 21:08 137 20 101/74 98 Room Air 06/05/16 21:04 102.7 137 20 101/74 96 I/O 06/05/16 06/05/16 06/05/16 06/06/16 06/06/16 06/06/16 07:00 15:00 23:00 07:00 15:00 23:00 Intake Total 250 ml Balance 250 ml Intake Packed Cells 250 ml Imaging Last Impressions Chest X-Ray 06/05/162107 Signed Impressions: Service Date/Time: Sunday, June 05, 2016 21:48 - CONCLUSION: No acute disease. Juan Malave MD Laboratory Test 06/05/16 06/05/16 21:00 21:54 Prothrombin Time 34.0 SEC Prothromb Time International 2.9 RATIO Ratio Activated Partial 81.4 SEC Thromboplast Time Urine Color DARK-BROWN Urine Turbidity HAZY Urine pH 6.0 Urine Specific [place] 1.021 Urine Protein 30 mg/dL Urine Glucose (UA) TRACE mg/dL Urine Ketones TRACE mg/dL Urine Occult Blood MOD Urine Nitrite NEG Urine Bilirubin LARGE Urine Urobilinogen LESS THAN 2.0 MG/DL Urine Leukocyte Esterase NEG Urine RBC 1 /hpf Urine WBC 3 /hpf Urine Squamous Epithelial 6 /hpf Cells Urine Bacteria RARE /hpf Urine Hyaline Casts 4 /lpf Urine Granular Casts 17 /lpf Urine Mucus FEW /lpf Microscopic Urinalysis Comment CULT NOT INDICATED Sodium Level 135 MEQ/L Potassium Level 4.5 MEQ/L Chloride Level 103 MEQ/L Carbon Dioxide Level 20.7 MEQ/L Anion Gap 11 MEQ/L Blood Urea Nitrogen 8 MG/DL Creatinine 0.75 MG/DL Estimat Glomerular Filtration 99 ML/MIN Rate Random Glucose 99 MG/DL Lactic Acid Level 3.3 mmol/L Calcium Level 7.3 MG/DL Protein Corrected Calcium 7.6 MG/DL Total Bilirubin 8.8 MG/DL Aspartate Amino Transf 101 U/L (AST/SGOT) Alanine Aminotransferase 28 U/L (ALT/SGPT) Alkaline Phosphatase 156 U/L Ammonia 90 MCMOL/L Troponin I LESS THAN 0.02 NG/ML Total Protein 6.6 GM/DL Albumin 1.9 GM/DL Ethyl Alcohol Level 83 MG/DL Blood Type B POSITIVE Antibody Screen NEGATIVE Crossmatch Leukocyte-Reduced Red Blood Cells Blood Bank Comment Date/Time Procedure Status Source Growth 06/05/16 21:00 Aerobic Blood Culture Received Blood Peripheral Pending 06/05/16 21:00 Anaerobic Blood Culture Received Blood Peripheral Pending Physical Examination HEENT: Pupils round and reactive to light; normocephalic; atraumatic; jaundice. Throat is clear. Intubated sedated NECK: Neck is supple, no JVD, no lymphadenopathy. CHEST: Chest is clear to auscultation and percussion. CARDIAC: Regular rate and rhythm with no murmur gallop or rubs. ABDOMEN: Soft, nondistended, nontender; no hepatosplenomegaly; bowel sounds are present in all four quadrants. EXTREMITIES: No clubbing, cyanosis, or edema. SKIN: Normal; no rash; jaundice. 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
[2016-06-06 00:53] LABS: CRENATED RBCS 1+ (NORMAL); KERATOCYTES 1+ (NORMAL); OVALOCYTES 1+ (NORMAL); TEARDROP RBCS 1+ (NORMAL)
[2016-06-06 00:54] LABS: HELMET CELLS 1+ (NORMAL); SCAN/DIFF AUTO DIFF CONFIRMED
[2016-06-06 02:00] LABS: REVIEW FLAG FINAL
[2016-06-06] MEDS ORDERED: RESP: ALBUTEROL 2.5 MG/IPRATROPIUM 0.5 MG NEB (PRN) INH (03:30)
[2016-06-06] MEDS ORDERED: MISCELLANEOUS NURSING INFORMATION XX SCH (03:30)
[2016-06-06] MEDS: SODIUM CHLOR 0.9% 1000 ML INJ 1,000 ML IV SCH ×2 (03:30→15:25)
[2016-06-06] MEDS ORDERED: SODIUM CHLORIDE 0.9% FLUSH 5 ML FLUSH IV FLUSH PRN (03:30)
[2016-06-06] MEDS ORDERED: ONDANSETRON HCL 4 MG/2 ML VIAL IV PRN (03:30)
[2016-06-06] MEDS ORDERED: CHLORHEXIDINE GLUCONATE 2 % 1 PACK (2 CLOTHS) TOP PRN (03:30)
[2016-06-06] MEDS ORDERED: PROPOFOL 1000 MG/100 ML INJ 100 ML IV SCH (04:00)
[2016-06-06] MEDS: CHLORHEXIDINE GLUCONATE 2 % 1 PACK (2 CLOTHS) TOP SCH (04:00)
--- NOTE | 2016-06-06 04:19 | HHI.HP ---
[facility] Service Critical Care Medicine Primary Care Physician No Primary Care Physician Admission Diagnosis Variceal bleeding Diagnosis: Chief Complaint: Vomiting blood Travel History International Travel<30 Days: No Contact w/Intl Traveler <30 Da: No Traveled to Known Affected Are: No History of Present Illness 50 y/o woman with alcoholic hepatic cirrhosis and documented portal hypertension presents with massive UGI hematemesis. She has bled from esophageal varices before. ETOH 80 on admission. Endoscopy on hold pending correction of clotting defect. PRBCs and FFP infused. Past Family Social History Allergies: Coded Allergies: Levofloxacin (Verified Allergy, Severe, Rash, 06/05/16) *MDRO Multi-Drug Resistant Organism (Verified Adverse Reaction, Unknown, MRSA, 06/05/16) MRSA (sputum) - 04/12/10 MRSA (wound) - 12/09/07 Past Medical History Past Medical History Anemia: Yes Arthritis: No Asthma: No Autoimmune Disease: No Blood Disorders: Yes (ETOH ABUSE) Anxiety: Yes Depression: No Heart Rhythm Problems: No Cancer: No Cardiovascular Problems: Yes High Cholesterol: Yes Chemotherapy: No Chest Pain: No Congestive Heart Failure: No Cirrhosis: Yes COPD: No Cerebrovascular Accident: No Diabetes: No Diminished Hearing: No Endocrine: No Gastrointestinal Disorders: Yes (ESOPHAGEAL VARICIES.) GERD: Yes Glaucoma: No Genitourinary: No Hepatitis: Yes Hiatal Hernia: No Hypertension: Yes Immune Disorder: No Kidney Stones: No Musculoskeletal: No Neurologic: No Psychiatric: Yes Reproductive: No Respiratory: Yes Immunizations Current: Yes Migraines: No Myocardial Infarction: No Radiation Therapy: No Renal Failure: No Seizures: No Sickle Cell Disease: No Sleep Apnea: No Thyroid Disease: No Ulcer: Yes : 3 Para: 2 Past Surgical History Abdominal Surgery: Yes (egd /colonoscopy 04/2016) AICD: No Appendectomy: No Arteriovenous Shunt: No Cardiac Surgery: No Section: Yes Cholecystectomy: No Ear Surgery: No Endocrine Surgery: No Eye Surgery: No Gynecologic Surgery: No Insulin Pump: No Joint Replacement: Yes Oral Surgery: No Pacemaker: No Thoracic Surgery: No Other Surgery: Yes (ESOPHAGEAL VARICIES) Social History Alcohol Use: No (FORMERLY HEAVY, QUIT 05/06/2016) Tobacco Use: No Substance Use: No Allergies-Medications Allergies-Medications (Allergen,Severity, Reaction): Coded Allergies: Levofloxacin (Verified Allergy, Severe, Rash, 06/05/16) *MDRO Multi-Drug Resistant Organism (Verified Adverse Reaction, Unknown, MRSA, 06/05/16) MRSA (sputum) - 04/12/10 MRSA (wound) - 12/09/07 Reported Meds & Prescriptions Reported Meds & Active Scripts Active Magnesium Oxide 241.3 Mg Tab 400 Mg PO BID Potassium Chloride Microencaps 20 Meq Tab 40 Meq PO DAILY Acidophilus/l-Sporogenes (Lactobacillus Acidophilus) 1 Tab Tab 1 Tab PO TID Calcium Gluconate 500 Mg Tab 1,000 Mg PO DAILY Furosemide 40 Mg Tab 40 Mg PO DAILY Protonix (Pantoprazole Sodium) 40 Mg Tab 40 Mg PO DAILY Pentoxifylline ER (Pentoxifylline) 400 Mg Tab 400 Mg PO Q8H Mephyton (Phytonadione) 5 Mg Tab 5 Mg PO DAILY K-Phos Neutral (Potassium Phos/Sodium Phos) 155-852-130 Mg Tab 250 Mg PO Q6HR Xifaxan (Rifaximin) 550 Mg Tab 550 Mg PO BID Vitamin B-1 (Thiamine HCl) 100 Mg Tab 100 Mg PO DAILY Spironolactone 100 Mg Tab 100 Mg PO DAILY Physical Exam Vital Signs Vital Signs Date Time Temp Pulse Resp B/P Pulse Ox O2 Delivery O2 Flow Rate FiO2 06/06/16 01:37 100 50 06/05/16 23:49 100 50 06/05/16 23:45 100 100 06/05/16 23:33 127 16 110/59 100 Ventilator 06/05/16 23:28 133 16 132/76 100 Ventilator 50 06/05/16 23:23 106/57 06/05/16 23:22 126 16 102/57 100 Ventilator 50 06/05/16 23:13 128 16 107/54 100 Ventilator 50 06/05/16 23:12 129 14 127/68 98 Ventilator 50 06/05/16 22:15 140 14 126/83 100 Ventilator 50 06/05/16 22:13 139 14 153/99 100 Ventilator 50 06/05/16 22:05 100 50 06/05/16 21:12 98 Room Air 06/05/16 21:08 18 06/05/16 21:08 137 20 101/74 98 Room Air 06/05/16 21:04 102.7 137 20 101/74 96 Laboratory Laboratory Tests Test 06/05/16 06/05/16 06/06/16 06/06/16 21:00 21:54 00:15 00:40 Prothrombin Time 34.0 Prothromb Time International 2.9 Ratio Activated Partial 81.4 Thromboplast Time Sodium Level 135 Potassium Level 4.5 Chloride Level 103 Carbon Dioxide Level 20.7 Anion Gap 11 Blood Urea Nitrogen 8 Creatinine 0.75 Estimat Glomerular Filtration 99 Rate Random Glucose 99 Calcium Level 7.3 Protein Corrected Calcium 7.6 Total Bilirubin 8.8 Aspartate Amino Transf 101 (AST/SGOT) Alanine Aminotransferase 28 (ALT/SGPT) Alkaline Phosphatase 156 Ammonia 90 Troponin I LESS THAN 0.02 Total Protein 6.6 Albumin 1.9 Ethyl Alcohol Level 83 White Blood Count 11.4 Red Blood Count 2.32 Hemoglobin 7.7 Hematocrit 22.9 Mean Corpuscular Volume 98.5 Mean Corpuscular Hemoglobin 33.0 Mean Corpuscular Hemoglobin 33.5 Concent Red Cell Distribution Width 22.3 Platelet Count 75 Mean Platelet Volume 12.1 Neutrophils (%) (Auto) 74.4 Lymphocytes (%) (Auto) 12.6 Monocytes (%) (Auto) 12.7 Eosinophils (%) (Auto) 0.1 Basophils (%) (Auto) 0.2 Neutrophils # (Auto) 8.5 Lymphocytes # (Auto) 1.4 Monocytes # (Auto) 1.5 Eosinophils # (Auto) 0.0 Basophils # (Auto) 0.0 CBC Comment AUTO DIFF Differential Comment AUTO DIFF CONFIRMED Tear Drop Cells 1+ Ovalocytes 1+ Helmet Cells 1+ Crenated Cell 1+ Keratocytes 1+ Urine Color DARK-BROWN Urine Turbidity HAZY Urine pH 6.0 Urine Specific [place] 1.021 Urine Protein 30 Urine Glucose (UA) TRACE Urine Ketones TRACE Urine Occult Blood MOD Urine Nitrite NEG Urine Bilirubin LARGE Urine Urobilinogen LESS THAN 2.0 Urine Leukocyte Esterase NEG Urine RBC 1 Urine WBC 3 Urine Squamous Epithelial 6 Cells Urine Bacteria RARE Urine Hyaline Casts 4 Urine Granular Casts 17 Urine Mucus FEW Microscopic Urinalysis Comment CULT NOT INDICATED Lactic Acid Level 3.3 5.1 Blood Type B POSITIVE Antibody Screen NEGATIVE Crossmatch Leukocyte-Reduced Red Blood Cells Blood Bank Comment Blood Gas Puncture Site RT RADIAL Blood Gas Patient Temperature 98.6 Blood Gas HCO3 14 Blood Gas Base Excess -10.0 Blood Gas Oxygen Saturation 94 Arterial Blood pH 7.37 Arterial Blood Partial 26 Pressure CO2 Arterial Blood Partial 151 Pressure O2 Arterial Blood Oxygen Content 12.9 Arterial Blood 3.5 Carboxyhemoglobin Arterial Blood Methemoglobin 1.5 Blood Gas Hemoglobin 9.6 Oxygen Delivery Device VENTILATOR Blood Gas Ventilator Setting Blood Gas Inspired Oxygen 50 Test 06/06/16 01:35 Hemoglobin 10.2 Hematocrit 31.0 Date/Time Procedure Status Source Growth 06/05/16 21:00 Aerobic Blood Culture Received Blood Peripheral Pending 06/05/16 21:00 Anaerobic Blood Culture Received Blood Peripheral Pending Result Diagram: 06/06/16 0135 06/05/16 2100 Imaging Gen: Ill-appearing, ashen woman. Chronically ill. Head: Conjunctival icterus. Neclk: Supple. Orally intubated. Lungs: Few scattered rhonchi, no crackles. Mostly clear with good air movement. Heart: NL S1S2, crisp sounds. Soft systolic murmur LSB. Marked JVD. Abdomen: Chronically distended. Bowel sounds high pitched, numerous. Tympanitic. No involuntary guarding. Extremities: Wasted muscle, tepid but perfusion adequate. Neuro: Sedated, intubated. Assessment and Plan Problem List: (1) Acute respiratory failure with hypoxia ICD Code: J96.01 Status: Acute (2) Acute upper GI bleed ICD Code: K92.2 Status: Acute (3) Cirrhosis with alcoholism ICD Code: K70.30 Status: Acute (4) Coagulopathy ICD Code: D68.9 Status: Acute (5) Acute blood loss anemia ICD Code: D62 Status: Acute (6) End stage liver disease ICD Code: K72.90 Status: Acute Assessment and Plan Plan: 1. PRVC vent mode. 2. Propofol sedation. 3. Fentanyl gtt. 4. Octreotide gtt. 5. Protonix gtt. 6. FFP. 7. Vit K. 8. Serial Hgb. 9. GI consult. 10. Counseling re ETOH. Overall impression: Presented critically ill with hemorrhagic shock from probable variceal bleed. End-stage hepatic failure with intractable ascites. Continues to drink. High risk for early . Critical Care 39 mins Matthew Sena MD Jun 06, 2016 04:19
[2016-06-06] MEDS: PROPOFOL 1000 MG/100 ML INJ 100 ML IV SCH ×2 (04:52→10:16)
[2016-06-06] MEDS: OCTREOTIDE INJ 500 MCG in SODIUM CHLORID 0.9% 500 ML INJ 499.5 ML IV SCH (05:16)
[2016-06-06 05:34] LABS: HEMATOCRIT 35.2 % (35.0-46.0)
[2016-06-06 05:38] LABS: REVIEW FLAG FINAL
[2016-06-06 05:51] LABS: APTT (PATIENT) 69.6 SEC (24.3-30.1); INTERNATIONAL NORMALIZED RATIO 2.7 RATIO; PROTHROMBIN TIME - PATIENT 30.8 SEC (9.8-11.6)
[2016-06-06] MEDS: PANTOPRAZOLE INJ 80 MG in SODIUM CHLORIDE 0.9% INJ 100 ML IV SCH ×2 (07:33→17:00)
[2016-06-06] MEDS: SODIUM CHLORIDE 0.9% FLUSH 5 ML FLUSH IV FLUSH SCH ×2 (09:00→21:00)
[2016-06-06] MEDS: ALBUMIN HUMAN 5% 25 GM/500 ML BOTTLE IV SCH ×2 (10:00→22:00)
[2016-06-06] MEDS: NOREPINEPHRINE 4 MG/D5W 250 ML IV SCH ×4 (10:17→19:27)
[2016-06-06] MEDS: fentaNYL DRIP 250 ML IV SCH (10:17)
[2016-06-06] MEDS ORDERED: ALBUMIN HUMAN 5% 12.5 GM/250 ML BOTTLE IV ONE (10:22)
[2016-06-06] MEDS ORDERED: ALBUMIN HUMAN 5% 25 GM/500 ML BOTTLE IV ONE (10:30)
[2016-06-06] MEDS ORDERED: VASOPRESSIN INJ 20 UNITS/ML VIAL ONE (11:40)
[2016-06-06] MEDS ORDERED: LACTATED RINGER'S 1000 ML INJ 1,000 ML IV ONE ×2 (12:30)
[2016-06-06 12:37] LABS: HEMATOCRIT 25.4 % (35.0-46.0)
[2016-06-06 12:44] LABS: BLOOD GAS BASE EXCESS -15.4 mmol/L (-2-2); BLOOD GAS CARBOXYHEMOGLOBIN 1.2 % (0-4); BLOOD GAS HCO3 10 mmol/L (22-26); BLOOD GAS METHEMOGLOBIN 0.6 % (0-2); BLOOD GAS O2 HGB SATURATION 97 % (90-100); BLOOD GAS OXYGEN CONTENT 11.8 Vol % (12.0-20.0); BLOOD GAS PCO2 24 mmHg (38-42); BLOOD GAS PO2 189 mmHg (61-120); BLOOD GAS TOTAL HGB 8.3 G/DL (12.0-16.0); TEMP CORR TO 98.6
[2016-06-06 12:45] LABS: CRITICAL VALUE YES; DRAW SITE ART LINE; FIO2 50 %; OXYGEN DEVICE VENTILATOR; STAT NO; VENT SETTINGS 400/14/+5/0.9
[2016-06-06 12:45] LABS: REVIEW FLAG FINAL
--- NOTE | 2016-06-06 12:51 | RADRPT ---
EXAM DATE/TIME: 06/06/2016 11:57 [facility] COMPARISON: No previous studies available for comparison. INDICATIONS : Central line placement. MEDICAL HISTORY : None. SURGICAL HISTORY : None. ENCOUNTER: Initial ACUITY: 1 day PAIN SCORE: Non-responsive. LOCATION: Bilateral chest FINDINGS: A single view of the chest demonstrates there has been interval placement of a right IJ central venou s catheter. Its tip overlies the right atrium. There is no visible pneumothorax. ET tube is in goo d position. Small lung volumes. CONCLUSION: New right IJ central venous catheter with its tip overlying the right atrium. Arjun Lobo MD on June 06, 2016 at 12:45 Board Certified Radiologist. This report was verified electronically.
[2016-06-06] MEDS: PHYTONADIONE 10 MG/ML VIAL SQ SCH (14:00)
[2016-06-06] MEDS ORDERED: VASOPRESSIN 40 U/100 ML D5W Titrate, Post Cardiac Surgery IV SCH ×2 (14:45)
[2016-06-06] MEDS: ALBUMIN HUMAN 25% 25 GM/100 ML BAGP IV SCH ×2 (15:00→19:53)
--- NOTE | 2016-06-06 16:10 | EKG ---
Date Performed: 06/05/2016 Time Performed: 21:24:12 PTAGE: 50 years EKG: SINUS TACHYCARDIA Rate has increased significantly since prior study with nonspecific ST-T wave changes ABNORMAL RHYTHM ECG PREVIOUS TRACING : 05/20/2016 18.31 DOCTOR: Kris Rios Interpretating Date/Time 06/06/2016 16:09:00
[2016-06-06 17:29] LABS: REVIEW FLAG FINAL
[2016-06-06 17:31] LABS: HEMATOCRIT 20.8 % (35.0-46.0)
[2016-06-06] MEDS ORDERED: cefTRIAXone INJ 1,000 MG in SODIUM CHLORIDE 0.9% INJ 100 ML IV SCH (18:00)
--- NOTE | 2016-06-06 19:51 | HHI.GIFU ---
Subjective Remarks Intubated unresponsive Objective Vitals I&O Vital Signs Date Time Temp Pulse Resp B/P Pulse Ox O2 Delivery O2 Flow Rate FiO2 06/06/16 18:50 98.1 131 25 80/40 100 06/06/16 18:10 98.1 130 20 80/38 100 06/06/16 18:00 130 06/06/16 17:56 100 50 06/06/16 17:55 98.1 128 18 81/39 100 06/06/16 17:30 98.1 130 22 72/35 100 06/06/16 17:25 98.2 130 22 80/40 100 06/06/16 17:10 98.1 130 20 85/49 100 06/06/16 17:05 98.1 130 22 85/49 100 06/06/16 16:45 98.1 130 21 87/49 100 06/06/16 16:30 98.3 130 25 86/47 100 06/06/16 16:00 50 06/06/16 16:00 98.4 130 22 89/51 100 06/06/16 16:00 98.3 130 22 89/51 100 06/06/16 16:00 128 06/06/16 15:30 98.6 126 23 91/47 100 06/06/16 15:15 98.4 128 24 89/42 100 06/06/16 14:55 98.4 127 20 86/43 100 06/06/16 14:30 98.4 122 20 92/46 100 06/06/16 14:15 98.4 126 22 94/46 100 06/06/16 14:00 130 06/06/16 12:00 50 06/06/16 12:00 130 06/06/16 12:00 98.4 122 20 87/44 100 06/06/16 10:41 100 50 06/06/16 10:00 128 06/06/16 08:00 100.2 126 18 89/53 100 06/06/16 08:00 122 06/06/16 08:00 50 06/06/16 07:00 100 Mechanical Ventilator 50 06/06/16 06:00 120 06/06/16 04:30 100 50 06/06/16 04:00 100.8 124 17 83/53 100 06/06/16 04:00 50 06/06/16 04:00 124 06/06/16 02:00 128 06/06/16 01:37 100 50 06/06/16 00:00 126 06/06/16 00:00 50 06/06/16 00:00 102.0 126 16 111/68 100 06/05/16 23:49 100 50 06/05/16 23:45 100 100 06/05/16 23:33 127 16 110/59 100 Ventilator 06/05/16 23:28 133 16 132/76 100 Ventilator 50 06/05/16 23:23 106/57 06/05/16 23:22 126 16 102/57 100 Ventilator 50 06/05/16 23:13 128 16 107/54 100 Ventilator 50 06/05/16 23:12 129 14 127/68 98 Ventilator 50 06/05/16 22:15 140 14 126/83 100 Ventilator 50 06/05/16 22:13 139 14 153/99 100 Ventilator 50 06/05/16 22:05 100 50 06/05/16 21:12 98 Room Air 06/05/16 21:08 18 06/05/16 21:08 137 20 101/74 98 Room Air 06/05/16 21:04 102.7 137 20 101/74 96 I/O 06/05/16 06/05/16 06/05/16 06/06/16 06/06/16 06/06/16 07:00 15:00 23:00 07:00 15:00 23:00 Intake Total 630 ml 5271 ml Output Total 50 ml 5 ml Balance 580 ml 5266 ml Intake IV Total 380 ml 4916 ml Packed Cells 250 ml FFP 355 ml Output Urine Total 50 ml 5 ml # Bowel Movements 0 0 Laboratory Laboratory Tests Test 06/05/16 06/05/16 06/05/16 06/06/16 21:00 21:54 23:58 00:15 Prothrombin Time 34.0 Prothromb Time International 2.9 Ratio Activated Partial 81.4 Thromboplast Time Sodium Level 135 Potassium Level 4.5 Chloride Level 103 Carbon Dioxide Level 20.7 Anion Gap 11 Blood Urea Nitrogen 8 Creatinine 0.75 Estimat Glomerular Filtration 99 Rate Random Glucose 99 Calcium Level 7.3 Protein Corrected Calcium 7.6 Total Bilirubin 8.8 Aspartate Amino Transf 101 (AST/SGOT) Alanine Aminotransferase 28 (ALT/SGPT) Alkaline Phosphatase 156 Ammonia 90 Troponin I LESS THAN 0.02 Total Protein 6.6 Albumin 1.9 Ethyl Alcohol Level 83 White Blood Count 11.4 Red Blood Count 2.32 Hemoglobin 7.7 Hematocrit 22.9 Mean Corpuscular Volume 98.5 Mean Corpuscular Hemoglobin 33.0 Mean Corpuscular Hemoglobin 33.5 Concent Red Cell Distribution Width 22.3 Platelet Count 75 Mean Platelet Volume 12.1 Neutrophils (%) (Auto) 74.4 Lymphocytes (%) (Auto) 12.6 Monocytes (%) (Auto) 12.7 Eosinophils (%) (Auto) 0.1 Basophils (%) (Auto) 0.2 Neutrophils # (Auto) 8.5 Lymphocytes # (Auto) 1.4 Monocytes # (Auto) 1.5 Eosinophils # (Auto) 0.0 Basophils # (Auto) 0.0 CBC Comment AUTO DIFF Differential Comment AUTO DIFF CONFIRMED Tear Drop Cells 1+ Ovalocytes 1+ Helmet Cells 1+ Crenated Cell 1+ Keratocytes 1+ Urine Color DARK-BROWN Urine Turbidity HAZY Urine pH 6.0 Urine Specific [place] 1.021 Urine Protein 30 Urine Glucose (UA) TRACE Urine Ketones TRACE Urine Occult Blood MOD Urine Nitrite NEG Urine Bilirubin LARGE Urine Urobilinogen LESS THAN 2.0 Urine Leukocyte Esterase NEG Urine RBC 1 Urine WBC 3 Urine Squamous Epithelial 6 Cells Urine Bacteria RARE Urine Hyaline Casts 4 Urine Granular Casts 17 Urine Mucus FEW Microscopic Urinalysis Comment CULT NOT INDICATED Lactic Acid Level 3.3 Blood Type B POSITIVE Antibody Screen NEGATIVE Crossmatch Leukocyte-Reduced Red Blood Cells Blood Bank Comment Nasal Screen MRSA (PCR) NEGATIVE Blood Gas Puncture Site RT RADIAL Blood Gas Patient Temperature 98.6 Blood Gas HCO3 14 Blood Gas Base Excess -10.0 Blood Gas Oxygen Saturation 94 Arterial Blood pH 7.37 Arterial Blood Partial 26 Pressure CO2 Arterial Blood Partial 151 Pressure O2 Arterial Blood Oxygen Content 12.9 Arterial Blood 3.5 Carboxyhemoglobin Arterial Blood Methemoglobin 1.5 Blood Gas Hemoglobin 9.6 Oxygen Delivery Device VENTILATOR Blood Gas Ventilator Setting Blood Gas Inspired Oxygen 50 Test 06/06/16 06/06/16 06/06/16 06/06/16 00:40 01:35 04:55 05:02 Lactic Acid Level 5.1 4.6 Hemoglobin 10.2 11.4 Hematocrit 31.0 35.2 Prothrombin Time 30.8 Prothromb Time International 2.7 Ratio Activated Partial 69.6 Thromboplast Time Test 106/06/16 06/06/16 06/06/16 12:09 12:32 17:15 17:48 Hemoglobin 8.4 6.9 Hematocrit 25.4 20.8 Blood Gas Puncture Site ART LINE Blood Gas Patient Temperature 98.6 Blood Gas HCO3 10 Blood Gas Base Excess -15.4 Blood Gas Oxygen Saturation 97 Arterial Blood pH 7.26 Arterial Blood Partial 24 Pressure CO2 Arterial Blood Partial 189 Pressure O2 Arterial Blood Oxygen Content 11.8 Arterial Blood 1.2 Carboxyhemoglobin Arterial Blood Methemoglobin 0.6 Blood Gas Hemoglobin 8.3 Oxygen Delivery Device VENTILATOR Blood Gas Ventilator Setting 400/14/+5/0.9 Blood Gas Inspired Oxygen 50 Blood Type B POSITIVE Crossmatch Leukocyte-Reduced Red Blood Cells Blood Bank Comment Date/Time Procedure Status Source Growth 06/05/16 21:00 Aerobic Blood Culture - Preliminary Resulted Blood Peripheral NO GROWTH IN 1 DAY 06/05/16 21:00 Anaerobic Blood Culture - Preliminary Resulted Blood Peripheral NO GROWTH IN 1 DAY Imaging Last Impressions Chest X-Ray 06/05/162107 Signed Impressions: Service Date/Time: Sunday, June 05, 2016 21:48 - CONCLUSION: No acute disease. Juan Malave MD Physical Exam CHEST: Chest is clear to auscultation and percussion. CARDIAC: Regular rate and rhythm with no murmur gallop or rubs. ABDOMEN: Soft, nondistended, nontender; mild ascites; bowel sounds are present in all four quadrants. EXTREMITIES: No clubbing, cyanosis, or edema. SKIN: Normal; no rash; no jaundice. 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
[2016-06-06] MEDS ORDERED: NOREPINEPHRINE 16 MG/D5W 250 ML IV SCH ×2 (21:30)
[2016-06-06 22:30] LABS: HEMATOCRIT 26.2 % (35.0-46.0); REVIEW FLAG FINAL
[2016-06-07] VITALS (13 sets, daily range): BP systolic 54–82; BP diastolic 23–42; PULSE 54–127; RESP 14–27; TEMP 98.1–100; O2SAT 96–100
[2016-06-07] MEDS ORDERED: NOREPINEPHRINE INJ 16 MG in DEXTROSE 5% IN WATER INJ 234 ML IV SCH ×2 (00:15)
[2016-06-07] MEDS: OCTREOTIDE INJ 500 MCG in SODIUM CHLORID 0.9% 500 ML INJ 499.5 ML IV SCH (01:01)
[2016-06-07] MEDS: ALBUMIN HUMAN 25% 25 GM/100 ML BAGP IV SCH (03:00)
[2016-06-07] MEDS: PANTOPRAZOLE INJ 80 MG in SODIUM CHLORIDE 0.9% INJ 100 ML IV SCH (03:00)
[2016-06-07] MEDS: SODIUM CHLOR 0.9% 1000 ML INJ 1,000 ML IV SCH (03:20)
[2016-06-07 03:44] LABS: AUTOMATED NEUTROPHIL # 4.4 TH/MM3 (1.8-7.7); BASOPHIL % 0.4 % (0.0-2.0); EOSINOPHIL # 0.1 TH/MM3 (0-0.4); EOSINOPHIL % 2.1 % (0.0-4.0); HEMATOCRIT 25.9 % (35.0-46.0); LYMPH % 10.9 % (9.0-44.0); LYMPHOCYTE # 0.6 TH/MM3 (1.0-4.8); MEAN CORPUSCULAR HEMOGLOBIN 32.2 PG (27.0-34.0); MEAN CORPUSCULAR HGB CONC 33.2 % (32.0-36.0); NEUT % 85.6 % (16.0-70.0); PLATELET COUNT 39 TH/MM3 (150-450); RED BLOOD COUNT 2.67 MIL/MM3 (4.00-5.30); RED CELL DISTRIBUTION WIDTH 22.1 % (11.6-17.2); WHITE BLOOD COUNT 5.2 TH/MM3 (4.0-11.0)
[2016-06-07 03:46] LABS: HEMO FLAGS AUTO DIFF
[2016-06-07 04:00] LABS: INTERNATIONAL NORMALIZED RATIO 2.5 RATIO; PROTHROMBIN TIME - PATIENT 28.9 SEC (9.8-11.6)
[2016-06-07] MEDS: CHLORHEXIDINE GLUCONATE 2 % 1 PACK (2 CLOTHS) TOP SCH (04:00)
[2016-06-07 04:17] LABS: POTASSIUM 4.8 MEQ/L (3.5-5.1); TOTAL BILIRUBIN ADULT 11.4 MG/DL (0.2-1.0)
[2016-06-07 04:21] LABS: CALCIUM-PROTEIN CORRECTED 7.3 MG/DL (8.5-10.1)
[2016-06-07] MEDS ORDERED: DEXTROSE 50% IN WATER 50 ML SYRINGE ONE ×2 (04:22→05:05)
--- NOTE | 2016-06-07 05:02 | RADRPT ---
EXAM DATE/TIME: 06/07/2016 04:06 [facility] COMPARISON: CHEST SINGLE AP, June 06, 2016, 11:57. INDICATIONS : Please evaluate after respiratory failure. MEDICAL HISTORY : None. SURGICAL HISTORY : None. ENCOUNTER: Subsequent ACUITY: 2 days PAIN SCORE: Non-responsive. LOCATION: Bilateral chest FINDINGS: The cardiac silhouette is enlarged in transverse diameter. Endotracheal tube is in good position abov e the len. There is subsegmental atelectasis in the left base. The right lung is free of acute par enchymal opacity. CONCLUSION: 1. Cardiomegaly. Subsegmental atelectasis left base. Taj Fraser MD on June 07, 2016 at 4:57 Board Certified Radiologist. This report was verified electronically.
[2016-06-07 05:06] LABS: BANDS 30 % (0-6); CORRECTED NUCLEATED RBC 4 /100 WBC (0-0); CRENATED RBCS 1+ (NORMAL); EOSINOPHILS 1 % (0-4); METAMYELOCYTES 14 % (0-1); MYELOCYTES 3 % (0-0); NEUTROPHIL # MANUAL DIFF 4.3 TH/MM3 (1.8-7.7); PLATELET ESTIMATE SMEAR LOW (NORMAL); PLATELET MORPHOLOGY NORMAL (NORMAL); POLYS (SEG NEUTROPHILS) 35 % (16-70); SCAN/DIFF FINAL DIFF MANUAL; TEARDROP RBCS 1+ (NORMAL); WBC DIFF SAMPLE 100
[2016-06-07 05:07] LABS: ACANTHOCYTES OCC (NORMAL); KERATOCYTES OCC (NORMAL)
[2016-06-07 06:35] LABS: BLOOD GAS BASE EXCESS -20.7 mmol/L (-2-2); BLOOD GAS CARBOXYHEMOGLOBIN 0.7 % (0-4); BLOOD GAS HCO3 8 mmol/L (22-26); BLOOD GAS METHEMOGLOBIN 1.1 % (0-2); BLOOD GAS O2 HGB SATURATION 97 % (90-100); BLOOD GAS OXYGEN CONTENT 11.5 Vol % (12.0-20.0); BLOOD GAS PCO2 37 mmHg (38-42); BLOOD GAS PO2 217 mmHg (61-120); TEMP CORR TO 98.6
[2016-06-07 06:36] LABS: CRITICAL VALUE YES; OXYGEN DEVICE VENTILATOR
[2016-06-07 06:37] LABS: DRAW SITE ART LINE; FIO2 100 %; STAT NO; VENT SETTINGS PRVC/AC
[2016-06-07] MEDS ORDERED: SODIUM BICARBONATE 8.4% INJ 150 MEQ in DEXTROSE 5% IN WATE 1000ML INJ 1,000 ML IV SCH ×2 (06:45)
[2016-06-07] MEDS ORDERED: SODIUM BICARBONATE 8.4% INJ 50 MEQ/50 ML SYR IV PUSH ONE ×2 (06:45)
[2016-06-07] MEDS ORDERED: CHLORHEXIDINE 0.12% (ORAL KIT) 15 ML CUP MT SCH (08:00)
--- NOTE | 2016-06-07 08:27 | PD.PROCEDR ---
GI Procedure REFERRING PHYSICIAN Dr. Sena PROCEDURE PERFORMED EGD with Alexandra tube placement INDICATION FOR PROCEDURE Upper GI bleed PROCEDURE: The procedure, risks and benefits were discussed with Ms. Membreno and informed consent was obtained. No sedation used for the procedure except for hurricane spray and the patient tolerated procedure well. She was placed in the left lateral decubitus position. EGD: The Pentax videoscope was introduced through the oropharynx and advanced to the second portion of the duodenum under direct visualization. Retroflexion was performed in the stomach. FINDINGS: The esophagus there were no obvious varices noted no stigmata of recent bleeding but also of note is that the patient's blood pressure is very low and as such varices probably have collapsed The stomach there was a small amount of blood noted in the fundus and upper gastric body no varices were seen and active bleeding was seen in the gastric mucosa appeared to be somewhat edematous and a cobblestone appearance pattern otherwise gastric mucosa was unremarkable The duodenum this appeared to be unremarkable and within normal limits ESTIMATED BLOOD LOSS: None SPECIMENS REMOVED: None COMPLICATIONS: None IMPRESSION: Portal gastropathy Upper GI bleed unclear source PLAN: Continue present supportive care Edmundo Meyer MD Jun 07, 2016 08:27
--- NOTE | 2016-06-07 08:53 | HHI.CCPN ---
Subjective Remarks/Hospital Course 50 y/o woman with alcoholic hepatic cirrhosis and documented portal hypertension presents with massive UGI hematemesis. She has bled from esophageal varices before. ETOH 80 on admission. Endoscopy on hold pending correction of clotting defect. PRBCs and FFP infused. Objective Vital Signs Date Time Temp Pulse Resp B/P Pulse Ox O2 Delivery O2 Flow Rate FiO2 06/07/16 08:39 100 100 06/07/16 06:00 116 06/07/16 04:00 99.9 27 64/32 06/06/16 19:00 Mechanical Ventilator Intake and Output 06/06/16 06/06/16 06/07/16 08:00 16:00 00:00 Intake Total 380 ml 5271 ml 3910 ml Output Total 50 ml 5 ml 5 ml Balance 330 ml 5266 ml 3905 ml Result Diagram: 06/07/16 0330 06/07/16 0330 Other Results Laboratory Tests Test 06/06/16 06/07/16 12:32 06:23 Blood Gas Puncture Site ART LINE ART LINE Blood Gas Patient Temperature 98.6 98.6 Blood Gas HCO3 10 mmol/L 8 mmol/L (22-26) (22-26) Blood Gas Base Excess -15.4 mmol/L -20.7 mmol/L (-2-2) (-2-2) Blood Gas Oxygen Saturation 97 % (90-100) 97 % (90-100) Arterial Blood pH 7.26 6.99 (7.380-7.420) (7.380-7.420) Arterial Blood Partial 24 mmHg (38-42) 37 mmHg (38-42) Pressure CO2 Arterial Blood Partial 189 mmHg 217 mmHg Pressure O2 (61-120) (61-120) Arterial Blood Oxygen Content 11.8 Vol % 11.5 Vol % (12.0-20.0) (12.0-20.0) Arterial Blood 1.2 % (0-4) 0.7 % (0-4) Carboxyhemoglobin Arterial Blood Methemoglobin 0.6 % (0-2) 1.1 % (0-2) Blood Gas Hemoglobin 8.3 G/DL 8.0 G/DL (12.0-16.0) (12.0-16.0) Oxygen Delivery Device VENTILATOR VENTILATOR Blood Gas Ventilator Setting 400/14/+5/0.9 PRVC/AC Blood Gas Inspired Oxygen 50 % 100 % Imaging Gen: Ill-appearing, ashen woman. Chronically ill. Head: Conjunctival icterus. Neclk: Supple. Orally intubated. Lungs: Few scattered rhonchi, no crackles. Mostly clear with good air movement. Heart: NL S1S2, crisp sounds. Soft systolic murmur LSB. Marked JVD. Abdomen: Chronically distended. Bowel sounds high pitched, numerous. Tympanitic. No involuntary guarding. Extremities: Wasted muscle, tepid but perfusion adequate. Neuro: Sedated, intubated. Location: Internal A/P Problem List: (1) Acute respiratory failure with hypoxia ICD Code: J96.01 Status: Acute (2) Acute upper GI bleed ICD Code: K92.2 Status: Acute (3) Cirrhosis with alcoholism ICD Code: K70.30 Status: Acute (4) Coagulopathy ICD Code: D68.9 Status: Acute (5) Acute blood loss anemia ICD Code: D62 Status: Acute (6) End stage liver disease ICD Code: K72.90 Status: Acute Assessment and Plan Resp Failure - intubated for an airway protection - PRVC vent mode. - Propofol sedation. - Fentanyl gtt Variceal bleed - Octreotide gtt. - Protonix gtt - aggressive i.v. fluids - albumin i.v. - GI appreciated Portal hypertension - due to ESLD - ETOH etiology - supportive care - unable to use Propranolo or Spironolacton due to severe hypotension Septic shock - gram negative bacteriemia - change Rocephin to Cefepime - add Vanco - empirically Coagulopathy - due to ESLD - FFP. - Vit K. - Serial Hgb DVT/GI prophylaxis - TEDs, SCDs, PPI gtt Overall impression: Presented critically ill with hemorrhagic shock from probable variceal bleed. End-stage hepatic failure with intractable ascites. Continues to drink. High risk for early . Critical Care 37 mins Aramis Puente MD Jun 07, 2016 08:53
[2016-06-07] MEDS: SODIUM CHLORIDE 0.9% FLUSH 5 ML FLUSH IV FLUSH SCH (09:00)
[2016-06-07] MEDS ORDERED: ALBUMIN HUMAN 5% 25 GM/500 ML BOTTLE IV SCH (10:00)
[2016-06-07] MEDS ORDERED: VANCOMYCIN INJ 1,000 MG in SODIUM CHLOR 0.9% 250 ML INJ 250 ML IV ONE (10:00)
[2016-06-07] MEDS: PHYTONADIONE 10 MG/ML VIAL SQ SCH (10:01)
[2016-06-07] MEDS ORDERED: CEFEPIME INJ 2,000 MG in SODIUM CHLORIDE 0.9% INJ 100 ML IV SCH (11:00)
--- NOTE | 2016-06-07 17:35 | HHI.DS ---
Summary Note Date of : Jun 07, 2016 Time Of : 1051 Admission Date Jun 05, 2016 at 22:21 Admitting Diagnosis Variceal bleeding Diagnosis at Time of : (1) Thrombocytopenia ICD Code: D69.6 (2) Leukopenia ICD Code: D72.819 (3) Coagulopathy ICD Code: D68.9 (4) Anemia ICD Code: D64.9 (5) Ascites ICD Code: R18.8 (6) Liver cirrhosis ICD Code: K74.60 (7) Acute respiratory failure with hypoxia ICD Code: J96.01 (8) End stage liver disease ICD Code: K72.90 (9) Acute upper GI bleed ICD Code: K92.2 (10) Encephalopathy ICD Code: G93.40 Brief History 50 y/o woman with alcoholic hepatic cirrhosis and documented portal hypertension presents with massive UGI hematemesis. She has bled from esophageal varices before. ETOH 80 on admission. Endoscopy on hold pending correction of clotting defect. PRBCs and FFP infused. CBC/BMP: 06/07/16 0330 06/07/16 0330 Significant Findings Laboratory Tests Test 06/05/16 06/06/16 06/06/16 06/06/16 21:00 00:15 00:40 01:35 Prothrombin Time 34.0 SEC (9.8-11.6) Activated Partial 81.4 SEC Thromboplast Time (24.3-30.1) Sodium Level 135 MEQ/L (136-145) Carbon Dioxide Level 20.7 MEQ/L (21.0-32.0) Calcium Level 7.3 MG/DL (8.5-10.1) Protein Corrected Calcium 7.6 MG/DL (8.5-10.1) Total Bilirubin 8.8 MG/DL (0.2-1.0) Aspartate Amino Transf 101 U/L (15-37) (AST/SGOT) Alkaline Phosphatase 156 U/L (45-117) Ammonia 90 MCMOL/L (11-32) Troponin I LESS THAN 0.02 NG/ML (0.02-0.05) Albumin 1.9 GM/DL (3.4-5.0) Ethyl Alcohol Level 83 MG/DL (0-5) White Blood Count 11.4 TH/MM3 (4.0-11.0) Red Blood Count 2.32 MIL/MM3 (4.00-5.30) Hemoglobin 7.7 GM/DL 10.2 GM/DL (11.6-15.3) (11.6-15.3) Hematocrit 22.9 % 31.0 % (35.0-46.0) (35.0-46.0) Red Cell Distribution Width 22.3 % (11.6-17.2) Platelet Count 75 TH/MM3 (150-450) Mean Platelet Volume 12.1 FL (7.0-11.0) Neutrophils (%) (Auto) 74.4 % (16.0-70.0) Monocytes (%) (Auto) 12.7 % (0.0-8.0) Neutrophils # (Auto) 8.5 TH/MM3 (1.8-7.7) Monocytes # (Auto) 1.5 TH/MM3 (0-0.9) Tear Drop Cells 1+ (NORMAL) Ovalocytes 1+ (NORMAL) Helmet Cells 1+ (NORMAL) Crenated Cell 1+ (NORMAL) Keratocytes 1+ (NORMAL) Urine Color DARK-BROWN (YELLW/STRAW) Urine Turbidity HAZY (CLEAR) Urine Protein 30 mg/dL (NEG-TRACE) Urine Ketones TRACE mg/dL (NEG) Urine Occult Blood MOD (NEG) Urine Bilirubin LARGE (NEG) Urine Bacteria RARE /hpf (NONE) Urine Mucus FEW /lpf (OCC) Lactic Acid Level 3.3 mmol/L 5.1 mmol/L (0.4-2.0) (0.4-2.0) Blood Gas HCO3 14 mmol/L (22-26) Blood Gas Base Excess -10.0 mmol/L (-2-2) Arterial Blood pH 7.37 (7.380-7.420) Arterial Blood Partial 26 mmHg (38-42) Pressure CO2 Arterial Blood Partial 151 mmHG Pressure O2 (61-120) Blood Gas Hemoglobin 9.6 G/DL (12.0-16.0) Test 06/06/16 06/06/16 06/06/16 06/06/16 04:55 05:02 12:09 12:32 Hemoglobin 11.4 GM/DL 8.4 GM/DL (11.6-15.3) (11.6-15.3) Prothrombin Time 30.8 SEC (9.8-11.6) Activated Partial 69.6 SEC Thromboplast Time (24.3-30.1) Lactic Acid Level 4.6 mmol/L (0.4-2.0) Hematocrit 25.4 % (35.0-46.0) Blood Gas HCO3 10 mmol/L (22-26) Blood Gas Base Excess -15.4 mmol/L (-2-2) Arterial Blood pH 7.26 (7.380-7.420) Arterial Blood Partial 24 mmHg (38-42) Pressure CO2 Arterial Blood Partial 189 mmHg Pressure O2 (61-120) Arterial Blood Oxygen Content 11.8 Vol % (12.0-20.0) Blood Gas Hemoglobin 8.3 G/DL (12.0-16.0) Test 06/06/16 06/06/16 06/07/16 06/07/16 17:15 22:18 03:30 06:23 Hemoglobin 6.9 GM/DL 8.7 GM/DL 8.6 GM/DL (11.6-15.3) (11.6-15.3) (11.6-15.3) Hematocrit 20.8 % 26.2 % 25.9 % (35.0-46.0) (35.0-46.0) (35.0-46.0) Red Blood Count 2.67 MIL/MM3 (4.00-5.30) Red Cell Distribution Width 22.1 % (11.6-17.2) Platelet Count 39 TH/MM3 (150-450) Mean Platelet Volume 12.0 FL (7.0-11.0) Neutrophils (%) (Auto) 85.6 % (16.0-70.0) Lymphocytes # (Auto) 0.6 TH/MM3 (1.0-4.8) Band Neutrophils % 30 % (0-6) Metamyelocytes 14 % (0-1) Myelocytes 3 % (0-0) Nucleated Red Blood Cells 4 /100 WBC (0-0) Platelet Estimate LOW (NORMAL) Tear Drop Cells 1+ (NORMAL) Crenated Cell 1+ (NORMAL) Acanthocytes OCC (NORMAL) Keratocytes OCC (NORMAL) Prothrombin Time 28.9 SEC (9.8-11.6) Sodium Level 135 MEQ/L (136-145) Carbon Dioxide Level 12.0 MEQ/L (21.0-32.0) Anion Gap 18 MEQ/L (5-15) Blood Urea Nitrogen 20 MG/DL (7-18) Creatinine 2.86 MG/DL (0.50-1.00) Estimat Glomerular Filtration 21 ML/MIN (>89) Rate Random Glucose 42 MG/DL (74-106) Calcium Level 6.5 MG/DL (8.5-10.1) Protein Corrected Calcium 7.3 MG/DL (8.5-10.1) Phosphorus Level 7.1 MG/DL (2.5-4.9) Magnesium Level 1.0 MG/DL (1.5-2.5) Total Bilirubin 11.4 MG/DL (0.2-1.0) Aspartate Amino Transf 113 U/L (15-37) (AST/SGOT) Total Protein 5.4 GM/DL (6.4-8.2) Albumin 2.8 GM/DL (3.4-5.0) Blood Gas HCO3 8 mmol/L (22-26) Blood Gas Base Excess -20.7 mmol/L (-2-2) Arterial Blood pH 6.99 (7.380-7.420) Arterial Blood Partial 37 mmHg (38-42) Pressure CO2 Arterial Blood Partial 217 mmHg Pressure O2 (61-120) Arterial Blood Oxygen Content 11.5 Vol % (12.0-20.0) Blood Gas Hemoglobin 8.0 G/DL (12.0-16.0) Imaging Gen: Ill-appearing, ashen woman. Chronically ill. Head: Conjunctival icterus. Neclk: Supple. Orally intubated. Lungs: Few scattered rhonchi, no crackles. Mostly clear with good air movement. Heart: NL S1S2, crisp sounds. Soft systolic murmur LSB. Marked JVD. Abdomen: Chronically distended. Bowel sounds high pitched, numerous. Tympanitic. No involuntary guarding. Extremities: Wasted muscle, tepid but perfusion adequate. Neuro: Sedated, intubated. Hospital Course 50 y/o woman with alcoholic hepatic cirrhosis and documented portal hypertension , HIV, presented with massive UGI hematemesis. She has bled from esophageal varices before. ETOH 80 on admission. Endoscopy w/o active variceal bleeding however severe hypotension despite aggressive i.v. fluid resuscitation and pressor therapy. Despite all medical treatment patient did nopt respond and . Aramis Puente MD Jun 07, 2016 17:35
--- NOTE | 2016-06-07 17:38 | PD.PROCEDR ---
Procedure Note Procedure Central Venous Catheter (CVC, Central Line) Placement Date: 06/06/16 Time: 900 Indication: Hemodynamic instability/Intravenous access A time-out was completed verifying correct patient, procedure, site, positioning , and special equipment if applicable. The patient was placed in a dependent position appropriate for central line placement based on the vein to be cannulated. The patients <right> < neck/ was prepped and draped in sterile fashion. 1% Lidocaine was used to anesthetize the surrounding skin area. A triple lumen <9-Welsh> Cordis catheter was introduced into the the internal jugular/ vein> using the Seldinger technique <and under ultrasound guidance>. The catheter was threaded smoothly over the guide wire and appropriate blood return was obtained. Each lumen of the catheter was evacuated of air and flushed with sterile saline. The catheter was then sutured in place to the skin and a sterile dressing applied. Perfusion to the extremity distal to the point of catheter insertion was checked and found to be adequate. Estimated Blood Loss: <5ml> The patient tolerated the procedure well and there were no complications. Aramis Puente MD Jun 07, 2016 17:38
--- NOTE | 2016-06-07 17:44 | PD.PROCEDR ---
Procedure Note Procedure ARTERIAL LINE (A-Line) PLACEMENT Date:06/06 Time: 925 Indication: Hemodynamic monitoring A time-out was completed verifying correct patient, procedure, site, positioning , and special equipment if applicable. Allens test was performed to ensure adequate perfusion. The patients <right/left> wrist was prepped and draped in sterile fashion. 1% Lidocaine was used to anesthetize the area. A <18G Arrow arterial line was introduced into the brachial artery. The catheter was threaded over the guide wire and the needle was removed with appropriate pulsatile blood return. The catheter was then sutured in place to the skin and a sterile dressing applied. Perfusion to the extremity distal to the point of catheter insertion was checked and found to be adequate. Estimated Blood Loss: 5ml The patient tolerated the procedure well and there were no complications. Aramis Puente MD Jun 07, 2016 17:44
[2016-06-10 00:41] LABS: CRITICAL VALUE YES
== END 2016-06-07 12:32 | disposition expired | DRG 377 ==
LOC: NEPE 20:54 → NEDA 22:21 → N03A 23:41
PROVIDERS: ADMIT Surgery Surgical Critical Care; ATTEND Surgery Surgical Critical Care
PROC: 0BH17EZ Insertion of Endotracheal Airway into Trachea, Via Natural or Artificial Opening (ICD-10-PCS; principal; 2016-06-05)
PROC: 5A1945Z Respiratory Ventilation, 24-96 Consecutive Hours (ICD-10-PCS; 2016-06-05)
PROC: 30233K1 Transfusion of Nonautologous Frozen Plasma into Peripheral Vein, Percutaneous Approach (ICD-10-PCS; 2016-06-05)
PROC: 30233N1 Transfusion of Nonautologous Red Blood Cells into Peripheral Vein, Percutaneous Approach (ICD-10-PCS; 2016-06-05)
PROC: 03HY32Z Insertion of Monitoring Device into Upper Artery, Percutaneous Approach (ICD-10-PCS; 2016-06-07)
PROC: 0DJ08ZZ Inspection of Upper Intestinal Tract, Via Natural or Artificial Opening Endoscopic (ICD-10-PCS; 2016-06-07)
PROC: 05HM33Z Insertion of Infusion Device into Right Internal Jugular Vein, Percutaneous Approach (ICD-10-PCS; 2016-06-07)
PROC: 4A133B1 Monitoring of Arterial Pressure, Peripheral, Percutaneous Approach (ICD-10-PCS; 2016-06-07)
PROC: 4A133J1 Monitoring of Arterial Pulse, Peripheral, Percutaneous Approach (ICD-10-PCS; 2016-06-07)
DX: K92.0 Hematemesis (principal); G93.40 Encephalopathy, unspecified; J96.01 Acute respiratory failure with hypoxia; R65.21 Severe sepsis with septic shock; A41.9 Sepsis, unspecified organism; D68.9 Coagulation defect, unspecified; D62 Acute posthemorrhagic anemia; K76.6 Portal hypertension; K70.31 Alcoholic cirrhosis of liver with ascites; F10.20 Alcohol dependence, uncomplicated; Y90.4 Blood alcohol level of 80-99 mg/100 ml; E78.00 Pure hypercholesterolemia, unspecified; K21.9 Gastro-esophageal reflux disease without esophagitis; I10 Essential (primary) hypertension; E78.5 Hyperlipidemia, unspecified; K31.89 Other diseases of stomach and duodenum; Z21 Asymptomatic human immunodeficiency virus [HIV] infection status
CPT/HCPCS: 31500; 36430; 36556; 36600; 71010; 80053; 80320; 81001; 82105; 82140; 82805; 83605; 83735; 84100; 84484; 85007; 85014; 85018; 85025; 85027; 85610; 85730; 86403; 86850; 86900; 86901; 86920; 86927; 87040; 87186; 87205; 87641; 93005; 94002; 94003; 96365; 96368; 96375; C9113; J0330; J0696; J2250; J2354; J2405; J3010; J3370; J3430; J7030; J7040; J7050; J7060; J7070; J7120; P9016; P9017; P9045; P9047